=== PATIENT | female | born 1970 | race Caucasian/White ===

== ENCOUNTER 2020-01-04 20:02 | Emergency (ER) | payer OTHER ==
--- OUTSIDE RECORDS SUMMARY | 2020-01-04 20:04 | XMS REPORT | Continuity of Care Document ---
:1970 Author Organization [facility] t Address [address] [place] [address] [address] [place] [address] Care Team Providers Name Role Phone Pob1, [facility] Attending Clinician Unavailable Problems This patient has no known problems. Allergies, Adverse Reactions, Alerts This patient has no known allergies or adverse reactions. Medications This patient has no known medications. Procedures This patient has no known procedures. Encounters Start End Encounter Admission Attending Care Care Encounter Source Date/Time Date/Time Type Type Clinicians Facility Department ID 2019-05-09 2019-05-09 Telephone Pob1, Acute [facility] [id number] 00:00:00 00:00:00 [facility] [id number] [place] [id number] Mirtha [phone] nal [address] One Results This patient has no known results.
[2020-01-04] MEDS ORDERED: LIDOCAINE VISCOUS 2% SOLN 15 ML UDC ONE (21:41)
[2020-01-04] MEDS ORDERED: MAGNES/ALUMIN/SIMET 30ML UCUP ONE (21:41)
[2020-01-04 22:01] LABS: Absolute Lymphocytes (CBC) 1.9 K/uL (0.7-4.9); Hematocrit 39.5 % (36.0-45.0); Lymphocytes % 17.4 % (15.3-44.8); MPV 9.8 fL (7.6-11.3); RBC Red Blood Cell Count 4.62 M/uL (3.86-4.86)
[2020-01-04 22:02] LABS: Protime INR 0.95
[2020-01-04 22:12] LABS: ALT/SGPT 25 U/L (12-78); AST/SGOT 16 U/L (15-37); Albumin 3.9 g/dL (3.4-5.0); Alkaline Phosphatase 112 U/L (45-117); BUN Blood Urea Nitrogen 7 mg/dL (7-18); Bicarbonate 28 mmol/L (21-32); Bilirubin Direct < 0.1 mg/dL (0-0.2); Bilirubin Total 0.2 mg/dL (0.2-1.0); Glucose Level 94 mg/dL (74-106); Lipase 86 U/L (73-393); Magnesium 2.4 mg/dL (1.8-2.4); NT PRO-BNP 54 pg/mL (<125); Potassium 3.6 mmol/L (3.5-5.1); Protein, Total 7.2 g/dL (6.4-8.2); Sodium Level 142 mmol/L (136-145); Troponin (Emerg Dept Use Only) < 0.02 ng/mL (0.0-0.045)
[2020-01-04] MEDS ORDERED: FAMOTIDINE 20 MG/2 ML VIAL IV ONE (22:19)
[2020-01-04 23:20] LABS: Urine Blood TRACE (NEG); Urine Glucose NEGATIVE (NEG); Urine Protein NEGATIVE (NEG)
--- NOTE | 2020-01-05 01:29 | ER ---
Nurse's Notes [facility] Name: Winter Hubbard Age: 49 yrs Sex: Female : 1970 Arrival Date: 01/04/2020 Time: 20:05 Bed 15 Private MD: Diagnosis: Globus Sensation of throat Presentation: 01/03 20:20 Chief complaint: Patient states: Pressure to throat area since last night. States she ll1 took her nighttime pills last night, then ate gumbo. Feels like something might be stuck. 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 Coronavirus screen: Client denies travel out of the [place] in the last 14 days. At this time, the client does not indicate any symptoms associated with coronavirus-19. Ebola Screen: Patient denies travel to an Ebola-affected area in the 21 days before illness onset. Initial Sepsis Screen: Does the patient meet any 2 criteria? HR > 90 bpm. No. Patient's initial sepsis screen is negative. Does the patient have a suspected source of infection? No. Patient's initial sepsis screen is negative. Risk Assessment: Do you want to hurt yourself or someone else? Patient reports no desire to harm self or others. Onset of symptoms was January 03, 2020. 20:20 Method Of Arrival: Ambulatory ll1 20:20 Acuity: AMALIA 3 ll1 Triage Assessment: 21:09 General: Appears uncomfortable, well groomed, Behavior is calm, cooperative. Pain: cr4 Complains of pain in throat Pain does not radiate. Pain currently is 6 out of 10 on a pain scale. Quality of pain is described as dull, Pain began 3 hours ago. Is intermittent, Aggravated by eating. EENT: No deficits noted. Reports. Neuro: No deficits noted. 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 Denies weakness blurred vision. Cardiovascular: No deficits noted. Reports None Denies chest pain, Heart tones S1 S2. Respiratory: No deficits noted. Airway is patent Trachea midline Respiratory effort is even, unlabored, Respiratory pattern is regular. GI: Patient currently denies nausea, vomiting. : Denies burning with urination, cramping urinary frequency. Derm: No deficits noted. Musculoskeletal: No deficits noted. 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 - Social history:: Smoking status: Patient reports the use of cigarette tobacco products, smokes one pack cigarettes per day. Screenin:10 Abuse screen: Denies threats or abuse. Nutritional screening: No deficits noted. cr4 Tuberculosis screening: No symptoms or risk factors identified. Fall Risk None identified. Assessment: 21:09 General: see triage assessment. cr4 21:40 Reassessment: No changes from previously documented assessment. Patient and/or family cr4 updated on plan of care and expected duration. Pain level reassessed. Patient is alert, oriented x 3, equal unlabored respirations, skin warm/dry/pink. . 22:20 Reassessment: Patient and/or family updated on plan of care and expected duration. Pain cr4 level reassessed. Patient is alert, oriented x 3, equal unlabored respirations, skin warm/dry/pink. Patient states feeling better. Cardiovascular: Denies chest pain, diaphoresis, lightheadedness, shortness of breath. GI: Patient currently denies diarrhea, nausea, pain. EENT: Reports continues to report sensation of having something stuck in her throat.. 23:10 Reassessment: Patient and/or family updated on plan of care and expected duration. Pain cr4 level reassessed. Patient is alert, oriented x 3, equal unlabored respirations, skin warm/dry/pink. Patient states feeling better. Respiratory: No deficits noted. 01/04 00:51 Reassessment: Patient and/or family updated on plan of care and expected duration. Pain cr4 level reassessed. Patient states feeling better. patient sleeping easily woken up.. 01:25 Reassessment: Patient states feeling better. Patient states symptoms have improved. cr4 states improvement after CT contrast, Patient up to Br.. Vital Signs: 01/03 20:20 BP 140 / 106; Pulse 93; Resp 16; Temp 97.7; Pulse Ox 98% on R/A; Weight 61.23 kg; ll1 Height 5 ft. 1 in. (154.94 cm); Pain 6/10; 21:09 BP 146 / 88; Pulse 82; Resp 18; Temp 98.4; Pulse Ox 98% ; Pain 4/10; cr4 22:34 BP 119 / 70; Pulse 82; Resp 18; Temp 98.7; Pulse Ox 94% ; Pain 4/10; cr4 01/04 00:48 BP 121 / 57; Pulse 73; Resp 18; Pulse Ox 96% ; Pain 4/10; cr4 01:00 BP 114 / 63; Pulse 73; Resp 16; Temp 98.7; Pulse Ox 94% ; Pain 3/10; cr4 01/03 20:20 Body Mass Index 25.51 (61.23 kg, 154.94 cm) ll1 ED Course: 01/03 20:05 Patient arrived in ED. ag3 20:23 Triage completed. ll1 20:24 Arm band placed on. ll1 21:04 Roldan Jimnéez MD is Attending Physician. 7 21:30 Inserted saline lock: 20 gauge in right antecubital area, using aseptic technique. cr4 22:00 Patient has correct armband on for positive identification. Bed in low position. Call cr4 light in reach. Side rails up X2. 22:00 Lights dimmed. Warm blanket given. cr4 22:09 XRAY Chest (1 view) In Process Unspecified. EDMS 23:29 Zion Burgess, RN is Primary Nurse. jb4 01/04 00:36 CT Soft Tissue Neck W/contr In Process Unspecified. EDMS 00:50 Vicky Trimble, RN is Primary Nurse. cr4 01:00 No provider procedures requiring assistance completed. cr4 01:27 Nargis Moseley MD is Referral Physician. mh7 01:27 Suhail Walsh MD is Referral Physician. mh7 01:40 IV discontinued, intact, bleeding controlled. cr4 03:42 Throat Culture Sent. cr4 Administered Medications: 01/03 21:40 Drug: GI Cocktail without - (Maalox Suspension 30 ml, Lidocaine Liquid 2 % 15 cr4 ml) Route: PO; 22:00 Follow up: Response: No adverse reaction cr4 22:30 Follow up: Response: No adverse reaction; Pain is decreased cr4 22:16 Drug: Pepcid 20 mg Route: IVP; Site: right antecubital; cr4 22:40 Follow up: Response: No adverse reaction cr4 Outcome: 01/04 01:28 Discharge ordered by MD. do 01:40 Discharged to home ambulatory. cr4 01:40 Condition: good 01:40 Discharge instructions given to patient, Instructed on discharge instructions, follow up and referral plans. Demonstrated understanding of instructions, follow-up care. 01:44 Patient left the ED. cr4 Signatures: Dispatcher [employer] Vicky Hua RN RN cr4 Zion Burgess RN RN jb4 Haylee Elizondo Lynsay RN RN ll1 Roldan Jiménez MD MD mh7 Corrections: (The following items were deleted from the chart) 03:35 01:00 Inserted saline lock: 20 gauge in right antecubital area, using aseptic cr4 technique. cr4
--- NOTE | 2020-01-05 01:29 | EDPHYS ---
Physician Documentation [facility] [place], [place] Name: Winter Hubbard Age: 49 yrs Sex: Female : 1970 Arrival Date: 01/04/2020 Time: 20:05 Bed 15 Private MD: BENNY Physician Roldan Jiménez HPI: 01/03 21:50 This 49 yrs old Female presents to ER via Ambulatory with complaints of mh7 Difficulty Swallowing. 21:50 The patient presents with pain with swallowing. The patient describes throat pain as mh7 intermittent. Onset: The symptoms/episode began/occurred yesterday. Severity of symptoms: At their worst the symptoms were moderate, yesterday, in the emergency department the symptoms have improved, moderately. Modifying factors: The symptoms are alleviated by nothing, the symptoms are aggravated by foods, swallowing, Patient's oral intake status: good Denies contact with similarly ill indivduals. Associated signs and symptoms: Pertinent positives: chest pain, , Pertinent negatives chills, cough, diarrhea, dysphagia, earache, fever, flu-like symptoms, headache, nausea, rhinorrhea, shortness of breath, sore throat, vomiting. Patient reports pain in throat and chest area that started yesterday after taking a few bites of gumbo. States that pain is worse with swallowing. She has been able to eat food and swallow liquids. She denies any fever, SOB, nausea, vomiting, abdominal pain.. 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 - Social history:: Smoking status: Patient reports the use of cigarette tobacco products, smokes one pack cigarettes per day. ROS: 21:50 Constitutional: Negative for fever, chills, and weight loss, Eyes: Negative for injury, mh7 pain, redness, and discharge, Neck: Negative for injury, pain, and swelling, Respiratory: Negative for shortness of breath, cough, wheezing, and pleuritic chest pain, Abdomen/GI: Negative for abdominal pain, nausea, vomiting, diarrhea, and constipation, Back: Negative for injury and pain, : Negative for injury, bleeding, discharge, and swelling, MS/Extremity: Negative for injury and deformity, Skin: Negative for injury, rash, and discoloration, Neuro: Negative for headache, weakness, numbness, tingling, and seizure, Psych: Negative for depression, anxiety, suicide ideation, homicidal ideation, and hallucinations, Allergy/Immunology: Negative for hives, rash, and allergies, Endocrine: Negative for neck swelling, polydipsia, polyuria, polyphagia, and marked weight changes, Hematologic/Lymphatic: Negative for swollen nodes, abnormal bleeding, and unusual bruising. Exam: 21:50 Constitutional: This is a well developed, well nourished patient who is awake, alert, mh7 and in no acute distress. Head/Face: Normocephalic, atraumatic. Eyes: Pupils equal round and reactive to light, extra-ocular motions intact. Lids and lashes normal. Conjunctiva and sclera are non-icteric and not injected. Cornea within normal limits. Periorbital areas with no swelling, redness, or edema. ENT: Nares patent. No nasal discharge, no septal abnormalities noted. Tympanic membranes are normal and external auditory canals are clear. Oropharynx with no redness, swelling, or masses, exudates, or evidence of obstruction, uvula midline. Mucous membranes moist. Neck: Trachea midline, no thyromegaly or masses palpated, and no cervical lymphadenopathy. Supple, full range of motion without nuchal rigidity, or vertebral point tenderness. No Meningismus. Chest/axilla: Normal chest wall appearance and motion. Nontender with no deformity. No lesions are appreciated. Cardiovascular: Regular rate and rhythm with a normal S1 and S2. No gallops, murmurs, or rubs. Normal PMI, no JVD. No pulse deficits. Respiratory: Lungs have equal breath sounds bilaterally, clear to auscultation and percussion. No rales, rhonchi or wheezes noted. No increased work of breathing, no retractions or nasal flaring. Abdomen/GI: Soft, non-tender, with normal bowel sounds. No distension or tympany. No guarding or rebound. No evidence of tenderness throughout. Back: No spinal tenderness. No costovertebral tenderness. Full range of motion. Skin: Warm, dry with normal turgor. Normal color with no rashes, no lesions, and no evidence of cellulitis. MS/ Extremity: Pulses equal, no cyanosis. Neurovascular intact. Full, normal range of motion. Neuro: Awake and alert, GCS 15, oriented to person, place, time, and situation. Cranial nerves II-XII grossly intact. Motor strength 5/5 in all extremities. Sensory grossly intact. Cerebellar exam normal. Normal gait. Psych: Awake, alert, with orientation to person, place and time. Behavior, mood, and affect are within normal limits. Vital Signs: 20:20 BP 140 / 106; Pulse 93; Resp 16; Temp 97.7; Pulse Ox 98% on R/A; Weight 61.23 kg; ll1 Height 5 ft. 1 in. (154.94 cm); Pain 6/10; 21:09 BP 146 / 88; Pulse 82; Resp 18; Temp 98.4; Pulse Ox 98% ; Pain 4/10; cr4 22:34 BP 119 / 70; Pulse 82; Resp 18; Temp 98.7; Pulse Ox 94% ; Pain 4/10; cr4 01/04 00:48 BP 121 / 57; Pulse 73; Resp 18; Pulse Ox 96% ; Pain 4/10; cr4 01:00 BP 114 / 63; Pulse 73; Resp 16; Temp 98.7; Pulse Ox 94% ; Pain 3/10; cr4 01/03 20:20 Body Mass Index 25.51 (61.23 kg, 154.94 cm) ll1 MDM: 01:25 Differential diagnosis: Allergic rhinitis, bronchitis, chemical burn, epiglottitis, mh7 gastroesophageal reflux disease, laryngitis, peritonsillar abscess pharyngitis, retropharyngeal abcess upper respiratory infection, uvulitis. Data reviewed: vital signs, nurses notes, lab test result(s), cardiac enzymes, CBC, electrolytes, urinalysis, EKG, radiologic studies, CT scan, plain films. Data interpreted: Pulse oximetry: on room air is 98 %. Interpretation: normal. Counseling: I had a detailed discussion with the patient and/or guardian regarding: the historical points, exam findings, and any diagnostic results supporting the discharge/admit diagnosis, the presence of at least one elevated blood pressure reading (>120/80) during this emergency department visit, lab results, radiology results, the need for outpatient follow up, to return to the emergency department if symptoms worsen or persist or if there are any questions or concerns that arise at home. Response to treatment: the patient's symptoms have resolved after treatment, the patient's blood pressure is in an acceptable range, mental status has returned to baseline, the patient no longer shows bradycardia, the patient is not short of breath, the patient is not tachycardic, the patient's pain is gone, the patient's temperature has normalized, Tolerating PO intake without difficulty. 01:[address] [facility] 01/03 21:23 Order name: Basic Metabolic Panel; Complete Time: 22:47 [facility] 01/03 21:23 Order name: CBC with Diff; Complete Time: 22:47 [facility] 01/03 21:23 Order name: LFT's; Complete Time: 22:47 [facility] 01/03 21:23 Order name: Magnesium; Complete Time: 22:47 [facility] 01/03 21:23 Order name: NT PRO-BNP; Complete Time: 22:47 [facility] 01/03 21:23 Order name: PT-INR; Complete Time: 22:47 [facility] 01/03 21:23 Order name: Troponin (emerg Dept Use Only); Complete Time: 22:47 [facility] 01/03 21:23 Order name: XRAY Chest (1 view) [facility] 01/03 21:57 Order name: Rapid Strep; Complete Time: 22:47 [facility] 01/03 22:00 Order name: Lipase; Complete Time: 22:47 [facility] 01/03 22:43 Order name: Throat Culture [facility] 01/03 23:19 Order name: Urine Dipstick--Ancillary (enter results); Complete Time: 23:24 [facility] 01/03 23:19 Order name: Urine --Ancillary (enter results); Complete Time: 23:24 [facility] 01/03 21:23 Order name: EKG; Complete Time: 21:24 [facility] 01/03 21:23 Order name: Cardiac monitoring [facility] 01/03 21:23 Order name: EKG - Nurse/Tech; Complete Time: 21:31 [facility] 01/03 21:23 Order name: IV Saline Lock; Complete Time: 21:42 [facility] 01/03 21:23 Order name: Labs collected and sent; Complete Time: 03:05 [facility] 01/03 21:23 Order name: O2 Per Protocol; Complete Time: 03:05 [facility] 01/03 21:23 Order name: O2 Sat Monitoring; Complete Time: 21:42 [facility] 01/03 21:23 Order name: Urine Dipstick-Ancillary (obtain specimen); Complete Time: 03:02 [facility] 01/03 21:23 Order name: Urine Test (obtain specimen); Complete Time: 03:02 [facility] 01/03 23:16 Order name: CT Soft Tissue Neck W/contr [facility] Administered Medications: 01/03 21:40 Drug: GI Cocktail without - (Maalox Suspension 30 ml, Lidocaine Liquid 2 % 15 cr4 ml) Route: PO; 22:00 Follow up: Response: No adverse reaction cr4 22:30 Follow up: Response: No adverse reaction; Pain is decreased cr4 22:16 Drug: Pepcid 20 mg Route: IVP; Site: right antecubital; cr4 22:40 Follow up: Response: No adverse reaction cr4 Disposition: 01/05/20 01:28 Discharged to Home. Impression: Globus Sensation of throat. - Condition is Stable. - Discharge Instructions: Dysphagia, Swallowed Foreign Body, Adult, [id number]. - Medication Reconciliation Form, Thank You Letter, Antibiotic Education, Prescription Opioid Use form. - Follow up: Private Physician; When: 1 - 2 days; Reason: Worsening of condition, Recheck today's complaints, Continuance of care, Re-evaluation by your physician. Follow up: Nargis Moseley MD; When: 1 - 2 days; Reason: Worsening of condition, Recheck today's complaints. Follow up: Suhail Walsh MD; When: 1 - 2 days; Reason: Worsening of condition, Recheck today's complaints. - Problem is new. - Symptoms have improved. Signatures: Dispatcher [employer] [facility] Vicky Trimble RN RN cr4 Karuna Rodriguez RN RN ll1 Roldan Jiménez MD MD 7 Corrections: (The following items were deleted from the chart) 22:00 21:57 LIPASE+C.LAB.BRZ ordered. [facility] 01/04 01:44 01:28 01/05/2020 01:28 Discharged to Home. Impression: Globus Sensation of throat. cr4 Condition is Stable. Forms are Medication Reconciliation Form, Thank You Letter, Antibiotic Education, Prescription Opioid Use. Follow up: Private Physician; When: 1 - 2 days; Reason: Worsening of condition, Recheck today's complaints, Continuance of care, Re-evaluation by your physician. Follow up: Nargis Moseley; When: 1 - 2 days; Reason: Worsening of condition, Recheck today's complaints. Follow up: Suhail Walsh; When: 1 - 2 days; Reason: Worsening of condition, Recheck today's complaints. Problem is new. Symptoms have improved. mh7
--- NOTE | 2020-01-05 08:22 | RAD REPORT ---
EXAM DESCRIPTION: Sammy Single View01/04/2020 10:09 pm CLINICAL HISTORY: Chest pain COMPARISON: 2015 FINDINGS: The lungs are moderately hyperaerated. The lungs appear clear of acute infiltrate. The heart is normal size IMPRESSION: COPD without visualization acute abnormality
[2020-01-05 11:36] VITALS: BP 140/106; TEMP 97.7; O2SAT 98
--- NOTE | 2020-01-07 11:22 | RAD REPORT ---
EXAM DESCRIPTION: CT - Soft Tissue Neck W/Contr - 01/05/2020 7:12 am CLINICAL HISTORY: PAIN TECHNIQUE: Contiguous axial images obtained through the neck following the uneventful administration of IV contrast. Coronal and sagittal reformatted images were provided. This exam was performed according to our departmental dose-optimization program, which includes autom ated exposure control, adjustment of the mA and/or kV according to patient size and/or use of iterati ve reconstruction technique. COMPARISON: None available for comparison FINDINGS: Oropharynx: Unremarkable. No significant tonsillar enlargement. No peritonsillar abscess. Hypopharynx: Unremarkable Larynx: Unremarkable. Normal epiglottis. Trachea: Unremarkable Retropharyngeal space: Unremarkable Submandibular/parotid glands: Unremarkable. Normal in size. Thyroid: Unremarkable Bones/joints: Mild to moderate multilevel degenerative changes. Soft tissues: Unremarkable Vessels: Unremarkable Lymph nodes: No pathologically enlarged lymph nodes. Paranasal sinuses: Bilateral maxillary sinus mucous retention cyst/polyps. Minimal left maxillary sin us mucosal thickening. Mastoid air cells: Well-aerated Lung apices: Centrilobular emphysema. IMPRESSION: 1. No acute inflammatory process identified. 2. Other findings as above. Electronically signed by: Evi Valentin MD 01/05/2020 1:02 AM [employer]OCKROOM ASSOCIATE Due to temporary technical issues with the PACS/Fluency reporting system, reports are being signed by the in house radiologist without review as a courtesy to ensure prompt reporting. The interpreting r adiologist is fully responsible for the content of the report.
== END 2020-01-05 01:44 | disposition home or self-care (01) ==
LOC: ER 20:02
DX: F45.8 Other somatoform disorders (principal); F17.210 Nicotine dependence, cigarettes, uncomplicated
CPT/HCPCS: 93005; 87070; 85025; 80048; 36415; 83735; 81025; 85610; 80076; 87081; 81003; 84484; 83690; 83880; 70491; 71045; 96374; 99284; Q9967

== ENCOUNTER 2020-04-17 21:51 | Emergency (ER) | payer OTHER ==
--- OUTSIDE RECORDS SUMMARY | 2020-04-17 21:54 | XMS REPORT | Continuity of Care Document ---
:1970 Author Organization [facility] t Address [address] [place] [address] Care Team Providers Name Role Phone Pob1, [facility] Attending Clinician Unavailable Problems This patient has no known problems. Allergies, Adverse Reactions, Alerts This patient has no known allergies or adverse reactions. Medications This patient has no known medications. Procedures This patient has no known procedures. Encounters Start End Encounter Admission Attending Care Care Encounter Source Date/Time Date/Time Type Type Clinicians Facility Department ID 2019-05-09 2019-05-09 Telephone Pob1, Acute [facility] [id number] 00:00:00 00:00:00 [facility] [id number] [place] [id number] Mirtha [id number] nal [address] One Results This patient has no known results.
[2020-04-17] MEDS ORDERED: ASPIRIN 81 MG CHEWABLE TABLET ONE (22:59)
[2020-04-17] MEDS ORDERED: KETOROLAC 30 MG/ML INJ ONE (22:59)
[2020-04-17] MEDS ORDERED: NA CHLORIDE 0.9% 500 ML ONE (22:59)
[2020-04-17 23:06] LABS: Absolute Lymphocytes (CBC) 2.1 K/uL (0.7-4.9); Basophils % 1.2 % (0-1.3); Hematocrit 35.6 % (36.0-45.0); Lymphocytes % 36.1 % (15.3-44.8); MPV 9.4 fL (7.6-11.3); RBC Red Blood Cell Count 4.18 M/uL (3.86-4.86)
[2020-04-17 23:08] LABS: Protime INR 0.91
[2020-04-17 23:25] LABS: ALT/SGPT 48 U/L (12-78); AST/SGOT 28 U/L (15-37); Albumin 3.5 g/dL (3.4-5.0); Alkaline Phosphatase 129 U/L (45-117); BUN Blood Urea Nitrogen 10 mg/dL (7-18); Bicarbonate 26 mmol/L (21-32); Bilirubin Direct < 0.1 mg/dL (0-0.2); Bilirubin Total 0.1 mg/dL (0.2-1.0); Glucose Level 94 mg/dL (74-106); Magnesium 2.3 mg/dL (1.8-2.4); NT PRO-BNP 150 pg/mL (<125); Potassium 3.4 mmol/L (3.5-5.1); Protein, Total 6.4 g/dL (6.4-8.2); Sodium Level 140 mmol/L (136-145); Troponin (Emerg Dept Use Only) < 0.02 ng/mL (0.0-0.045)
--- NOTE | 2020-04-18 00:42 | EDPHYS ---
Physician Documentation [facility] Name: Winter Hubbard Age: 50 yrs Sex: Female : 1970 Arrival Date: 04/17/2020 Time: 21:53 Bed 23 Private MD: Everardo Anaya HPI: 04/17 22:29 This 50 yrs old Female presents to ER via Ambulatory with complaints of Back cp Pain, Neck Pain. 22:29 The patient presents with pain that is acute, with no known mechanism of injury. The cp symptoms are located in the left scapular area and left subscapular area. Onset: The symptoms/episode began/occurred yesterday. The pain radiates to the left shoulder and left side of chest. 22:30 Patient reports pain started in area of left mid back/left scapula area 2 days ago. cp Patient denies injury and reports pain worse with certain movements with pain wrapping around side of and to front of left chest. 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 - Social history:: Smoking status: Patient reports the use of cigarette tobacco products, smokes one pack cigarettes per day. ROS: 22:30 Constitutional: Negative for body aches, chills, fever, poor PO intake. cp 22:30 Eyes: Negative for injury, pain, redness, and discharge. cp 22:30 ENT: Negative for ear pain, sore throat, difficulty swallowing, difficulty handling secretions. 22:30 Cardiovascular: Positive for chest pain, of the left side of chest, Negative for edema, palpitations. 22:30 Respiratory: Negative for cough, shortness of breath, wheezing. 22:30 Abdomen/GI: Negative for abdominal pain, nausea, vomiting, and diarrhea. 22:30 Back: Positive for pain at rest, pain with movement, of the left scapular area and left subscapular area. 22:30 Skin: Negative for rash. 22:30 Neuro: Negative for altered mental status, headache, syncope, weakness. 22:30 All other systems are negative. Exam: 22:28 ECG was reviewed by the Attending Physician. cp 22:35 Constitutional: The patient appears in no acute distress, alert, awake, cp non-diaphoretic, non-toxic, well developed, well nourished. 22:35 Head/Face: Normocephalic, atraumatic. cp 22:35 Eyes: Periorbital structures: appear normal, Conjunctiva: normal, no exudate, no injection, Sclera: no appreciated abnormality, Lids and lashes: appear normal, bilaterally. 22:35 ENT: External ear(s): are unremarkable, Nose: is normal, Posterior pharynx: Airway: no evidence of obstruction, patent. 22:35 Neck: C-spine: vertebral tenderness, is not appreciated, crepitus, is not appreciated, ROM/movement: is normal, is supple, without pain, no range of motions limitations. 22:35 Chest/axilla: Inspection: normal, Palpation: is normal, no crepitus, no tenderness. 22:35 Cardiovascular: Rate: normal, Rhythm: regular, Pulses: Pulses are 2+ in right radial artery and left radial artery. Edema: is not appreciated, JVD: is not appreciated. 22:35 Respiratory: the patient does not display signs of respiratory distress, Respirations: normal, no use of accessory muscles, no retractions, labored breathing, is not present, Breath sounds: are clear throughout, no decreased breath sounds, no stridor, no wheezing. 22:35 Abdomen/GI: Exam negative for discomfort, distension, guarding, Inspection: abdomen appears normal. 22:35 Back: pain, that is moderate, of the left scapular area and left subscapular area, ROM is painful, with rotation to the right, with rotation to the left, vertebral tenderness, is not appreciated. 22:35 Skin: cellulitis, is not appreciated, no rash present. 22:35 Neuro: Orientation: to person, place \T\ time. Mentation: is normal, Cerebellar function: is grossly normal, Motor: moves all fours, strength is normal, Sensation: is normal. Vital Signs: 21:59 BP 174 / 104; Pulse 94; Resp 17; Temp 98.3; Pulse Ox 99% ; Weight 61.23 kg; Height 5 ll1 ft. 1 in. (154.94 cm); Pain 7/10; 22:29 BP 134 / 83; Pulse 98; Resp 14; Pulse Ox 99% on R/A; vg1 23:30 BP 141 / 82; Pulse 70; Resp 16; Pulse Ox 100% on R/A; vg1 04/18 00:24 BP 126 / 97; Pulse 79; Resp 17 S; Pulse Ox 98% on R/A; bb 04/17 21:59 Body Mass Index 25.51 (61.23 kg, 154.94 cm) ll1 MDM: 04/17 22:20 Patient medically screened. max 22:30 Differential diagnosis: strain, muscle spasm, acute PA, pulmonary embolism, pneumonia. cp 04/18 00:33 Data reviewed: vital signs, nurses notes, lab test result(s), EKG, radiologic studies, cp plain films. 00:33 Test interpretation: by ED physician or midlevel provider: ECG, plain radiologic cp studies. Counseling: I had a detailed discussion with the patient and/or guardian regarding: the historical points, exam findings, and any diagnostic results supporting the discharge/admit diagnosis, lab results, radiology results, the need for outpatient follow up, a family practitioner, to return to the emergency department if symptoms worsen or persist or if there are any questions or concerns that arise at home. Response to treatment: Pain improved with meds. Los suspicion as cardiac cause of pain. EKG normal, negative troponin and patient with tenderness to palpation in left scapular area. Will discharge to home for continued monitoring. 04/17 22:25 Order name: Basic Metabolic Panel cp 04/17 22:25 Order name: CBC with Diff cp 04/17 22:25 Order name: LFT's cp 04/17 22:59 Order name: Basic Metabolic Panel; Complete Time: 23:39 EDMS 04/17 23:40 Interpretation: Normal except: K 3.4; CL 109; CA 8.1. cp 04/17 22:59 Order name: Liver (Hepatic) Function; Complete Time: 23:39 EDMS 04/17 22:59 Order name: Troponin (Emerg Dept Use Only); Complete Time: 23:39 EDMS 04/17 22:59 Order name: NT PRO-BNP; Complete Time: 23:39 EDMS 04/17 23:00 Order name: Magnesium; Complete Time: 23:39 EDMS 04/17 23:00 Order name: CBC with Automated Diff; Complete Time: 23:39 EDMS 04/17 23:00 Order name: Protime (+INR); Complete Time: 23:39 EDMS 04/17 22:25 Order name: EKG; Complete Time: 00:44 cp 04/17 22:25 Order name: Cardiac monitoring; Complete Time: 22:30 cp 04/17 22:25 Order name: EKG - Nurse/Tech; Complete Time: 22:30 cp 04/17 22:25 Order name: IV Saline Lock; Complete Time: 22:58 cp 04/17 22:25 Order name: Labs collected and sent; Complete Time: 22:58 cp 04/18 00:43 Order name: Chest Single View EDMS 04/17 22:25 Order name: O2 Per Protocol; Complete Time: 22:30 cp 04/17 22:25 Order name: O2 Sat Monitoring; Complete Time: 22:30 cp EC/04 22:28 Rate is 85 beats/min. Rhythm is regular. NH interval is normal. QRS interval is normal. cp QT interval is normal. Interpreted by me. Reviewed by me. Administered Medications: 23:04 Drug: Aspirin Chewable Tablet 324 mg Route: PO; vg1 04/18 00:27 Follow up: Response: No adverse reaction bb 04/17 23:04 Drug: NS 0.9% 500 ml Route: IV; Rate: bolus; Site: right antecubital; vg1 23:04 Drug: TORadol - Ketorolac 15 mg Route: IVP; Site: right antecubital; vg1 04/18 00:27 Follow up: Response: No adverse reaction bb 01:02 Drug: Flexeril 10 mg Route: PO; bb 01:03 Follow up: Response: Medication administered at discharge. bb 01:02 Drug: Potassium Effervescent Tablet 25 mEq Route: PO; bb 01:03 Follow up: Response: Medication administered at discharge. bb 01:03 Drug: Lidoderm 5 % (700 mg/patch) 1 patches Route: Topical; Site: affected area; bb 01:03 Follow up: Response: Medication administered at discharge. bb Disposition: 05:52 Co-signature as Attending Physician, Everardo Diaz MD I agree with the assessment and max plan of care. Disposition: 04/18/20 00:34 Discharged to Home. Impression: Other chest pain, Strain of muscle and tendon of back wall of thorax - left. - Condition is Stable. - Discharge Instructions: Nonspecific Chest Pain, Thoracic Strain, Aspirin and Your Heart, Heat Therapy. - Prescriptions for Lidoderm 5 % Topical adhesive patch,medicated - apply 1 patch by TRANSDERMAL route once daily; 1 box. Cyclobenzaprine 10 mg Oral Tablet - take 1 tablet by ORAL route every 8 hours As needed; 20 tablet. Diclofenac Sodium 75 mg Oral Tablet, Delayed Release (E.C.) - take 1 tablet by ORAL route 2 times per day; 20 tablet. - Medication Reconciliation Form, Thank You Letter, Antibiotic Education, Prescription Opioid Use form. - Follow up: Private Physician; When: 2 - 3 days; Reason: Recheck today's complaints. - Problem is new. - Symptoms have improved. Signatures: Dispatcher [employer] EDCT Everardo Diaz MD MD cha Ballard, Brenda, RN RN bb Everardo Zabala PA PA cp Garcia, Victoria, RN RN vg1 Karuna Rodriguez RN RN ll1 Corrections: (The following items were deleted from the chart) 04/17 23:40 23:39 Normal except: K 3.4; CL 109. cp cp 04/18 01: 00:43 Basic Metabolic Panel ordered. EDCT EDCT 01: 00:43 Liver (Hepatic) Function ordered. [facility] EDCT 01: 00:43 MAGNESIUM+C.LAB.BRZ ordered. [facility] EDCT : 00:44 PROBNP+C.LAB.BRZ ordered. [facility] EDCT 01: 00:44 TROPONIN (EMERG DEPT USE ONLY)+C.LAB.BRZ ordered. [facility] EDCT : 00:43 CBC with Automated Diff ordered. [facility] EDCT : 00:44 PROTIME (+INR)+COAG.LAB.BRZ ordered. [facility] EDCT :05 00:34 04/18/2020 00:34 Discharged to Home. Impression: Other chest pain; Strain of bb muscle and tendon of back wall of thorax - left. Condition is Stable. Forms are Medication Reconciliation Form, Thank You Letter, Antibiotic Education, Prescription Opioid Use. Follow up: Private Physician; When: 2 - 3 days; Reason: Recheck today's complaints. Problem is new. Symptoms have improved. cp
--- NOTE | 2020-04-18 00:42 | ER ---
Nurse's Notes [facility] Name: Winter Hubbard Age: 50 yrs Sex: Female : 1970 Arrival Date: 04/17/2020 Time: 21:53 Bed 23 Private MD: Diagnosis: Other chest pain;Strain of muscle and tendon of back wall of thorax-left Presentation: 04/17 21:59 Chief complaint: Patient states: L posterior shoulder pain for 2 days that radiates ll1 into L arm and L lateral chest. + dizzy. Coronavirus screen: Client denies travel out of the [place] in the last 14 days. At this time, the client does not indicate any symptoms associated with coronavirus-19. Ebola Screen: Patient denies travel to an Ebola-affected area in the 21 days before illness onset. Initial Sepsis Screen: Does the patient meet any 2 criteria? HR > 90 bpm. No. Patient's initial sepsis screen is negative. Does the patient have a suspected source of infection? No. Patient's initial sepsis screen is negative. Risk Assessment: Do you want to hurt yourself or someone else? Patient reports no desire to harm self or others. Onset of symptoms was April 16, 2020. 21:59 Method Of Arrival: Ambulatory ll1 21:59 Acuity: AMALIA 3 ll1 RADIOLOGY SPECIAL PROCEDURE TECH: 04/18 01:05 LMP N/A - bb Historical: - Allergies: 04/17 22:01 No Known Allergies; ll1 - PMHx: 22:01 Bipolar disorder; Hypothyroidism; ll1 - PSHx: 22:01 ectopic ; ; ll1 - Immunization history:: Flu vaccine is not up to date. - Social history:: Smoking status: Patient reports the use of cigarette tobacco products, smokes one pack cigarettes per day. Screenin:30 Abuse screen: Denies threats or abuse. Nutritional screening: No deficits noted. vg1 Tuberculosis screening: No symptoms or risk factors identified. Fall Risk No fall in past 12 months (0 pts). No secondary diagnosis (0 pts). IV access (20 points). Ambulatory Aid- None/Bed Rest/Nurse Assist (0 pts). Gait- Normal/Bed Rest/Wheelchair (0 pts) Mental Status- Oriented to own ability (0 pts). Total Troy Fall Scale indicates No Risk (0-24 pts). Assessment: 22:27 General: Appears in no apparent distress. comfortable, Behavior is calm, cooperative. vg1 Pain: Complains of pain in Left posterior shoulder that radiates to the left arm and left lateral chest Pain currently is 0 out of 10 on a pain scale. at worst was 7 out of 10 on a pain scale. Alleviated by rest, Aggravated by increased activity. Neuro: Level of Consciousness is awake, alert, obeys commands, Oriented to person, place, time, situation. Cardiovascular: Patient's skin is warm and dry. Rhythm is sinus rhythm. Respiratory: Airway is patent Respiratory effort is even, unlabored, Respiratory pattern is regular, symmetrical, Breath sounds are clear bilaterally. GI: No signs and/or symptoms were reported involving the gastrointestinal system. : No signs and/or symptoms were reported regarding the genitourinary system. EENT: No signs and/or symptoms were reported regarding the EENT system. Derm: Skin is intact, is healthy with good turgor. Musculoskeletal: Circulation, motion, and sensation intact. 23:39 Reassessment: Patient appears in no apparent distress at this time. No changes from vg1 previously documented assessment. Patient and/or family updated on plan of care and expected duration. Pain level reassessed. Patient is alert, oriented x 3, equal unlabored respirations, skin warm/dry/pink. 04/18 00:23 Reassessment: Patient and/or family updated on plan of care and expected duration. Pain bb level reassessed. Patient is alert, oriented x 3, equal unlabored respirations, skin warm/dry/pink. IV site intact, no erythema or edema noted. Pt awaiting repeat cardiac enzymes. 01:04 Reassessment: Patient is alert, oriented x 3, equal unlabored respirations, skin bb warm/dry/pink. pt verbalized understanding of and agrees to plan of care discharge instructions given pt ambulated with steady gait to exit. Vital Signs: 04/17 21:59 BP 174 / 104; Pulse 94; Resp 17; Temp 98.3; Pulse Ox 99% ; Weight 61.23 kg; Height 5 ll1 ft. 1 in. (154.94 cm); Pain 7/10; 22:29 BP 134 / 83; Pulse 98; Resp 14; Pulse Ox 99% on R/A; vg1 23:30 BP 141 / 82; Pulse 70; Resp 16; Pulse Ox 100% on R/A; vg1 04/18 00:24 BP 126 / 97; Pulse 79; Resp 17 S; Pulse Ox 98% on R/A; bb 04/17 21:59 Body Mass Index 25.51 (61.23 kg, 154.94 cm) ll1 ED Course: 04/17 21:53 Patient arrived in ED. cl3 22:00 Triage completed. ll1 22:01 Arm band placed on. ll1 22:05 Victoria Saenz, ISAAC is Primary Nurse. vg1 22:17 Everardo Zabala PA is PHCP. cp 22:17 Everardo Diaz MD is Attending Physician. cp 22:31 Patient has correct armband on for positive identification. Placed in gown. Bed in low vg1 position. Call light in reach. Side rails up X 1. 22:58 Initial lab(s) drawn, by me, sent to lab. Inserted saline lock: 20 gauge in right vg1 antecubital area, using aseptic technique. Blood collected. 04/18 01:04 Chest Single View In Process Unspecified. EDMS 01:04 No provider procedures requiring assistance completed. IV discontinued, intact, bb bleeding controlled, No redness/swelling at site. Pressure dressing applied. Administered Medications: 04/17 23:04 Drug: Aspirin Chewable Tablet 324 mg Route: PO; vg1 04/18 00:27 Follow up: Response: No adverse reaction bb 04/17 23:04 Drug: NS 0.9% 500 ml Route: IV; Rate: bolus; Site: right antecubital; vg1 23:04 Drug: TORadol - Ketorolac 15 mg Route: IVP; Site: right antecubital; vg1 04/18 00:27 Follow up: Response: No adverse reaction bb 01:02 Drug: Flexeril 10 mg Route: PO; bb 01:03 Follow up: Response: Medication administered at discharge. bb 01:02 Drug: Potassium Effervescent Tablet 25 mEq Route: PO; bb 01:03 Follow up: Response: Medication administered at discharge. bb 01:03 Drug: Lidoderm 5 % (700 mg/patch) 1 patches Route: Topical; Site: affected area; bb 01:03 Follow up: Response: Medication administered at discharge. bb Outcome: 00:34 Discharge ordered by . cp 01:04 Discharged to home ambulatory. bb 01:04 Condition: stable 01:04 Discharge instructions given to patient, Instructed on discharge instructions, follow up and referral plans. medication usage, Demonstrated understanding of instructions, follow-up care, medications, Prescriptions given X 3. 01:05 Patient left the ED. bb Signatures: Dispatcher [employer] EDMS Caitlyn Mccormick RN RN bb Everardo Zabala PA PA cp Lewis, Charde cl3 Victoria Saenz RN RN vg1 Karuna Rodriguez RN RN ll1
[2020-04-18] MEDS ORDERED: POTASSIUM 25 MEQ EFFERV TAB ONE (01:08)
[2020-04-18] MEDS ORDERED: CYCLOBENZAPRINE 10 MG TAB ONE (01:08)
[2020-04-18] MEDS ORDERED: LIDOCAINE 4% PATCH ONE (01:09)
[2020-04-18 01:20] VITALS: TEMP 98.3
[2020-04-18 01:23] VITALS: BP 126/97; O2SAT 98
--- NOTE | 2020-04-18 08:29 | RAD REPORT ---
EXAM DESCRIPTION: RAD - Chest Single View - 04/18/2020 1:04 am CLINICAL HISTORY: LT MID BACK PAIN, CHEST PAIN COMPARISON: December 2019 TECHNIQUE: AP portable chest image was obtained 04/18/2020 1:04 am . FINDINGS: Lungs are clear. Heart and vasculature are normal. No measurable pleural effusion and no p neumothorax. No acute bone abnormality. Patient does have narrowing of the acromial humeral joint spa ce at the lateral margin with soft tissue calcification. No acute aortic findings suspected. IMPRESSION: No acute cardiopulmonary process. Left calcific tendinosis/tendinitis findings are evident but mild fully assessed on portable chest im aging. Correlation is needed to determine if tendon or rotator cuff process could be the source for the lillian ent's pain pattern.
== END 2020-04-18 01:05 | disposition home or self-care (01) ==
LOC: ER 21:51
DX: S29.012A Strain of muscle and tendon of back wall of thorax, initial encounter (principal); F17.210 Nicotine dependence, cigarettes, uncomplicated
CPT/HCPCS: 93005; 85025; 80048; 36415; 83735; 85610; 80076; 84484; 83880; 71045; 96374; 99284; J7040

== ENCOUNTER 2020-07-16 20:01 | Emergency (ER) | payer OTHER ==
--- OUTSIDE RECORDS SUMMARY | 2020-07-16 20:04 | XMS REPORT | Continuity of Care Document ---
:1970 Author Organization [facility] t Address [address] [place] [address] Care Team Providers Name Role Phone ADAN Attending Clinician Unavailable MD Atul ARELLANO Attending Clinician Unavailable Pob[facility], [facility] Attending Clinician Unavailable ADAN Admitting Clinician Unavailable MD Atul ARELLANO Admitting Clinician Unavailable Problems This patient has no known problems. Allergies, Adverse Reactions, Alerts This patient has no known allergies or adverse reactions. Medications This patient has no known medications. Procedures This patient has no known procedures. Encounters Start End Encounter Admission Attending Care Care Encounter Source Date/Time Date/Time Type Type Clinicians Facility Department ID 2020-07-02 2020-07-02 Outpatient [facility] [id number] [place] 00:00:00 00:00:00 [facility]ATEEK 723 [facility] 2020-07-01 2020-07-01 Outpatient ED [facility] [id number] [place] 00:00:00 00:00:00 PRATEEK 533 [facility] 2020-06-26 2020-06-26 Outpatient ED [facility] [id number] [place] 00:00:00 00:00:00 PRATEEK 749 [facility] i 2020-06-26 2020-06-26 Outpatient ED [facility] [id number] [place] 00:00:00 00:00:00 PRATEEK 826 [facility] i 2020-06-26 2020-06-26 Outpatient ED [facility] [id number] [place] 00:00:00 00:00:00 PRATEEK 456 Method i 2020-06-26 2020-06-26 Outpatient [facility] [id number] [place] 00:00:00 00:00:00 PRATEEK 574 Method i 2020-06-26 2020-06-26 Outpatient [facility] [id number] [place] 00:00:00 00:00:00 PRATEEK 307 Method i 2020-06-26 2020-06-26 Outpatient [facility] [id number] [place] 00:00:00 00:00:00 PRATEEK 498 Method i 2019-05-09 2019-05-09 Telephone Pob1, Acute [facility] [id number] 00:00:00 00:00:00 [facility] [id number] [place] [id number] [id number] [place] [address] Results Test Description Test Time Test Comments Results Result Comments Source SARS-CoV-2 (COVID-19) RNA [Presence] in Respiratory sp ecimen by 2020-07-01 18:09:13 TRAY with probe detection Test Item Value Reference Range Interpretation Comme nts SARS-CoV-2 (COVID-19) RNA [Presence] in Respiratory Not detected No t-Detected specimen by TARY with probe detection (test code = 96901-9) Whether patient is employed in a healthcare setting (test code = 30313-6) Whether the patient has symptoms related to condition of interest (test code = 56049-6) Patient was hospitalized because of this condition (test code = 44263-6) Whether the patient was admitted to intensive care unit (ICU) for condition of interest (test code = 30153-3) Whether patient resides in a congregate care setting (test code = 54939-1)
--- NOTE | 2020-07-16 21:15 | RAD REPORT ---
EXAM DESCRIPTION: RAD - Chest Single View - 07/16/2020 8:53 pm CLINICAL HISTORY: near syncope, chest pain COMPARISON: Portable April 17 TECHNIQUE: AP portable chest image was obtained 07/16/2020 8:53 pm . FINDINGS: Lungs are clear. Heart and vasculature are normal. No measurable pleural effusion and no p neumothorax. No acute bony abnormality seen. No acute aortic findings suspected. IMPRESSION: No acute cardiopulmonary process. No significant change from comparison study.
[2020-07-16] MEDS ORDERED: NA CHLORIDE 0.9% 1,000 ML ONE (21:23)
[2020-07-16 21:33] LABS: Absolute Lymphocytes (CBC) 2.1 K/uL (0.7-4.9); Basophils % 0.8 % (0-1.3); Hematocrit 39.6 % (36.0-45.0); Lymphocytes % 23.9 % (15.3-44.8); MPV 9.5 fL (7.6-11.3); RBC Red Blood Cell Count 4.64 M/uL (3.86-4.86)
[2020-07-16] MEDS ORDERED: FENTANYL CITR 100 MCG/2 ML ONE (21:35)
[2020-07-16 21:41] LABS: Protime INR 1.01
[2020-07-16 21:53] LABS: ALT/SGPT 26 U/L (12-78); AST/SGOT 18 U/L (15-37); Albumin 3.9 g/dL (3.4-5.0); Alkaline Phosphatase 103 U/L (45-117); BUN Blood Urea Nitrogen 7 mg/dL (7-18); Bicarbonate 24 mmol/L (21-32); Bilirubin Direct < 0.1 mg/dL (0-0.2); Bilirubin Total 0.3 mg/dL (0.2-1.0); Glucose Level 99 mg/dL (74-106); Magnesium 2.4 mg/dL (1.8-2.4); NT PRO-BNP 96 pg/mL (<125); Potassium 3.4 mmol/L (3.5-5.1); Protein, Total 7.1 g/dL (6.4-8.2); Sodium Level 144 mmol/L (136-145); Troponin (Emerg Dept Use Only) < 0.02 ng/mL (0.0-0.045)
[2020-07-16] MEDS ORDERED: KETOROLAC 30 MG/ML INJ ONE (22:43)
[2020-07-16] MEDS ORDERED: LORazepam 2 MG/ML VIAL ONE (23:18)
--- NOTE | 2020-07-16 23:21 | ER ---
Nurse's Notes [facility] Name: Winter Hubbard Age: 50 yrs Sex: Female : 1970 Arrival Date: 07/16/2020 Time: 20:13 Bed 19 Private MD: Diagnosis: Headache;Anxiety disorder, unspecified Presentation: 07/16 20:10 Chief complaint: EMS states: complaining of neck pain, pressure in the area,feeling hot rr5 and feeling about to pass out started last night. had a neck C6-C7 surgery 2-3 weeks ago. 20:10 Coronavirus screen: Client denies travel out of the [place] in the last 14 days. At this rr5 time, the client does not indicate any symptoms associated with coronavirus-19. Ebola Screen: Patient negative for fever greater than or equal to 101.5 degrees Fahrenheit, and additional compatible Ebola Virus Disease symptoms Patient denies exposure to infectious person. Patient denies travel to an Ebola-affected area in the 21 days before illness onset. Acute neurological deficit: none identified. Initial Sepsis Screen: Does the patient meet any 2 criteria? No. Patient's initial sepsis screen is negative. Does the patient have a suspected source of infection? No. Patient's initial sepsis screen is negative. Risk Assessment: Do you want to hurt yourself or someone else? Patient reports no desire to harm self or others. Onset of symptoms was July 15, 2020. Care prior to arrival: Medication(s) given: Tylenol, taken 1500mg evry 2-3 hours by the patient. 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 - Social history:: Smoking status: Patient reports the use of cigarette tobacco products, smokes one pack cigarettes per day. Screenin:20 Abuse screen: Denies threats or abuse. Denies injuries from another. Nutritional rr5 screening: No deficits noted. Tuberculosis screening: No symptoms or risk factors identified. Fall Risk IV access (20 points). Total Troy Fall Scale indicates No Risk (0-24 pts). Assessment: 20:10 General: Appears in no apparent distress. comfortable, Behavior is calm, cooperative, rr5 appropriate for age. Pain: Complains of pain in head and neck Pain currently is 5 out of 10 on a pain scale. Quality of pain is described as aching, Pain began gradually, Is intermittent. Neuro: Level of Consciousness is awake, alert, obeys commands, Oriented to person, place, time. Neuro: Reports headache. Cardiovascular: Capillary refill < 3 seconds Patient's skin is warm and dry. Respiratory: Airway is patent Respiratory effort is even, unlabored, Respiratory pattern is regular, symmetrical. GI: No signs and/or symptoms were reported involving the gastrointestinal system. : No signs and/or symptoms were reported regarding the genitourinary system. EENT: No signs and/or symptoms were reported regarding the EENT system. Derm: Skin is intact, is healthy with good turgor, Skin temperature is warm Reports feeling hot. Musculoskeletal: Capillary refill < 3 seconds. 21:10 Reassessment: Patient appears in no apparent distress at this time. Patient and/or rr5 family updated on plan of care and expected duration. Pain level reassessed. Patient is alert, oriented x 3, equal unlabored respirations, skin warm/dry/pink. 21:52 Reassessment: Patient appears in no apparent distress at this time. Patient is alert, rr5 oriented x 3, equal unlabored respirations, skin warm/dry/pink. awaiting for results. 22:30 Reassessment: Patient appears in no apparent distress at this time. Patient is alert, rr5 oriented x 3, equal unlabored respirations, skin warm/dry/pink. 23:20 Reassessment: Patient appears in no apparent distress at this time. Patient is alert, rr5 oriented x 3, equal unlabored respirations, skin warm/dry/pink. discharge instruction given and explained without complaints made Patient states feeling better. Patient states symptoms have improved. Vital Signs: 20:10 BP 123 / 73; Pulse 82; Resp 17; Temp 98.7; Pulse Ox 99% ; Weight 61.23 kg; Height 5 ft. rr5 1 in. (154.94 cm); 21:18 BP 133 / 73 Supine; Pulse 70; Resp 16; Pulse Ox 99% ; rr5 21:20 BP 135 / 81 Sitting; Pulse 71; Resp 18; Pulse Ox 98% ; rr5 21:22 BP 130 / 79 Standing; Pulse 76; Resp 15; Pulse Ox 100% ; rr5 22:00 BP 141 / 79; Pulse 73; Resp 15; Pulse Ox 98% ; rr5 22:30 BP 150 / 87; Pulse 70; Resp 19; Pulse Ox 98% ; rr5 23:00 BP 155 / 85; Pulse 79; Resp 17; Pulse Ox 100% ; rr5 20:10 Body Mass Index 25.51 (61.23 kg, 154.94 cm) rr5 ED Course: 20:13 Patient arrived in ED. rr5 20:17 Everardo Zabala PA is PHCP. cp 20:17 Bryce Rondon MD is Attending Physician. cp 20:23 Triage completed. rr5 20:28 Sachin Leija, RN is Primary Nurse. rr5 20:28 Arm band placed on right wrist. rr5 20:30 Patient has correct armband on for positive identification. Bed in low position. Call rr5 light in reach. telemetry monitor on. Pulse ox on. NIBP on. 20:52 XRAY Chest (1 view) In Process Unspecified. EDMS 21:10 Maintain EMS IV. Dressing intact. Good blood return noted. Site clean \T\ dry. Gauge \T\ rr 5 site: g 20 right forearm. 21:30 EKG done, by ED staff, reviewed by Everardo TRENT. rr5 21:45 CT Head C Spine In Process Unspecified. EDMS 23:30 No provider procedures requiring assistance completed. IV discontinued, intact, rr5 bleeding controlled, No redness/swelling at site. Pressure dressing applied. Administered Medications: 21:20 Drug: NS 0.9% 1000 ml Route: IV; Rate: 1 bolus; Site: right forearm; rr5 22:25 Follow up: Response: No adverse reaction; IV Status: Completed infusion; IV Intake: rr5 1000ml 21:22 Drug: fentaNYL (PF) 25 mcg {Note: rass 0.} Route: IVP; Site: right forearm; rr5 22:20 Follow up: Response: No adverse reaction; Pain is decreased; RASS: Alert and Calm (0) rr5 22:38 Drug: TORadol - (ketorolac) 15 mg Route: IVP; Site: right forearm; rr5 23:20 Follow up: Response: No adverse reaction; Pain is decreased rr5 23:15 Drug: Ativan (LORazepam) 1 mg Route: IVP; Site: right forearm; rr5 23:25 Follow up: Response: No adverse reaction; Marked relief of symptoms rr5 Intake: 22:25 IV: 1000ml; Total: 1000ml. rr5 Outcome: 23:20 Discharged to home ambulatory. rr5 23:20 Condition: stable 23:20 Discharge instructions given to patient, Instructed on discharge instructions, follow up and referral plans. medication usage, Demonstrated understanding of instructions, follow-up care, medications, Prescriptions given X 1. 23:21 Discharge ordered by . robert 23:25 Patient left the ED. rr5 Signatures: Dispatcher [employer] EDMS Everardo Zabala PA PA cp Roque, Raymond, RN RN rr5
--- NOTE | 2020-07-16 23:21 | EDPHYS ---
Physician Documentation [facility] Name: Winter Hubbard Age: 50 yrs Sex: Female : 1970 Arrival Date: 07/16/2020 Time: 20:13 Bed 19 Private MD: ED Physician Bryce Rondon HPI: 07/16 20:20 This 50 yrs old Female presents to ER via EMS with complaints of Neck Pain, cp >24Hrs Old. 20:20 The patient or guardian complains of pain. cp 20:20 The symptoms are located at the cervical spine. Onset: The symptoms/episode cp began/occurred last night. Associated signs and symptoms: Pertinent positives: headache, lightheaded, near syncope, general weakness. 20:20 Patient reports having C6-C7 neck surgery 2-3 weeks ago w/o complications. Denies cp fever, denies shortness of breath, denies chest pain. 20:20 Severity of symptoms: in the emergency department the symptoms have improved, while en cp route with EMS. 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 - Social history:: Smoking status: Patient reports the use of cigarette tobacco products, smokes one pack cigarettes per day. ROS: 20:25 Constitutional: Negative for body aches, chills, fever, poor PO intake. cp 20:25 Eyes: Negative for injury, pain, redness, and discharge. cp 20:25 ENT: Negative for ear pain, sore throat, difficulty swallowing, difficulty handling secretions. 20:25 Neck: Positive for pain at rest. 20:25 Cardiovascular: Negative for chest pain, edema, palpitations. 20:25 Respiratory: Negative for cough, shortness of breath, wheezing. 20:25 Abdomen/GI: Negative for abdominal pain, nausea, vomiting, and diarrhea. 20:25 Back: Negative for pain at rest, pain with movement. 20:25 Neuro: Positive for headache, near syncope, weakness, lightheaded, Negative for altered mental status, numbness, syncope. Exam: 20:30 Constitutional: The patient appears in no acute distress, alert, awake, cp non-diaphoretic, non-toxic, well developed, well nourished. 20:30 Head/Face: Normocephalic, atraumatic. cp 20:30 Eyes: Periorbital structures: appear normal, Pupils: equal, round, and reactive to light and accomodation, Extraocular movements: intact throughout, Conjunctiva: normal, no exudate, no injection, Sclera: no appreciated abnormality, Lids and lashes: appear normal, bilaterally. 20:30 ENT: External ear(s): are unremarkable, Nose: is normal, Mouth: Lips: moist, Oral mucosa: moist, Posterior pharynx: Airway: no evidence of obstruction, patent. 20:30 Neck: C-spine: vertebral tenderness, is not appreciated, crepitus, is not appreciated, ROM/movement: Meningeal signs: are not present, nuchal rigidity, is not appreciated. 20:30 Chest/axilla: Inspection: normal. 20:30 Cardiovascular: Rate: normal, Rhythm: regular, Heart sounds: murmur, not appreciated, Edema: is not appreciated, JVD: is not appreciated. 20:30 Respiratory: the patient does not display signs of respiratory distress, Respirations: normal, no use of accessory muscles, no retractions, labored breathing, is not present, Breath sounds: are clear throughout, no decreased breath sounds. 20:30 Abdomen/GI: Inspection: abdomen appears normal, Palpation: abdomen is soft and non-tender, in all quadrants. 20:30 Back: pain, is absent, ROM is normal. 20:30 Skin: cellulitis, is not appreciated, no rash present. 20:30 Neuro: Orientation: to person, place \T\ time. Mentation: is normal, Cerebellar function: Romberg testing is negative, Motor: moves all fours, strength is normal, Sensation: no obvious gross deficits, Gait: is steady, at a normal pace, without difficulty. 21:34 ECG was reviewed by the Attending Physician. cp Vital Signs: 20:10 BP 123 / 73; Pulse 82; Resp 17; Temp 98.7; Pulse Ox 99% ; Weight 61.23 kg; Height 5 ft. rr5 1 in. (154.94 cm); 21:18 BP 133 / 73 Supine; Pulse 70; Resp 16; Pulse Ox 99% ; rr5 21:20 BP 135 / 81 Sitting; Pulse 71; Resp 18; Pulse Ox 98% ; rr5 21:22 BP 130 / 79 Standing; Pulse 76; Resp 15; Pulse Ox 100% ; rr5 22:00 BP 141 / 79; Pulse 73; Resp 15; Pulse Ox 98% ; rr5 22:30 BP 150 / 87; Pulse 70; Resp 19; Pulse Ox 98% ; rr5 23:00 BP 155 / 85; Pulse 79; Resp 17; Pulse Ox 100% ; rr5 20:10 Body Mass Index 25.51 (61.23 kg, 154.94 cm) rr5 MDM: 20:18 Patient medically screened. cp 21:00 Differential diagnosis: C-Spine Fracture Cervical Raiculopathy vertigo, spinal cp stenosis, abscess, cellulitis. 23:20 Data reviewed: vital signs, nurses notes, lab test result(s), EKG, radiologic studies, cp CT scan, plain films. 23:20 Test interpretation: by ED physician or midlevel provider: ECG, plain radiologic cp studies. 23:20 Counseling: I had a detailed discussion with the patient and/or guardian regarding: the cp historical points, exam findings, and any diagnostic results supporting the discharge/admit diagnosis, lab results, radiology results, to return to the emergency department if symptoms worsen or persist or if there are any questions or concerns that arise at home. Response to treatment: the patient's symptoms have markedly improved after treatment, and as a result, I will discharge patient. 07/16 20:33 Order name: Basic Metabolic Panel; Complete Time: 21:55 cp 07/16 21:55 Interpretation: Normal except: K 3.4; CL 112. cp 07/16 20:33 Order name: CBC with Diff; Complete Time: 21:55 cp / 20:33 Order name: LFT's; Complete Time: 21:55 cp / 20:33 Order name: Magnesium; Complete Time: 21:55 cp / 20:33 Order name: NT PRO-BNP; Complete Time: 21:55 cp /02 20:33 Order name: PT-INR; Complete Time: 21:55 cp / 20:33 Order name: Troponin (emerg Dept Use Only); Complete Time: 21:55 cp 07/16 20:33 Order name: XRAY Chest (1 view); Complete Time: 21:55 cp 02 22:33 Interpretation: Report review. cp 07/16 21:14 Order name: CT Head C Spine cp 07/16 23:23 Order name: Urine --Ancillary (enter results) tt3 07/16 23:23 Order name: Urine Dipstick-Ancillary EDMS 07/16 20:18 Order name: Orthostatics; Complete Time: 21:48 cp 02 20:33 Order name: EKG; Complete Time: 20:34 cp 07/16 20:33 Order name: Cardiac monitoring; Complete Time: 21:23 cp 07/16 20:33 Order name: EKG - Nurse/Tech; Complete Time: 21:48 cp 07/16 20:33 Order name: IV Saline Lock; Complete Time: 21:23 cp 07/16 20:33 Order name: Labs collected and sent; Complete Time: 21:23 cp 02 20:33 Order name: O2 Per Protocol; Complete Time: 21:23 cp 07/16 20:33 Order name: O2 Sat Monitoring; Complete Time: 21:23 cp 02 20:33 Order name: Urine Dipstick-Ancillary (obtain specimen); Complete Time: 23:25 cp /02 20:33 Order name: Urine Test (obtain specimen); Complete Time: 23:25 cp EC:34 Rate is 60 beats/min. Rhythm is regular. OK interval is normal. QRS interval is normal. cp QT interval is normal. T waves are Inverted in lead aVR. Interpreted by me. Reviewed by me. Administered Medications: 21:20 Drug: NS 0.9% 1000 ml Route: IV; Rate: 1 bolus; Site: right forearm; rr5 22:25 Follow up: Response: No adverse reaction; IV Status: Completed infusion; IV Intake: rr5 1000ml 21:22 Drug: fentaNYL (PF) 25 mcg {Note: rass 0.} Route: IVP; Site: right forearm; rr5 22:20 Follow up: Response: No adverse reaction; Pain is decreased; RASS: Alert and Calm (0) rr5 22:38 Drug: TORadol - (ketorolac) 15 mg Route: IVP; Site: right forearm; rr5 23:20 Follow up: Response: No adverse reaction; Pain is decreased rr5 23:15 Drug: Ativan (LORazepam) 1 mg Route: IVP; Site: right forearm; rr5 23:25 Follow up: Response: No adverse reaction; Marked relief of symptoms rr5 Disposition: 07/17 01:15 Co-signature as Attending Physician, Bryce Rondon MD. rn Disposition: 07/16/20 23:21 Discharged to Home. Impression: Headache, Anxiety disorder, unspecified. - Condition is Stable. - Discharge Instructions: Panic Attacks, General Headache Without Cause. - Prescriptions for Fiorinal 50- 325-40 mg Oral Capsule - take 1 capsule by ORAL route every 4 hours As needed - not to exceed 6 capsules per day; 20 capsule. - Medication Reconciliation Form, Thank You Letter, Antibiotic Education, Prescription Opioid Use form. - Follow up: Private Physician; When: 2 - 3 days; Reason: Recheck today's complaints. - Problem is new. - Symptoms have improved. Signatures: Dispatcher [employer] EDBryce Michele MD MD rn Page, Corey, PA PA cp Roque, Raymond, RN RN rr5 Corrections: (The following items were deleted from the chart) 07/16 23:25 23:21 07/16/2020 23:21 Discharged to Home. Impression: Headache; Anxiety disorder, rr5 unspecified. Condition is Stable. Forms are Medication Reconciliation Form, Thank You Letter, Antibiotic Education, Prescription Opioid Use. Follow up: Private Physician; When: 2 - 3 days; Reason: Recheck today's complaints. Problem is new. Symptoms have improved. cp
[2020-07-16 23:24] LABS: Urine Blood Trace-intact (Negative); Urine Glucose Negative (Negative); Urine Protein Negative (Negative); Urine Specific Gravity >=1.030 (1.005-1.030)
[2020-07-16 23:34] VITALS: TEMP 98.7
[2020-07-16 23:39] VITALS: BP 130/79; O2SAT 100
[2020-07-17 00:08] LABS: Urine Specific Gravity/Preg >1.030 (1.005-1.030)
--- NOTE | 2020-07-17 07:51 | EKG ---
Test Date: 2020-07-16 Test Time: 21:29:24 Ballet Professor: RR MEASUREMENT RESULTS: Intervals: Rate: 60 NV: 142 QRSD: 76 QT: 454 QTc: 454 [place]: P: 46 NV: 142 QRS: 79 T: 59 INTERPRETIVE STATEMENTS: Normal sinus rhythm Normal ECG Compared to ECG 04/17/2020 22:17:30 No significant changes Electronically Signed On 07-17-20 07:50:23 CDT by Mirza Ray
--- NOTE | 2020-07-17 11:02 | RAD REPORT ---
EXAM DESCRIPTION: CT - Head C Spine Mpr Wo Con - 07/17/2020 6:53 am CLINICAL HISTORY: PAIN. TECHNIQUE: Axial, coronal, and sagittal images through the brain were performed in the absence of in travenous contrast. CT of the cervical spine was performed without contrast. Axial, coronal, and sagittal reconstructions were created and sent to PACS. These exams were performed according to our departmental dose-optimization program which includes use of Automated Exposure Control, adjustment of the mA and/or kV according to patient size and/or use o f iterative reconstruction technique. COMPARISON: None. FINDINGS: CT Head: The brain parenchyma appears unremarkable. There is no intra-axial or extra-axial bleed seen. There i s no mass or mass effect. The ventricles are normal in size shape and configuration. The orbital cont ents appear unremarkable. Mucosal retention cyst in the anterior right maxillary sinus. The remaining visualized paranasal sinu ses and mastoid air cells are patent. No fracture is identified. CT cervical spine: No acute osseous abnormality identified. Discectomy at C6-7, with a disc spacer in place. Straighteni ng of the normal cervical lordosis. Vertebral body height and alignment are maintained. No atlantoden scott interval widening. Atlantoaxial alignment is maintained. C2-C3: Small posterior disc osteophyte complex. No significant central canal or neuroforaminal narrow ing. C3-C4: No significant central canal or neuroforaminal narrowing. C4-C5: Minimal left neuroforaminal narrowing due to uncinate hypertrophy. Tiny posterior disc osteoph yte complex. No significant central canal or right-sided neuroforaminal narrowing. C5-C6: Postsurgical level. No significant central canal or neuroforaminal narrowing. C6-C7: No significant central canal or neuroforaminal narrowing. Paraspinal soft tissues: Moderate centrilobular emphysema. IMPRESSION: 1. No acute intracranial abnormality identified. 2. No acute osseous abnormality identified in the cervical spine. Postsurgical and degenerative max nges as described. Electronically signed by: Tanesha Caro MD 07/16/2020 10:02 PM CDT Due to temporary technical issues with the PACS/Fluency reporting system, reports are being signed by the in house radiologist without review as a courtesy to ensure prompt reporting. The interpreting r adiologist is fully responsible for the content of the report.
== END 2020-07-16 23:25 | disposition home or self-care (01) ==
LOC: ER 20:01
DX: F41.9 Anxiety disorder, unspecified (principal); F17.210 Nicotine dependence, cigarettes, uncomplicated
CPT/HCPCS: 85025; 80048; 36415; 83735; 81025; 85610; 80076; 81003; 84484; 83880; 70450; 72125; 71045; J3010; J7030; 93005; 96361; 96374; 96375; 99284

== ENCOUNTER 2023-01-04 23:59 | Emergency (ER) | payer OTHER ==
[2023-01-05] MEDS ORDERED: methocarbamoL 750 MG TAB ONE (01:48)
[2023-01-05] MEDS ORDERED: DIAZEPAM 5 MG TABLET ONE (01:48)
--- NOTE | 2023-01-05 02:40 | ER ---
Nurse's Notes [facility] Name: Winter Hubbard Age: 52 yrs Sex: Female : 1970 Arrival Date: 01/04/2023 Time: 23:59 Bed 6 Private MD: Diagnosis: Contusion of other specified part of neck;Contusion of back wall of thorax;Acute injury to neck and upper back Presentation: 01/05 00:12 Chief complaint: Patient states: 4-5 days ago my moms dog peed in the floor and I vc1 slipped. I landed mid back. My C6 and C7 has been replaced. I'm have a headache. Coronavirus screen: Vaccine status: Patient reports being unvaccinated. Client denies travel out of the [place] in the last 14 days. At this time, the client does not indicate any symptoms associated with coronavirus-19. Ebola Screen: Patient negative for fever greater than or equal to 101.5 degrees Fahrenheit, and additional compatible Ebola Virus Disease symptoms Patient denies exposure to infectious person. Patient denies travel to an Ebola-affected area in the 21 days before illness onset. No symptoms or risks identified at this time. Risk Assessment: Do you want to hurt yourself or someone else? Patient reports no desire to harm self or others. Onset of symptoms was January 01, 2023. 00:12 Method Of Arrival: Ambulatory vc1 00:12 Acuity: AMALIA 4 vc1 01:30 Initial Sepsis Screen: Does the patient meet any 2 criteria? No. Patient's initial j7 sepsis screen is negative. Does the patient have a suspected source of infection? No. Patient's initial sepsis screen is negative. 01:30 Care prior to arrival: None. Mechanism of Injury: Fall from standing position. j7 Triage Assessment: 00:20 General: Appears in no apparent distress. uncomfortable, Behavior is calm, cooperative, vc1 appropriate for age. Pain: Complains of pain in thoracic area Pain currently is 0.5 out of 10 on a pain scale. Quality of pain is described as aching, dull, pressure. EENT: No deficits noted. No signs and/or symptoms were reported regarding the EENT system. Neuro: Reports headache. Cardiovascular: No deficits noted. Respiratory: Airway is patent Respiratory effort is even, unlabored, Respiratory pattern is regular, symmetrical. GI: No deficits noted. No signs and/or symptoms were reported involving the gastrointestinal system. : No deficits noted. No signs and/or symptoms were reported regarding the genitourinary system. Derm: No deficits noted. No signs and/or symptoms reported regarding the dermatologic system. Musculoskeletal: Reports tightness/pressure "feels like loss of muscle control". 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 - Social history:: Smoking status: Patient reports the use of cigarette tobacco products, smokes one pack cigarettes per day. - Family history:: not pertinent. Screenin:[facility] ED Fall Risk Assessment (Adult) History of falling in the last 3 months, jj7 including since admission Yes- single mechanical fall (1 pt) Confusion or Disorientation No (0 pts) Intoxicated or Sedated No (0 pts) Impaired Gait No (0 pts) Mobility Assist Device Used No (0 pt) Altered Elimination No (0 pt) Score/Fall Risk Level 0 - 2 = Low Risk Oriented to surroundings, Maintained a safe environment, Educated pt \\T\\ family on fall prevention, incl call for assistance when getting out of bed. Abuse screen: Denies injuries from another. Abuse screen: Denies threats or abuse. Nutritional screening: No deficits noted. Tuberculosis screening: No symptoms or risk factors identified. Primary Survey: 01:30 NO uncontrolled hemorrhage observed. A: The client is awake and alert. The airway is jj7 patent. The client is alert. Airway: patent. Breathing/Chest: Spontaneous respiratory effort, equal unlabored respirations, breath sounds clear bilaterally, regular pattern, symmetrical chest rise and fall. Respiratory effort: spontaneous, unlabored, Breath sounds: clear, bilaterally. Respiratory pattern: regular, Chest inspection: symmetrical rise and fall of the chest. Circulation: No external hemorrhage present. Regular and strong central pulse, skin warm/dry/normal color. Disability Client is alert. Exposure/Environment: There is no evidence of uncontrolled external bleeding. A warming method has been applied: A warm blanket has been provided to the patient. 02:30 Reassessment Breathing: Spontaneous respiratory effort, equal unlabored respirations, jj7 breath sounds clear bilaterally, regular pattern with symmetrical chest rise and fall. Respiratory effort Spontaneous Unlabored Circulation: No external hemorrhage noted. Regular and strong central pulse, skin warm/dry/normal color. Disability: Alert. Assessment: 01:30 Reassessment: SEE TRIAGE ASSESSMENT. jj7 02:30 Reassessment: Patient appears in no apparent distress at this time. No changes from [facility] previously documented assessment. Patient and/or family updated on plan of care and expected duration. Pain level reassessed. Patient is alert, oriented x 3, equal unlabored respirations, skin warm/dry/pink. 03:21 Reassessment: Patient appears in no apparent distress at this time. Patient and/or jw7 family updated on plan of care and expected duration. Pain level reassessed. Patient is alert, oriented x 3, equal unlabored respirations, skin warm/dry/pink. Patient states symptoms have improved. Vital Signs: 00:12 Weight 47.63 kg; Height 5 ft. 1 in. ; Pain 1/10; vc1 00:21 BP 153 / 97; Pulse 87; Resp 16; Temp 98.5; Pulse Ox 99% ; vc1 01:44 BP 118 / 67; Pulse 81; Resp 20; Pulse Ox 98% ; jj7 02:51 BP 105 / 77; Pulse 82; Resp 19; Pulse Ox 96% ; jj7 00:12 Body Mass Index 19.84 (47.63 kg, 154.94 cm) vc1 00:12 Pain Scale: Adult vc1 [place] Coma Score: 01:30 Eye Response: spontaneous(4). Motor Response: obeys commands(6). Verbal Response: jj7 oriented(5). Total: 15. Trauma Score (Adult): 01:30 Eye Response: spontaneous(1); Verbal Response: oriented(1); Motor Response: obeys jj7 commands(2); Systolic BP: > 89 mm Hg(4); Respiratory Rate: 10 to 29 per min(4); Davie Score: 15; Trauma Score: 12 ED Course: 00:09 Patient arrived in ED. gm2 00:18 Triage completed. vc1 00:20 Arm band placed on left wrist. vc1 00:26 Elian Ann MD is Attending Physician. sp4 01:30 Patient maintains SpO2 saturation greater than 95% on room air. jj7 01:30 Thermoregulation: warm blanket given to patient. jj7 01:34 Brain Dee RN is Primary Nurse. jj7 01:50 Patient has correct armband on for positive identification. Bed in low position. Call jj7 light in reach. Side rails up X2. 01:50 Warm blanket given. jj7 01:53 CT C Spine In Process Unspecified. EDMS 01:53 CT Thoracic Spine Wo Cont In Process Unspecified. EDMS 01:53 CT Lumbar Spine Wo Con In Process Unspecified. EDMS 01:53 Head Brain Wo Cont In Process Unspecified. EDMS 02:51 No provider procedures requiring assistance completed. Patient did not have IV access jj7 during this emergency room visit. 03:20 Provided Education on: discharge instructions. jw7 Administered Medications: 01:49 Drug: Methocarbamol PO 750 mg PO once Route: PO; jj7 03:04 Follow up: Response: Marked relief of symptoms jj7 01:49 Drug: Diazepam PO 5 mg PO once Route: PO; jj7 03:03 Follow up: Response: Marked relief of symptoms jj7 Medication: 02:51 VIS not applicable for this client. jj7 Intake: 01:30 PO: 0ml; Total: 0ml. jj7 Outcome: 01:30 Discharged to home ambulatory, jj7 02:39 Discharge ordered by . sp4 02:51 Condition: improved jj7 03:20 Discharge instructions given to patient, Instructed on discharge instructions, follow jw7 up and referral plans. medication usage, Demonstrated understanding of instructions, follow-up care, medications, Prescriptions given X 1, 03:22 Patient left the ED. jw7 Signatures: Dispatcher [employer] EDKS Gia Ontiveros RN RN vc1 Kyra Miller RN RN jw7 Johnson, Juwairiyah, Elian Langston RN, MD MD sp4 Sandra Gann gm2 Corrections: (The following items were deleted from the chart) 02:52 02:51 Provided Education on: jj7 jj7
--- NOTE | 2023-01-05 02:40 | EDPHYS ---
Physician Documentation [facility] Name: Winter Hubbard Age: 52 yrs Sex: Female : 1970 Arrival Date: 01/04/2023 Time: 23:59 Bed 6 Private MD: ED Physician Elian Ann HPI: 01/05 00:26 This 52 yrs old Female presents to ER via Ambulatory with complaints of Fall sp4 Injury. 02:29 52-year-old female with history of prior neck surgery C6-7 level, history of bipolar sp4 disorder hypothyroidism as well presents for acute fall 4 days ago with complaint of upper cervical and thoracic spinal discomfort.. Denied any paralysis or numbness. . 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 - Social history:: Smoking status: Patient reports the use of cigarette tobacco products, smokes one pack cigarettes per day. - Family history:: not pertinent. ROS: 02:29 Constitutional: Negative for fever, chills, and weight loss, sp4 02:29 Back: Positive for Positive for her neck and upper thoracic spinal discomfort, Negative for decreased range of motion, 02:37 All other systems are negative, sp4 Exam: 02:37 Constitutional: This is a well developed, well nourished patient who is awake, alert, sp4 and in no acute distress. Head/Face: Normocephalic, atraumatic. Eyes: Pupils equal round and reactive to light, extra-ocular motions intact. Lids and lashes normal. Conjunctiva and sclera are not injected. Cornea within normal limits. Periorbital areas with no swelling, redness, or edema. ENT: Nares patent. No nasal discharge, no septal abnormalities noted. Tympanic membranes are normal and external auditory canals are clear. Oropharynx with no redness, swelling, or masses, exudates, or evidence of obstruction, uvula midline. Mucous membranes moist. Neck: Trachea midline, no thyromegaly or masses palpated, and no cervical lymphadenopathy. Supple, full range of motion without nuchal rigidity, or vertebral point tenderness. Chest/axilla: Normal chest wall appearance and motion. Nontender with no deformity. No lesions are appreciated. Cardiovascular: Regular rate and rhythm with a normal S1 and S2. No gallops, murmurs, or rubs. Normal PMI, no JVD. No pulse deficits. Respiratory: Lungs have equal breath sounds bilaterally, clear to auscultation and percussion. No rales, rhonchi or wheezes noted. No increased work of breathing, no retractions or nasal flaring. Abdomen/GI: Soft, non-tender, with normal bowel sounds. No distension or tympany. No guarding or rebound. No evidence of tenderness throughout. Back: No spinal tenderness. No costovertebral tenderness. Skin: Warm, dry with normal turgor. Normal color with no rashes, no lesions, and no evidence of cellulitis. MS/ Extremity: Pulses equal, no cyanosis. Neurovascular intact. Full, normal range of motion. Neuro: Awake and alert, GCS 15, oriented to person, place, time, and situation. Cranial nerves II-XII grossly intact. Motor strength 5/5 in all extremities. Sensory grossly intact. Psych: Awake, alert, with orientation to person, place and time. Behavior, mood, and affect are within normal limits Vital Signs: 00:12 Weight 47.63 kg; Height 5 ft. 1 in. ; Pain /10; vc1 00:21 BP 153 / 97; Pulse 87; Resp 16; Temp 98.5; Pulse Ox 99% ; vc1 01:44 BP 118 / 67; Pulse 81; Resp 20; Pulse Ox 98% ; jj7 02:51 BP 105 / 77; Pulse 82; Resp 19; Pulse Ox 96% ; jj7 00:12 Body Mass Index 19.84 (47.63 kg, 154.94 cm) vc1 00:12 Pain Scale: Adult vc1 [place] Coma Score: 01:30 Eye Response: spontaneous(4). Motor Response: obeys commands(6). Verbal Response: jj7 oriented(5). Total: 15. Trauma Score (Adult): 01:30 Eye Response: spontaneous(1); Verbal Response: oriented(1); Motor Response: obeys jj7 commands(2); Systolic BP: > 89 mm Hg(4); Respiratory Rate: 10 to 29 per min(4); Davie Score: 15; Trauma Score: 12 MDM: 00:28 Patient medically screened. sp4 02:29 ED course: CT T spine --FINDINGS: Thoracic No fracture. No subluxation. Disc spaces are sp4 preserved. Paraspinal soft tissues are unremarkable. Lumbar No fracture. No subluxation. Disc spaces are preserved. Paraspinal soft tissues are unremarkable. Advanced chronic lung changes. No focal consolidation. Visualized abdomen demonstrates no acute abnormality. Diffuse osteopenia. Vascular calcifications. IMPRESSION: No fracture or subluxation. Advanced chronic lung changes. . ED course: CT head and C spine - IMPRESSION: 1. Straightening of the cervical lordosis. Findings may be positional or due to muscle spasm. 2. No acute intracranial abnormality. 3. No acute cervical spine fracture. 4. Prior C6-7 discectomy. 5. Anterolisthesis of C3 on C4 and C4 on C5 measuring 2 to 3 mm. 6. Advanced apical chronic lung changes. Electronically signed by: Zackary Juarez DO 01/05/2023 02:07 AM. 02:37 Differential diagnosis: abrasion, closed head injury, contusion, fracture, laceration, sp4 multiple trauma, sprain, strain. Data reviewed: vital signs, nurses notes, radiologic studies, CT scan. Consideration of Admission/Observation Escalation of care including admission/observation considered. ED course: CT revealed no acute emergent problems. No signs of spinal fractures. Patient stable for discharge home with p.o. as needed Robaxin. 01/05 00:54 Order name: CT C Spine sp4 01/05 00:55 Order name: CT Thoracic Spine Wo Cont sp4 01/05 00:55 Order name: CT Lumbar Spine Wo Con sp4 01/05 01:25 Order name: Head Brain Wo Cont EDMS Administered Medications: 01:49 Drug: Methocarbamol PO 750 mg PO once Route: PO; jj7 03:04 Follow up: Response: Marked relief of symptoms jj7 01:49 Drug: Diazepam PO 5 mg PO once Route: PO; jj7 03:03 Follow up: Response: Marked relief of symptoms jj7 Disposition Summary: 01/05/23 02:39 Discharge Ordered Notes: Location: Home sp4 Problem: new sp4 Symptoms: have improved sp4 Condition: Stable sp4 Diagnosis - Contusion of other specified part of neck sp4 - Contusion of back wall of thorax sp4 - Acute injury to neck and upper back sp4 Followup: sp4 - With: Private Physician - When: 7 - 10 days - Reason: Recheck today's complaints Discharge Instructions: - Discharge Summary Sheet sp4 - Neck Contusion, [id number] sp4 Forms: - Patient Portal Instructions sp4 Prescriptions: - methocarbamol 750 mg Oral tablet - take 1 tablet ORAL route every 6 hours for 3 days PRN muscle soreness; 30 sp4 tablet; Refills: 0, Product Selection Permitted Signatures: Dispatcher [employer] EDMS Gia Ontiveros RN RN vc1 Brain Dee RN RN jj7 Elian Ann MD MD sp4
[2023-01-05 03:44] VITALS: TEMP 98.5
[2023-01-05 03:47] VITALS: BP 105/77; O2SAT 96
--- NOTE | 2023-01-07 12:36 | RAD REPORT ---
EXAM DESCRIPTION: CT - Spine Lumbar Wo Con - 01/05/2023 6:33 am CLINICAL HISTORY: 52 years Female fall , acute pain COMPARISON: MRI thoracic spine dated 05/14/2020 TECHNIQUE: Multiplanar imaging through the thoracic and lumbar spine without contrast. This exam w as performed according to our departmental dose-optimization program, which includes automated exposu re control, adjustment of the mA and/or kV according to patient size and/or use of iterative reconstr uction technique. DLP: 1623 mGy*cm FINDINGS: Thoracic No fracture. No subluxation. Disc spaces are preserved. Paraspinal soft tissues are unremarkable. Lumbar No fracture. No subluxation. Disc spaces are preserved. Paraspinal soft tissues are unremarkable. Advanced chronic lung changes. No focal consolidation. Visualized abdomen demonstrates no acute abnormality. Diffuse osteopenia. Vascular calcifications. IMPRESSION: No fracture or subluxation. Advanced chronic lung changes. Electronically signed by: Zackary Juarez DO 01/05/2023 02:09 AM FRONT DESK ADMINISTRATOR Due to temporary technical issues with the PACS/Fluency reporting system, reports are being signed by the in house radiologists without review as a courtesy to insure prompt reporting. The interpreting radiologist is fully responsible for the content of the report.
--- NOTE | 2023-01-07 12:41 | RAD REPORT ---
EXAM DESCRIPTION: CT - C Spine Wo Onel - 01/05/2023 6:33 am CLINICAL HISTORY: The patient is 52 years old and is Female; PAIN TECHNIQUE: Axial computed tomography images of the head/brain and cervical spine without intravenous contrast. Sagittal and coronal reformatted images were created and reviewed. This CT exam was pe rformed using one or more of the following dose reduction techniques: automated exposure control, a djustment of the mA and/or kV according to patient size, and/or use of iterative reconstruction techn ique. DLP: 1623 mGy*cm COMPARISON: CT head and cervical spine dated 07/16/2020. FINDINGS: BRAIN: Unremarkable. No hemorrhage. No significant white matter disease. No edema. VENTRICLES: Unremarkable. No ventriculomegaly. SKULL: No acute fracture. SINUSES: Unremarkable as visualized. No acute sinusitis. MASTOID AIR CELLS: Unremarkable as visualized. No mastoid effusion. VERTEBRAE: Straightening of the cervical lordosis. Anterolisthesis of C3 on C4 and C4 on C5 measuring 2 to 3 mm. No acute fracture. DISCS/SPINAL CANAL/NEURAL FORAMINA: Prior C6-7 discectomy. No spinal canal stenosis. SOFT TISSUES: Unremarkable. LUNG APICES: Advanced apical chronic lung changes. IMPRESSION: 1. Straightening of the cervical lordosis. Findings may be positional or due to musc le spasm. 2. No acute intracranial abnormality. 3. No acute cervical spine fracture. 4. Prior C6-7 discectomy. 5. Anterolisthesis of C3 on C4 and C4 on C5 measuring 2 to 3 mm. 6. Advanced apical chronic lung changes. Electronically signed by: Zackary Juarez DO 01/05/2023 02:07 AM CULINARY ARTIST Due to temporary technical issues with the PACS/Fluency reporting system, reports are being signed by the in house radiologists without review as a courtesy to insure prompt reporting. The interpreting radiologist is fully responsible for the content of the report.
--- NOTE | 2023-01-07 13:14 | RAD REPORT ---
EXAM DESCRIPTION: CT - Thoracic Spine W/o Cont - 01/05/2023 6:34 am CLINICAL HISTORY: 52 years Female fall , acute pain COMPARISON: MRI thoracic spine dated 05/14/2020 TECHNIQUE: Multiplanar imaging through the thoracic and lumbar spine without contrast. This exam w as performed according to our departmental dose-optimization program, which includes automated exposu re control, adjustment of the mA and/or kV according to patient size and/or use of iterative reconstr uction technique. DLP: 1623 mGy*cm FINDINGS: Thoracic No fracture. No subluxation. Disc spaces are preserved. Paraspinal soft tissues are unremarkable. Lumbar No fracture. No subluxation. Disc spaces are preserved. Paraspinal soft tissues are unremarkable. Advanced chronic lung changes. No focal consolidation. Visualized abdomen demonstrates no acute abnormality. Diffuse osteopenia. Vascular calcifications. IMPRESSION: No fracture or subluxation. Advanced chronic lung changes. Electronically signed by: Zackary Juarez DO 01/05/2023 02:09 AM LEAD MATERIAL HANDLER Due to temporary technical issues with the PACS/Fluency reporting system, reports are being signed by the in house radiologist without review as a courtesy to ensure prompt reporting. The interpreting r adiologist is fully responsible for the content of the report.
--- NOTE | 2023-01-07 13:28 | RAD REPORT ---
EXAM DESCRIPTION: CT - Head Brain Wo Cont - 01/05/2023 6:33 am CLINICAL HISTORY: The patient is 52 years old and is Female; PAIN TECHNIQUE: Axial computed tomography images of the head/brain and cervical spine without intravenous contrast. Sagittal and coronal reformatted images were created and reviewed. This CT exam was pe rformed using one or more of the following dose reduction techniques: automated exposure control, a djustment of the mA and/or kV according to patient size, and/or use of iterative reconstruction techn ique. DLP: 1623 mGy*cm COMPARISON: CT head and cervical spine dated 07/16/2020. FINDINGS: BRAIN: Unremarkable. No hemorrhage. No significant white matter disease. No edema. VENTRICLES: Unremarkable. No ventriculomegaly. SKULL: No acute fracture. SINUSES: Unremarkable as visualized. No acute sinusitis. MASTOID AIR CELLS: Unremarkable as visualized. No mastoid effusion. VERTEBRAE: Straightening of the cervical lordosis. Anterolisthesis of C3 on C4 and C4 on C5 measuring 2 to 3 mm. No acute fracture. DISCS/SPINAL CANAL/NEURAL FORAMINA: Prior C6-7 discectomy. No spinal canal stenosis. SOFT TISSUES: Unremarkable. LUNG APICES: Advanced apical chronic lung changes. IMPRESSION: 1. Straightening of the cervical lordosis. Findings may be positional or due to musc le spasm. 2. No acute intracranial abnormality. 3. No acute cervical spine fracture. 4. Prior C6-7 discectomy. 5. Anterolisthesis of C3 on C4 and C4 on C5 measuring 2 to 3 mm. 6. Advanced apical chronic lung changes. Electronically signed by: Zackary Juarez DO 01/05/2023 02:07 AM EMPLOYEE COMMUNICATIONS SPECIALIST Due to temporary technical issues with the PACS/Fluency reporting system, reports are being signed by the in house radiologists without review as a courtesy to insure prompt reporting. The interpreting radiologist is fully responsible for the content of the report.
== END 2023-01-05 03:22 | disposition home or self-care (01) ==
LOC: ER 23:59
DX: S10.83XA Contusion of other specified part of neck, initial encounter (principal); S20.229A Contusion of unspecified back wall of thorax, initial encounter; F17.210 Nicotine dependence, cigarettes, uncomplicated
CPT/HCPCS: 70450; 72125; 72128; 72131; 99285

== ENCOUNTER 2023-01-15 01:12 | Emergency (ER) | payer OTHER ==
--- OUTSIDE RECORDS SUMMARY | 2023-01-15 01:15 | XMS REPORT | Continuity of Care Document ---
:1970 Author Organization [facility] t Address [address] [place] [address] [place] [address] Care Team Providers Name Role Phone Da SilvaCasey Saul Primary Care Physician LORAINE CARTAGENA Attending Clinician Unavailable Loraine Cartagena DO Attending Clinician Pob, [facility] Lab Main Attending Clinician Unavailable Patricio Frances MD Attending Clinician PATRICIO FRANCES Attending Clinician Unavailable Doctor Unassigned, [place] Attending Clinician Unavailable PRATEEK ARELLANO Attending Clinician Unavailable MD PRATEEK ARELLANO Attending Clinician Unavailable Pob1, Acute [facility] Attending Clinician Unavailable PRATEEK ARELLANO Admitting Clinician Unavailable MD PRATEEK ARELLANO Admitting Clinician Unavailable Payers Payer Name Policy Type Policy Number Effective Date Expiration Date S julio c MEDICARE PART A [id number] 2004 \\T\\ B 00:00:00 Problems Condition Condition Condition Status Onset Resolution Last Treating Co mments Source Name Details Category Date Date Treatment Clinician Date Fixation 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-14 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 00:00: Hospit a 00 l Cervical Cervical Disease Active [facility] di spondylosi spondylosi 5-13 st s with s with 00:00: Hospita myelopathy myelopathy 00 l and and radiculopa radiculopa thy thy HNP HNP Disease Active [facility] (herniated (herniated 5-13 st nucleus nucleus 00:00: Hospita pulposus) pulposus) 00 l with with myelopathy myelopathy , cervical , cervical Tobacco Tobacco Disease Active [facility] abuse abuse 5-13 st disorder disorder 00:00: Hospit a 00 l History of History of Disease Active M ethodi substance substance 5-13 st abuse abuse 00:00: Hospita 00 l Allergies, Adverse Reactions, Alerts Allergy Allergy Status Severity Reaction(s) Onset Inactive Treating Comm ents Source Name Type Date Date Clinician NO KNOWN Drug Active Univers ALLERGIE Class ity of S [facility] Family History Family Member Diagnosis Comments Start Date Stop Date Source Paternal grandmother Cancer [facility] Natural sister Mental illness [facility] Natural sister Seizures Natural father Hepatitis Natural father Mental illness [facility] Natural father Seizures Natural father Ulcers Maternal grandmother Cancer [facility] Natural mother Arthritis Natural mother Diverticulitis [facility] Natural mother Mental illness [facility] Social History Social Habit Start Date Stop Date Quantity Comments Source Gender identity Universit y of [facility] History of tobacco Smokes tobacco Me thodist use daily Hospital Sexual orientation [facility] Alcohol intake 2020-07-03 2020-07-03 Current drinker [facility] dist 00:00:00 00:00:00 of alcohol Hospital (finding) History of Social 2020-07-03 2020-07-[address] function 00:00:00 00:00:00 [facility] Cigarettes smoked 2020-06-25 2020-06-[address] current (pack per 00:00:00 00:00:00 Hospita l day) - Reported Cigarette 2020-06-25 2020-06-25 [facility] pack-years 00:00:00 00:00:00 Hospital Alcohol Comment 2020-06-25 2020-06-25 on occasions or [facility] Tobacco use and 2017-12-15 2017-12-15 Smokeless Universit y of exposure 00:00:00 00:00:00 tobacco non-user [facility] Sex Assigned At [birth year] [facility] 00:00:00 00:00:00 Hospital Smoking Status Start Date Stop Date Source Smokes tobacco daily 2020-06-25 00:00:00 [facility] Smoker 2017-12-15 00:00:00 [facility] Medications Ordered Filled Start Stop Current Ordering Indication Dosage Frequency Signature Comments Components Source Medication Medication Date Date Medication? Clinician (SIG) Name Name amoxicillin 2023- No [id number] 875mg Take 1 Univers 875 mg 8-10 08-18 tablet by ity of tablet 00:00: 04:59 mouth in [place] 00 :00 the Medical morning Branch and 1 tablet in the evening. Do all this for 7 days. bupropion Yes 450mg QD Take 450 Met hodi HCl 5-[address] (WELLBUTRIN 18:21: mouth Hospi ta ORAL) 24 daily. l CARBAMAZEPI Yes 200mg QD Take 200 M ethodi NE ORAL 5-[address] 18:21: mouth Hospita 24 every l evening. Dose unknown risperidone Yes 1mg QD Take 1 mg M ethodi (RISPERDAL 5-[address] ORAL) 18:21: nightly. Hospita 24 l LORAZepam Yes 1mg Q.5D Take 1 mg Met hodi (ATIVAN) 1 5-[address] MG tablet 18:21: (two) Hospita 24 times a l day as needed for anxiety. solifenacin Yes 10mg QD Take 10 mg Method[facility] (VESICARE) 5-[address] 10 MG 18:21: daily. Hospita tablet 24 l levothyroxi Yes 75ug QD Take 75 Met hodi ne 5-[address] (SYNTHROID) 18:21: mouth Hospi ta 75 mcg 24 daily. l tablet LORazepam Yes [id number] 1mg Take 1 Univers mg tablet 4-21 tablet by ity o f 00:00: mouth as [place] 00 needed for Medical Anxiety or Branch Agitation. LORazepam Yes [id number] 1mg Take 1 Univers mg tablet 4-21 tablet by ity o f 00:00: mouth as [place] 00 needed for Medical Anxiety or Branch Agitation. LORazepam Yes [id number] 1mg Take 1 Univers mg tablet 4-21 tablet by ity o f 00:00: mouth as [place] 00 needed for Medical Anxiety or Branch Agitation. LORazepam Yes [id number] 1mg Take 1 Univers mg tablet 4-21 tablet by ity o f 00:00: mouth as [place] 00 needed for Medical Anxiety or Branch Agitation. buPROPion Yes [id number] 150mg Take 1 U nivers XL 3-20 tablet by ity of (WELLBUTRIN 00:00: mouth [place] XL) 150 mg 00 daily. Medical 24 hr Branch tablet risperiDONE Yes [id number] 1mg Take 1 Univers 1 mg tablet 3-20 tablet by ity of 00:00: mouth [place] 00 daily. Medical Branch buPROPion Yes [id number] 300mg Take 1 U nivers XL 300 mg 3-20 tablet by ity o f 24 hr 00:00: mouth [place] tablet 00 daily. Medical Branch buPROPion Yes [id number] 150mg Take 1 U nivers XL 3-20 tablet by ity of (WELLBUTRIN 00:00: mouth [place] XL) 150 mg 00 daily. Medical 24 hr Branch tablet risperiDONE Yes [id number] 1mg Take 1 Univers 1 mg tablet 3-20 tablet by ity of 00:00: mouth [place] 00 daily. Medical Branch buPROPion Yes [id number] 300mg Take 1 U nivers XL 300 mg 3-20 tablet by ity o f 24 hr 00:00: mouth [place] tablet 00 daily. Medical Branch buPROPion Yes [id number] 150mg Take 1 U nivers XL 3-20 tablet by ity of (WELLBUTRIN 00:00: mouth [place] XL) 150 mg 00 daily. Medical 24 hr Branch tablet risperiDONE Yes [id number] 1mg Take 1 Univers 1 mg tablet 3-20 tablet by ity of 00:00: mouth [place] 00 daily. Medical Branch buPROPion Yes [id number] 300mg Take 1 Univers XL 300 mg 3-20 tablet by ity o f 24 hr 00:00: mouth [place] tablet 00 daily. Medical Branch buPROPion Yes [id number] 150mg Take 1 Univers XL 3-20 tablet by ity of (WELLBUTRIN 00:00: mouth [place] XL) 150 mg 00 daily. Medical 24 hr Branch tablet risperiDONE Yes [id number] 1mg Take 1 Univers 1 mg tablet 3-20 tablet by ity of 00:00: mouth [place] 00 daily. Medical Branch buPROPion Yes [id number] 300mg Take 1 U nivers XL 300 mg 3-20 tablet by ity o f 24 hr 00:00: mouth [place] tablet 00 daily. Medical Branch VESICARE 10 2017-02 Yes 10mg Take 10 mg Univers mg tablet 0-09 by mouth ity of 00:00: daily. Medical Branch carBAMazepi 2017-02 Yes 200mg Take 200 U nivers ne 200 mg 0-09 mg by ity of tablet 00:00: mouth [place] 00 daily. Medical Branch VESICARE 10 2017-02 Yes 10mg Take 10 mg Univers mg tablet 0-09 by mouth ity of 00:00: daily. Medical Branch carBAMazepi 2017-02 Yes 200mg Take 200 U nivers ne 200 mg 0-09 mg by ity of tablet 00:00: mouth [place] 00 daily. Medical Branch VESICARE 10 2017-02 Yes 10mg Take 10 mg Univers mg tablet 0-09 by mouth ity of 00:00: daily. Medical Branch carBAMazepi 2017-02 Yes 200mg Take 200 U nivers ne 200 mg 0-09 mg by ity of tablet 00:00: mouth [place] 00 daily. Medical Branch VESICARE 10 2017-02 Yes 10mg Take 10 mg Univers mg tablet 0-09 by mouth ity of 00:00: daily. Medical Branch carBAMazepi 2017-02 Yes 200mg Take 200 U nivers ne 200 mg 0-09 mg by ity of tablet 00:00: mouth [place] 00 daily. Medical Branch levothyroxi Yes 50ug Take 50 Uni vers ne 50 mcg 8-10 mcg by ity of tablet 00:00: mouth [place] 00 every Medical morning. Branch levothyroxi Yes 50ug Take 50 Uni vers ne 50 mcg 8-10 mcg by ity of tablet 00:00: mouth [place] 00 every Medical morning. Branch levothyroxi Yes 50ug Take 50 Uni vers ne 50 mcg 8-10 mcg by ity of tablet 00:00: mouth [place] 00 every Medical morning. Branch levothyroxi Yes 50ug Take 50 Uni vers ne 50 mcg 8-10 mcg by ity of tablet 00:00: mouth [place] 00 every Medical morning. Branch Vital Signs Vital Name Observation Time Observation Value Comments Source Systolic blood 2022-09-23 20:52:00 154 mm[Hg] Univer sity of pressure [facility] Diastolic blood 2022-09-23 20:52:00 79 mm[Hg] Unive rsity of pressure [facility] Heart rate 2022-09-23 20:52:00 84 /min [facility] Body temperature 2022-09-23 20:52:00 36.94 Odette [facility] Respiratory rate 2022-09-23 20:52:00 16 /min [facility] Body height 2022-09-23 20:52:00 154.9 cm [facility] Body weight 2022-09-23 20:52:00 49.896 kg [facility] BMI 2022-09-23 20:52:00 20.78 kg/m2 [facility] Oxygen saturation in 2022-09-23 20:52:00 97 /min [facility] Arterial blood by [facility] Pulse oximetry Branch Procedures Procedure Date / Time Performed Performing Clinician [facility] e ASSIGNMENT OF BENEFITS 2022-09-23 21:05:44 Doctor Unassigned, No [facility] NOTICE OF PRIVACY 2022-09-23 20:50:25 Doctor Unassigned, No Univ [facility] PRACTICES [facility] CONSENT/REFUSAL FOR 2022-09-23 20:49:46 Doctor [facility]assigned, No [facility] Medical [place] TREATMENT PHYSICIAN ORDERS 2022-06-19 05:01:00 Doctor Unassigned, No Unive [facility] Plan of Care Planned Activity Planned Date Details Comments Source Future Scheduled 2022-12-11 Screening [facility] Test 20:43:28 malignant neoplasm of colon (procedure) [code = 783059411] Future Scheduled 2022-12-11 [facility] Test 20:43:28 malignant neoplasm of colon (procedure) [code = 790320170] Future Scheduled 2022-12-11 [facility] Test 20:43:28 malignant neoplasm of colon (procedure) [code = 928630126] Future Scheduled 2022-12-11 COVID-19 VACCINE (#1) [facility] Test 20:43:28 [code = COVID-19 VACCINE (#1)] Future Scheduled 2022-12-11 Pneumococcal Vaccine: [facility] Test 20:43:28 Pediatrics (0 to 5 Years) and At-Risk Patients (6 to 64 Years) (1 - PCV) [code = Pneumococcal Vaccine: Pediatrics (0 to 5 Years) and At-Risk Patients (6 to 64 Years) (1 - PCV)] Future Scheduled 2022-12-11 Hepatitis C screening [facility] Test 20:43:28 (procedure) [code = 670062445] Future Scheduled 2022-12-11 Screening for Test 20:43:28 malignant neoplasm of cervix (procedure) [code = 349666417] Future Scheduled 2022-12-11 BREAST CANCER Test 20:43:28 SCREENING [code = BREAST CANCER SCREENING] Future Scheduled 2022-12-11 Screening for Test 20:43:28 malignant neoplasm of colon (procedure) [code = 858869736] Future Scheduled 2022-12-11 Screening for Test 20:43:28 malignant neoplasm of colon (procedure) [code = 759149167] Future Scheduled 2022-12-11 SHINGLES VACCINES (1 Met [facility] Test 20:43:28 of 2) [code = SHINGLES VACCINES (1 of 2)] Future Scheduled 2022-12-11 INFLUENZA VACCINE (#1) [facility] Test 20:43:28 [code = INFLUENZA VACCINE (#1)] Encounters Start End Encounter Admission Attending Care Care Encounter Source Date/Time Date/Time Type Type Clinicians Facility Department ID 2022-09-23 2022-09-23 Emergency X [facility] ERT [id number] Univers 15:55:00 16:23:00 LORAINE galvin [facility] 2022-09-23 2022-09-23 Emergency Mitzi [facility] [id number] Univers 15:55:00 16:23:00 Loraine KUHN 350.1.13.10 kamar [facility] 4.2.7.2.686 [facility] [id number] [address] 2022-06-19 2022-06-19 Hand Lacer Jeanette Guillory Lab Main [facility] 1.2.8 40.114 [id number] Univers 11:45:00 12:00:00 Visit Patricio Frances 350.1.13.10 ity of [facility] 4[place]2.[place].2.686 [place] PROF[place] [phone] Ar dical [address] 2022-06-19 2022-06-19 Outpatient R YVROSE, [facility] [id number] [facility] 11:45:00 11:45:00 PATRICIO ity [facility] 2022-06-19 2022-06-19 Orders Doctor MCCULLOUGH [id number] [id number] [facility] 00:00:00 00:00:00 Only Unassigned, DEEPAK 350.1.13.10 ity of [facility] 4.2.7.2.686 Lucian as [id number] [address] 2020-07-28 2020-07-28 Outpatient ARELLANO, [facility] [id number] [place] 00:00:00 00:00:00 PRATEEK 270 Method i 2020-07-28 2020-07-28 Outpatient ARELLANO, [facility] [id number] [place] 00:00:00 00:00:00 PRATEEK 440 Method i 2020-07-02 2020-07-02 Outpatient ARELLANO, [place] [address] [id number] [place] 00:00:00 00:00:00 PRATEEK 723 Method i 2020-07-01 2020-07-01 Outpatient ARELLANO, [facility] [id number] [place] 00:00:00 00:00:00 PRATEEK 533 Method i 2020-06-26 2020-06-26 Outpatient ARELLANO, [facility] [id number] [place] 00:00:00 00:00:00 PRATEEK [address] 2020-06-26 2020-06-26 Outpatient ARELLANO, [facility] [id number] [place] 00:00:00 00:00:00 PRATEEK [address] 2020-06-26 2020-06-26 Outpatient ARELLANO, [facility] [id number] [place] 00:00:00 00:00:00 PRATEEK [address] 2020-06-26 2020-06-26 Outpatient ARELLANO, [facility] [id number] [place] 00:00:00 00:00:00 PRATEEK [address] 2020-06-26 2020-06-26 Outpatient DOVER, [facility] [id number] [place] 00:00:00 00:00:00 PRATEEK [address] 2020-06-26 2020-06-26 Outpatient ARELLANO, [facility] [id number] [place] 00:00:00 00:00:00 PRATEEK [address] 2019-05-09 2019-05-09 Telephone Pob1, Acute [facility] 1.2.840.114 [id number] 00:00:00 00:00:00 [facility] 350.1.13.10 [place] 4.2.7.2.686 Professio [phone] nal [address] 2019-05-09 2019-05-09 Telephone Pob1, Acute [facility] 1.2.840.114 [id number] [facility] 00:00:00 00:00:00 [facility] 350.1.13.10 ity of [place] 4.2.7.2.686 Lucian as Professio [phone] Ar dical nal [address] [place] [address] Results Test Description Test Time Test Comments Results Result Comments Source SARS-CoV-2 (COVID-19) RNA [Presence] in Respiratory sp ecimen by 2020-07-01 18:09:13 TRAY with probe detection Test Item Value Reference Range Interpretation Comme nts SARS-CoV-2 (COVID-19) RNA [Presence] in Respiratory Not detected No t-Detected specimen by TRAY with probe detection (test code = 24328-3) Whether patient is employed in a healthcare setting (test code = 01223-1) Whether the patient has symptoms related to condition of interest (test code = 53379-8) Patient was hospitalized because of this condition (test code = 71945-5) Whether the patient was admitted to intensive care unit (ICU) for condition of interest (test code = 63765-4) Whether patient resides in a congregate care setting (test code = 35777-7) RIMA WHEELER Notes Date/Time Note Provider Source 2022-09-23 16:22:06 [id number]:22:06Formatting of [facility] this note might be different from the original.Pt discharged home following erp eval. Given all education and information regarding prescriptions; pain management and follow up specialty importance. Pt verbalized understanding. Ambulatory to pov with family. 96648-9Rbakodkzk department SxwiZP8064-87-97R07:23:24[facility] [id number] .2.274393|[id number] for patient shfm76819-3KudxDONJMHKIKS[address]TXTX[address] 43KXFOYCIREFLSHCTQVPIMWZ5689-93-62 T16:23:241.2.840.630146.1.72.3.15| 1.2.840.228366.1.13.104.2.7.2.7278 [id number] 2022-09-23 15:51:21 0784-00-08X27:51:21Formatting of Jone dykes RN [facility] this note might be different from the original.Pt to ed via pov. Alert and ambulatory. Vss. 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 0/10 pain in triage. 80898-3Kmpeeneep department Triage lupgPR3815-96-09T84:53:36[facility] Triage [id number] .2.857509|[id number] for patient yany00141-8Rtcdixyei department [id number] A Paul RN[id number] 29TSFOAITYKMVENQUNHPUNOG7011-26-91 T15:53:361.2.840.678510.1.72.3.15| 1.2.840.531261.1.13.104.2.7.2.7278 [id number] 2022-09-23 15:49:00 1659-86-90H97:49:00Formatting of [facility] Health this note is different from the original.Images from the original note were not included.[facility] Emergency Department NotePatient Name: Winter Dai of : 1970 52 year old femaleTreatment Room: [facility] ED [facility] Record Number: [id number] Care Physician: Casey Hughes BarrPatient Escorted by: Family [5]Mode of Arrival: Personal means [1]EMS Treatment Prior to ED Arrival: Travel and Exposure Screening:SymptomsDoes patient have any of these symptoms?: (not recorded)Exposure ScreeningHas patient had contact with someone with a communicable disease in the last month?: (not recorded)Diseases exposed to:: (not recorded)Is Patient ?: (not recorded)Exposure Date: (not recorded)Chief Complaint:Chief Complaint Patient presents with Tooth Pain History of Present Illness:The patient presents from home for evaluation for pain to her left upper tooth for the past 2 or 3 days. She denies any injury or trauma. No fevers or chills. She is been using oregano oil as well as clove oil to help with her pain and currently has no pain. She has not seen a dentist in a while. She does smoke cigarettes. No history of diabetes.Here for evaluation.Past Medical History/Immunizations:History reviewed. No pertinent past medical history.Tetanus received in last 5 years: UnknownChildhood immunizations: Up-to-date Allergies:No Known AllergiesPast Social History:Tobacco Use Smoker, Current Status Unknown; 1 pack/day for 35.00 years; Types: Cigarettes Smokeless Tobacco: Never used smokeless tobacco. Past Surgical History:History reviewed. No pertinent surgical history.Review of Systems: Review of Systems Constitutional: Negative for chills and fever. HENT: Positive for dental problem. Respiratory: Negative for cough. Cardiovascular: Negative for chest pain. Gastrointestinal: Negative for abdominal pain. Genitourinary: Negative for dysuria. Musculoskeletal: Negative for arthralgias, neck pain and neck stiffness. Neurological: Negative for dizziness. Psychiatric/Behavioral: Negative for agitation. Hematological: Positive for adenopathy. Physical Exam: ED Triage Vitals [09/23/22 1552] Weight 49.9 kg (110 lb) Actual or estimated Actual Height 1.549 m (5' 1") BP (!) 154/79 Pulse 84 Resp 16 Temp 36.9 ?C (98.5 ?F) Temp source Oral SpO2 97 % Measured on Room air Physical ExamVitals and nursing note reviewed. Constitutional: Appearance: Normal appearance. She is normal weight. HENT: Head: Normocephalic and atraumatic. Nose: Nose normal. Mouth/Throat: Dentition: Abnormal dentition. Dental caries present. Pharynx: Uvula midline. Pulmonary: Effort: Pulmonary effort is normal. Abdominal: General: There is no distension. Musculoskeletal: General: Normal range of motion. Cervical back: Normal range of motion and neck supple. Skin: General: Skin is warm and dry. Neurological: General: No focal deficit present. Mental Status: She is alert. Radiology:No orders to display Lab Results:Lab Results - No data to displayEKG:If EKG completed, see Procedure Note. Orders and Treatments:No orders of the defined types were placed in this encounter.Orders Placed This Encounter Medications amoxicillin 875 mg tablet First Provider Eval:ED Events Date/Time Event User Comments 09/23/221548 Medical Screening Begins LORAINE CARTAGENA DO -- 09/23/221548 First Provider Evaluation LORAINE CARTAGENA DO -- No notes of EC Admission Criteria type on file.ED COURSEDiagnosis/Impression as of 09/23/22 1606 Pain, dental Procedures: ProceduresMDM:Medical Decision MakingThe patient presents from home for evaluation for pain to her left upper tooth for the past 2 to 3 days. She denies any injury or trauma. No fevers or chills. No history of diabetes. She does smoke cigarettes. She has been using clove oil as well as oregano oil with help of her pain at home.Vital signs are stable here in the ER.She has poor dentition throughout.Her left upper first molar has tenderness with percussion as well as a chip that is missing.Will treat for dental infection.Recommend she stop smoking and follow-up with a dentist within 1 week.She remained stable here in ER and is okay for discharge home with PCP follow-up.Problems Addressed:Pain, dental: acute illness or injuryRiskPrescription drug management. Flowsheet Documentation: Scoring Tools: No data recorded Disposition/Condition:ED Disposition ED Disposition Disch - Home Condition Stable Comment -- Discharge Medications:Patient's Medications START taking these medications AMOXICILLIN 875 MG TABLET Take 1 tablet by mouth in the morning and 1 tablet in the evening. Do all this for 7 days. CONTINUE taking these medications which have NOT CHANGED BUPROPION XL (WELLBUTRIN XL) 150 MG 24 HR TABLET Take 1 tablet by mouth daily. BUPROPION XL 300 MG 24 HR TABLET Take 1 tablet by mouth daily. CARBAMAZEPINE 200 MG TABLET Take 200 mg by mouth daily. LEVOTHYROXINE 50 MCG TABLET Take 50 mcg by mouth every morning. LORAZEPAM 1 MG TABLET Take 1 tablet by mouth as needed for Anxiety or Agitation. RISPERIDONE 1 MG TABLET Take 1 tablet by mouth daily. VESICARE 10 MG TABLET Take 10 mg by mouth daily. START taking Modified Medications as Prescribed No medications on file STOP taking these medications No medications on file Follow-up:Electronically signed by: Loraine Cartagena DO09/23/22 1606 05354-7Mflhoxgsr Emergency department JjjhYJ1740-11-95H48:06:52Physician Emergency department [id number] .2.370557|[id number] for patient sjfk70560-6Xalgvvgim department NoteLNUTMB[address] Ul[id number] 52DNAKWZSSQDXYVRQJELNGIC1260-32-04 T16:06:521.2.840.398521.1.72.3.15| 1.2.840.556060.1.13.104.2.7.2.7278 [id number]
--- NOTE | 2023-01-15 03:58 | EDPHYS ---
Physician Documentation [facility] Name: Winter Hubbard Age: 52 yrs Sex: Female : 1970 Arrival Date: 01/15/2023 Time: 01:12 Bed 7 Private MD: BENNY Physician Eduardo Ríos HPI: 01/15 05:44 This 52 yrs old Female presents to ER via Ambulatory with complaints of METALLIC TASTE. rt 05:44 Patient presents to the ED with multiple complaints which she believes stems from a rt spine surgery about 2 years ago in which she states that she was vaccinated for COVID against her well while she was under anesthesia. She reports pain to that area since then. She reports having post-COVID symptoms. She is also concerned that she may be intermittently exposed to fentanyl because her son is abusing fentanyl. States that she has metallic taste in her mouth which she states may be from an abscessed tooth, she does have follow-up appointment with dentist scheduled. She is concerned for having mold exposure. Symptoms are mild in severity, no other aggravating or alleviating factors.. 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 Flu vaccine is not up to date. - Social history:: Smoking status: Patient reports the use of cigarette tobacco products, smokes one pack cigarettes per day. Patient uses street drugs, marijuana, Patient/guardian denies using alcohol, IV drugs. - Family history:: not pertinent. ROS: 05:44 Constitutional: Negative for fever, chills, and weight loss, ENT: Negative for injury, rt pain, and discharge, Cardiovascular: Negative for chest pain, palpitations, and edema, Respiratory: Negative for shortness of breath, cough, wheezing, and pleuritic chest pain, Abdomen/GI: Negative for abdominal pain, nausea, vomiting, diarrhea, and constipation, MS/Extremity: Negative for injury and deformity, Skin: Negative for injury, rash, and discoloration, Exam: 05:44 Constitutional: This is a well developed, well nourished patient who is awake, alert, rt and in no acute distress. Chest/axilla: Normal chest wall appearance and motion. Nontender with no deformity. No lesions are appreciated. Cardiovascular: Regular rate and rhythm with a normal S1 and S2. No gallops, murmurs, or rubs. Normal PMI, no JVD. No pulse deficits. Respiratory: Lungs have equal breath sounds bilaterally, clear to auscultation and percussion. No rales, rhonchi or wheezes noted. No increased work of breathing, no retractions or nasal flaring. Abdomen/GI: Soft, non-tender, with normal bowel sounds. No distension or tympany. No guarding or rebound. No evidence of tenderness throughout. Skin: Warm, dry with normal turgor. Normal color with no rashes, no lesions, and no evidence of cellulitis. MS/ Extremity: Pulses equal, no cyanosis. Neurovascular intact. Full, normal range of motion. 05:44 ENT: Multiple dental caries noted, right TM is clear, cerumen impaction noted to the left TM.. Vital Signs: 01:42 BP 151 / 73; Pulse 79; Resp 16 S; Temp 97.8(O); Pulse Ox 98% on R/A; Weight 47.63 kg; jw7 Height 5 ft. 1 in. ; Pain 0/10; 04:06 BP 135 / 79; Pulse 80; Resp 18; Temp 97.8(O); Pulse Ox 98% on R/A; nw1 01:42 Body Mass Index 19.84 (47.63 kg, 154.94 cm) [facility] 01:42 Pain Scale: Adult jw7 MDM: 02:02 Patient medically screened. rt 05:58 Differential Diagnosis Dental caries, dental infection. Data reviewed: vital signs, rt nurses notes. Counseling: I had a detailed discussion with the patient and/or guardian regarding the historical points, exam findings, and any diagnostic results supporting the discharge/admit diagnosis, the need for outpatient follow up. Administered Medications: No medications were administered Disposition Summary: 01/15/23 03:58 Discharge Ordered Notes: Location: Home rt Problem: new rt Symptoms: have improved rt Condition: Stable rt Diagnosis - Dental caries, unspecified rt Followup: rt - With: Private Physician - When: 2 - 3 days - Reason: Discharge Instructions: - Discharge Summary Sheet rt - Dental Caries, Adult rt Forms: - Medication Reconciliation Form rt - Thank You Letter rt - Antibiotic Education rt - Prescription Opioid Use rt - Patient Portal Instructions rt - Leadership Thank You Letter rt Prescriptions: - Ativan 1 mg Oral tablet - take 1 tablet ORAL route every 8 hours As needed; 3 tablet; Refills: 0, Product rt Selection Permitted - Augmentin 875-125 mg Oral Tablet - take 1 tablet ORAL route every 12 hours for 10 days; 20 tablet; Refills: 0, rt Product Selection Permitted Signatures: Kyra Miller RN RN jw7 Eduardo Ríos MD MD rt
--- NOTE | 2023-01-15 03:58 | ER ---
Nurse's Notes [facility] Name: Winter Hubbard Age: 52 yrs Sex: Female : 1970 Arrival Date: 01/15/2023 Time: 01:12 Bed 7 Private MD: Diagnosis: Dental caries, unspecified Presentation: 01/15 01:42 Chief complaint:. Coronavirus screen: At this time, the client does not indicate any [facility] symptoms associated with coronavirus-19. Ebola Screen: No symptoms or risks identified at this time. Initial Sepsis Screen: Does the patient meet any 2 criteria? No. Patient's initial sepsis screen is negative. Does the patient have a suspected source of infection? No. Patient's initial sepsis screen is negative. Risk Assessment: Do you want to hurt yourself or someone else? Patient reports no desire to harm self or others. Onset of symptoms was January 15, 2023. 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 Flu vaccine is not up to date. - Social history:: Smoking status: Patient reports the use of cigarette tobacco products, smokes one pack cigarettes per day. Patient uses street drugs, marijuana, Patient/guardian denies using alcohol, IV drugs. - Family history:: not pertinent. Screenin:33 [facility] ED Fall Risk Assessment (Adult) History of falling in the last 3 months, nw1 including since admission No falls in past 3 months (0 pts) Confusion or Disorientation Yes (5 pts) Intoxicated or Sedated No (0 pts) Impaired Gait No (0 pts) Mobility Assist Device Used No (0 pt) Altered Elimination No (0 pt) Score/Fall Risk Level 3 or more points = High Risk Maintained a safe environment, Educated pt \T\ family on fall prevention, incl call for assistance when getting out of bed, Assessed \T\ reinforced patient's understanding of fall precautions, Provided non-skid footwear, Hourly rounding (assess needs \T\ fall precautionary measures) done. Abuse screen: Denies threats or abuse. Denies injuries from another. Pt states she believes son has been doing drugs and believes its in the air of her house and that she has inhaled some of the drugs, Pt states that that she has a metallic taste in her mouth. Nutritional screening: No deficits noted. Tuberculosis screening: No symptoms or risk factors identified. Assessment: 02:33 General: Appears Behavior is anxious, restless. Pain: Denies pain. Neuro: Level of nw1 Consciousness is awake, alert, obeys commands, Oriented to person, place, time, Concession Manager are equal bilaterally Moves all extremities. Full function Gait is steady, Speech is normal. Respiratory: Airway is patent Trachea midline Respiratory effort is even, unlabored, Respiratory pattern is regular, symmetrical. GI: No signs and/or symptoms were reported involving the gastrointestinal system. Abdomen is flat, Bowel sounds present X 4 quads. Abd is soft and non tender X 4 quads. Derm: No signs and/or symptoms reported regarding the dermatologic system. Skin is intact, is healthy with good turgor, Skin is dry. Musculoskeletal: No signs and/or symptoms reported regarding the musculoskeletal system. Capillary refill < 3 seconds, Range of motion: intact in all extremities. Vital Signs: 01:42 BP 151 / 73; Pulse 79; Resp 16 S; Temp 97.8(O); Pulse Ox 98% on R/A; Weight 47.63 kg; jw7 Height 5 ft. 1 in. ; Pain 0/10; 04:06 BP 135 / 79; Pulse 80; Resp 18; Temp 97.8(O); Pulse Ox 98% on R/A; nw1 01:42 Body Mass Index 19.84 (47.63 kg, 154.94 cm) jw7 01:42 Pain Scale: Adult [facility] ED Course: 01:13 Patient arrived in ED. ag3 01:18 Eduardo Ríos MD is Attending Physician. rt 01:48 Arm band placed on. jw7 02:05 Leila Parsons, ISAAC is Primary Nurse. nw1 02:33 Patient has correct armband on for positive identification. Bed in low position. Call nw1 light in reach. Side rails up X2. Provided Education on: POC. Door closed. Noise minimized. 02:33 No provider procedures requiring assistance completed. nw1 03:40 Patient did not have IV access during this emergency room visit. nw1 04:06 Triage completed. nw1 Administered Medications: No medications were administered Medication: 02:33 VIS not applicable for this client. nw1 Outcome: 03:58 Discharge ordered by MD. rt 04:04 Discharged to home ambulatory, nw1 04:04 Condition: stable 04:04 Discharge instructions given to patient, Instructed on discharge instructions, follow up and referral plans. medication usage, Demonstrated understanding of instructions, follow-up care, medications, Prescriptions given X 2, 04:23 Patient left the ED. nw1 Signatures: Haylee Elizondo Jodi RN RN jw7 Eduardo Ríos MD MD rt Leila Parsons, ISAAC RN nw1 Corrections: (The following items were deleted from the chart) 01:48 01:38 Chief complaint: jw7 jw7
[2023-01-15 04:36] VITALS: TEMP 97.8; O2SAT 98
[2023-01-15 04:38] VITALS: BP 135/79
== END 2023-01-15 04:23 | disposition home or self-care (01) ==
LOC: ER 01:12
DX: K02.9 Dental caries, unspecified (principal); F17.210 Nicotine dependence, cigarettes, uncomplicated
CPT/HCPCS: 99283

== ENCOUNTER → 2023-03-18 | Emergency (ER) | payer OTHER ==
[~2023-03-18] MED LIST: LORAZEPAM 1 MG TABLET ONE
[2023-03-18 05:20] LABS: Absolute Lymphocytes (CBC) 1.5 K/uL (0.7-4.9); Lymphocytes % 20.1 % (15.3-44.8); MCV 85.1 fL (80-100); MPV 9.2 fL (7.6-11.3); Platelets 214 thou/uL (152-406); RBC Red Blood Cell Count 4.46 M/uL (3.86-4.86)
[2023-03-18 05:37] LABS: Albumin 3.8 g/dL (3.4-5.0); Bilirubin Direct 0.2 mg/dL (0-0.2); Bilirubin Indirect, Calculated 0.5 mg/dL (0.2-0.8); Bilirubin Total 0.7 mg/dL (0.2-1.0); Magnesium 2.3 mg/dL (1.6-2.4); Potassium 3.2 mEq/L (3.5-5.1); Protein, Total 6.9 g/dL (6.4-8.2); Troponin High Sensitivity 3.9 pg/mL (<58.9)
--- NOTE | 2023-03-18 06:11 | ER ---
Nurse's Notes [facility] Name: Winter Hubbard Age: 52 yrs Sex: Female : 1970 Arrival Date: 03/18/2023 Time: 04:33 Bed 8 Private MD: Diagnosis: Shortness of breath Presentation: 03/18 04:36 Chief complaint: EMS states: 52 year old female. reports shortness of breath and mid as9 epigastric pressure. patient thinks that she got worms in her stomach. Coronavirus screen: Vaccine status: Patient reports being unvaccinated. Ebola Screen: No symptoms or risks identified at this time. Initial Sepsis Screen: Does the patient meet any 2 criteria? No. Patient's initial sepsis screen is negative. Does the patient have a suspected source of infection? No. Patient's initial sepsis screen is negative. Risk Assessment: Do you want to hurt yourself or someone else? Patient reports no desire to harm self or others. Onset of symptoms was March 18, 2023. 04:36 Method Of Arrival: EMS: [facility] as9 04:36 Acuity: AMALIA 3 as9 Triage Assessment: 04:36 General: Appears comfortable, Behavior is cooperative, anxious. Pain: Denies pain. as9 Neuro: Level of Consciousness is awake, alert, obeys commands, Oriented to person, place, time, situation. Neuro: Cardiovascular: Capillary refill < 3 seconds Patient's skin is warm and dry. Respiratory: Airway is patent Respiratory effort is even, unlabored, Respiratory pattern is regular, symmetrical. GI: Abdomen is round non-distended. GI: Reports worms/parasite in her stomach. : No signs and/or symptoms were reported regarding the genitourinary system. Derm: Skin is pink, warm \T\ dry. Musculoskeletal: Circulation, motion, and sensation intact. Range of motion: intact in all extremities. Historical: - Allergies: 04:42 No Known Allergies; as9 - PMHx: 04:42 Bipolar disorder; COPD; Hypothyroidism; Anxiety; as9 - PSHx: 04:42 C6 and C7 surgery; section; tubal ligation; as9 - Immunization history:: Adult Immunizations not up to date. - Social history:: Smoking status: Patient reports the use of cigarette tobacco products, smokes one pack cigarettes per day. - Family history:: not pertinent. Screenin:47 [facility] ED Fall Risk Assessment (Adult) History of falling in the last 3 months, as9 including since admission No falls in past 3 months (0 pts) Confusion or Disorientation No (0 pts) Intoxicated or Sedated No (0 pts) Impaired Gait No (0 pts) Mobility Assist Device Used No (0 pt) Altered Elimination No (0 pt) Score/Fall Risk Level 0 - 2 = Low Risk Oriented to surroundings, Maintained a safe environment, Hourly rounding (assess needs \T\ fall precautionary measures) done. Abuse screen: Denies threats or abuse. Denies injuries from another. Nutritional screening: No deficits noted. Tuberculosis screening: No symptoms or risk factors identified. Assessment: 04:36 General: see triage assessment. as9 05:00 Reassessment: pt. refused IV . IV removed. as9 06:00 Reassessment: Patient and/or family updated on plan of care and expected duration. Pain ha1 level reassessed. Patient is alert, oriented x 3, equal unlabored respirations, skin warm/dry/pink. Patient states symptoms have improved. Vital Signs: 04:36 BP 142 / 61; Pulse 69; Resp 18; Temp 98; Pulse Ox 97% on R/A; Weight 68.04 kg; Height 5 as9 ft. 3 in. ; 06:00 BP 135 / 71; Pulse 81; Resp 19; Pulse Ox 95% on R/A; ha1 04:36 Body Mass Index 26.57 (68.04 kg, 160.02 cm) as9 ED Course: 04:36 Patient arrived in ED. as9 04:36 Arm band placed on left wrist. as9 04:40 Eduardo Ríos MD is Attending Physician. rt 04:42 Triage completed. as9 04:45 Inserted saline lock: 22 gauge in right antecubital area, using aseptic technique. as9 Blood collected. 04:47 Patient has correct armband on for positive identification. Bed in low position. Call as9 light in reach. Side rails up X 1. 05:00 IV discontinued, intact, bleeding controlled, No redness/swelling at site. Pressure as9 dressing applied. 05:25 Basic Metabolic Panel Sent. 9 05:25 CBC with Diff Sent. 9 05:25 LFT's Sent. 05:25 Magnesium Sent. as9 05:25 Troponin HS Sent. 05:32 XRAY Chest (1 view) In Process Unspecified. EDMS 06:00 Provided Education on: anxiety management . ha1 06:44 No provider procedures requiring assistance completed. ha1 Administered Medications: 05:34 Drug: LORazepam PO 1 mg PO once Route: PO; ha1 06:00 Follow up: Response: No adverse reaction ha1 Medication: 04:48 VIS not applicable for this client. Outcome: 06:11 Discharge ordered by . rt 06:44 Discharged to home ambulatory, ha 06:44 Condition: stable 06:44 Discharge instructions given to patient, Instructed on discharge instructions, follow up and referral plans. Demonstrated understanding of instructions, follow-up care, 06:46 Patient left the ED. ha1 Signatures: Dispatcher [employer] EDMS Virginia Paz, RN RN ha1 Eduardo Ríos MD MD rt Dinh Acharya RN RN as9
--- NOTE | 2023-03-18 06:11 | EDPHYS ---
Physician Documentation [facility] Name: Winter Hubbard Age: 52 yrs Sex: Female : 1970 Arrival Date: 03/18/2023 Time: 04:33 Bed 8 Private MD: ED Physician Eduardo Ríos HPI: 03/18 05:31 This 52 yrs old Female presents to ER via EMS with complaints of Shortness of breath. rt 05:31 Patient presents to the ED stating that she felt like she was suffocating earlier rt today. This is subsequently resolved. The patient states that she is currently taking ivermectin for what she presumes is a parasitic infection. Stated that several days ago, she did cough up some mucus and has difficulty and coughing up her phlegm. She continues to smoke. Denies other acute complaints, symptoms are mild in severity, no other aggravating or elevating factors. Historical: - Allergies: 04:42 No Known Allergies; as9 - PMHx: 04:42 Bipolar disorder; COPD; Hypothyroidism; Anxiety; as9 - PSHx: 04:42 C6 and C7 surgery; section; tubal ligation; as9 - Immunization history:: Adult Immunizations not up to date. - Social history:: Smoking status: Patient reports the use of cigarette tobacco products, smokes one pack cigarettes per day. - Family history:: not pertinent. ROS: 05:31 Constitutional: Negative for fever, chills, and weight loss, Cardiovascular: Negative rt for chest pain, palpitations, and edema, Abdomen/GI: Negative for abdominal pain, nausea, vomiting, diarrhea, and constipation, MS/Extremity: Negative for injury and deformity, Skin: Negative for injury, rash, and discoloration, Neuro: Negative for headache, weakness, numbness, tingling, and seizure, 05:31 Respiratory: Positive for cough, shortness of breath, Exam: 05:31 Constitutional: This is a well developed, well nourished patient who is awake, alert, rt and in no acute distress. Head/Face: Normocephalic, atraumatic. Chest/axilla: Normal chest wall appearance and motion. Nontender with no deformity. No lesions are appreciated. Cardiovascular: Regular rate and rhythm with a normal S1 and S2. No gallops, murmurs, or rubs. Normal PMI, no JVD. No pulse deficits. Respiratory: Lungs have equal breath sounds bilaterally, clear to auscultation and percussion. No rales, rhonchi or wheezes noted. No increased work of breathing, no retractions or nasal flaring. Abdomen/GI: Soft, non-tender, with normal bowel sounds. No distension or tympany. No guarding or rebound. No evidence of tenderness throughout. Skin: Warm, dry with normal turgor. Normal color with no rashes, no lesions, and no evidence of cellulitis. MS/ Extremity: Pulses equal, no cyanosis. Neurovascular intact. Full, normal range of motion. Neuro: Awake and alert, GCS 15, oriented to person, place, time, and situation. Cranial nerves II-XII grossly intact. Motor strength 5/5 in all extremities. Sensory grossly intact. Cerebellar exam normal. Normal gait. 05:31 ECG was reviewed by the Attending Physician. Vital Signs: 04:36 BP 142 / 61; Pulse 69; Resp 18; Temp 98; Pulse Ox 97% on R/A; Weight 68.04 kg; Height 5 as9 ft. 3 in. ; 06:00 BP 135 / 71; Pulse 81; Resp 19; Pulse Ox 95% on R/A; ha1 04:36 Body Mass Index 26.57 (68.04 kg, 160.02 cm) as9 MDM: 04:41 Patient medically screened. rt 06:11 Differential Diagnosis Pneumonia, pneumothorax, panic attack, CHF, COPD. Data reviewed: rt vital signs, nurses notes. I considered the following discharge prescriptions or medication management in the emergency department Medications were administered in the Emergency Department. See MAR. Independent interpretation of the following test(s) in the Emergency Department X-Ray: My interpretation is No pneumonia seen on interpretation of x-ray images. Test considered but Not performed: CT: Low suspicion for PE, CT angiogram not indicated. Care significantly affected by the following chronic conditions: Chronic Obstructive Pulmonary Disease. Counseling: I had a detailed discussion with the patient and/or guardian regarding the historical points, exam findings, and any diagnostic results supporting the discharge/admit diagnosis, lab results, radiology results, the need for outpatient follow up. 03/18 05:00 Order name: Basic Metabolic Panel; Complete Time: 05:50 rt 03/18 05:00 Order name: CBC with Diff; Complete Time: 05:50 rt 02/02 05:00 Order name: LFT's; Complete Time: 05:50 rt 03/18 05:00 Order name: Magnesium; Complete Time: 05:50 rt 03/18 05:00 Order name: Troponin HS; Complete Time: 05:50 rt 03/18 05:00 Order name: XRAY Chest (1 view) rt 03/18 05:00 Order name: EKG; Complete Time: 05:00 rt 03/18 05:00 Order name: Cardiac monitoring; Complete Time: 05:25 rt 02 05:00 Order name: EKG - Nurse/Tech; Complete Time: 05:25 rt 02 05:00 Order name: IV Saline Lock; Complete Time: 05:25 rt 02 05:00 Order name: Labs collected and sent; Complete Time: 05:25 rt 02 05:00 Order name: O2 Per Protocol; Complete Time: 05:25 rt 02 05:00 Order name: O2 Sat Monitoring; Complete Time: 05:25 rt EC:31 Rate is 60 beats/min. Rhythm is regular, Normal Sinus Rhythm with No ectopy. QRS [place] rt is Normal. LA interval is normal. QRS interval is normal. QT interval is normal. No Q waves. T waves are Normal. No ST changes noted. Interpreted by me. Administered Medications: 05:34 Drug: LORazepam PO 1 mg PO once Route: PO; ha1 06:00 Follow up: Response: No adverse reaction ha1 Disposition Summary: 03/18/23 06:11 Discharge Ordered Notes: Location: Home rt Problem: new rt Symptoms: have improved rt Condition: Stable rt Diagnosis - Shortness of breath rt Followup: rt - With: Private Physician - When: Today - Reason: Discharge Instructions: - Discharge Summary Sheet rt - Shortness of Breath, Adult rt Forms: - Medication Reconciliation Form rt - Thank You Letter rt - Antibiotic Education rt - Prescription Opioid Use rt - Patient Portal Instructions rt - Leadership Thank You Letter rt Signatures: Dispatcher [employer] Virginia Marroquin, RN RN ha1 Eduardo Ríos MD MD rt Dinh Acharya RN RN as9
[2023-03-18 07:19] VITALS: BP 135/71; TEMP 98; O2SAT 95
--- NOTE | 2023-03-18 17:29 | RAD REPORT ---
EXAM DESCRIPTION: Chest Single View CLINICAL HISTORY: DYSPNEA COMPARISON: None TECHNIQUE: Single AP view of the chest. FINDINGS: Lung volumes adequate. Cardiac silhouette is normal in size. No pneumothorax. No large pleural effusion. No focal consolidation. No acute bony finding. Partially visualized cervical spine hardware. Surgical clips project over the midline thoracic inlet. IMPRESSION: No acute cardiopulmonary findings. Electronically signed by: Eric Haque MD 03/18/2023 05:52 AM ERP PROJECT MANAGER Due to temporary technical issues with the PACS/Fluency reporting system, reports are being signed by the in house radiologists without review as a courtesy to insure prompt reporting. The interpreting radiologist is fully responsible for the content of the report.
--- NOTE | 2023-03-21 15:11 | EKG ---
Test Date: 2023-03-18 Test Time: 05:13:30 Librarian Head: MEASUREMENT RESULTS: Intervals: Rate: 60 CO: 134 QRSD: 78 QT: 474 QTc: 474 [place]: P: 51 CO: 134 QRS: 93 T: 74 INTERPRETIVE STATEMENTS: Normal sinus rhythm Normal ECG Compared to ECG 07/16/2020 21:29:24 No significant changes Electronically Signed On 03-21-23 15:02:46 THAW SHED HEATER TENDER by Koffi Ochoa
== END ==
LOC: ER 04:33
DX: R06.02 Shortness of breath (principal); J44.9 Chronic obstructive pulmonary disease, unspecified; F17.210 Nicotine dependence, cigarettes, uncomplicated
CPT/HCPCS: 36415; 71045; 80048; 80076; 83735; 84484; 85025; 93005

== ENCOUNTER → 2023-04-12 | Emergency (ER) | payer OTHER ==
--- NOTE | 2023-04-12 13:01 | ER ---
Nurse's Notes [facility] Name: Winter Hubbard Age: 53 yrs Sex: Female : 1970 Arrival Date: 04/12/2023 Time: 11:59 Bed 13 Private MD: Diagnosis: Sinus inflammation, possible mold exposure Presentation: 04/12 12:10 Chief complaint: Patient states: "I think I have mold in my house and my head feels as6 really hot and I've been having sinus issues". Coronavirus screen: At this time, the client does not indicate any symptoms associated with coronavirus-19. Ebola Screen: No symptoms or risks identified at this time. Initial Sepsis Screen: Does the patient meet any 2 criteria? No. Patient's initial sepsis screen is negative. Does the patient have a suspected source of infection? No. Patient's initial sepsis screen is negative. Risk Assessment: Do you want to hurt yourself or someone else? Patient reports no desire to harm self or others. Onset of symptoms was April 12, 2023. 12:10 Acuity: AMALIA 3 as6 12:10 Method Of Arrival: Ambulatory as6 Triage Assessment: 12:12 General: Appears in no apparent distress. Behavior is calm, cooperative. Pain: as6 Complains of pain in head. 13:11 GI: Reports. 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 - Social history:: Smoking status: Patient reports the use of cigarette tobacco products, smokes one pack cigarettes per day. Screenin:18 [facility] ED Fall Risk Assessment (Adult) Score/Fall Risk Level 0 - 2 = Low Risk. Abuse as6 screen: Denies threats or abuse. Denies injuries from another. Nutritional screening: No deficits noted. Tuberculosis screening: No symptoms or risk factors identified. Assessment: 13:10 GI: Abdomen is non-distended. ap3 Vital Signs: 12:10 BP 137 / 107; Pulse 94; Resp 18 S; Temp 98.6(TE); Pulse Ox 97% on R/A; as6 ED Course: 12:01 Patient arrived in ED. mg5 12:05 Padmaja Machado MD is Attending Physician. sp3 12:10 Arm band placed on. as6 12:11 Triage completed. as6 12:18 Bed in low position. Call light in reach. Side rails up X 1. as6 12:39 Lou Flores, RN is Primary Nurse. nj1 13:10 No provider procedures requiring assistance completed. Patient did not have IV access ap3 during this emergency room visit. 13:11 Provided Education on: discharge instructions. ap3 Administered Medications: No medications were administered Medication: 12:18 VIS not applicable for this client. as6 Outcome: 13:01 Discharge ordered by . sp3 13:10 Discharged to home ambulatory, ap3 13:10 Condition: good 13:10 Discharge instructions given to patient, Instructed on discharge instructions, follow up and referral plans. Demonstrated understanding of instructions, follow-up care, 13:11 Patient left the ED. ap3 Signatures: Sara Chicas, RN RN ap3 Padmaja Machado MD MD sp3 Vahe Billings RN RN as6 Lou Flores, RN RN josephine Rohini Chang mg5
--- NOTE | 2023-04-12 13:02 | EDPHYS ---
Physician Documentation [facility] Name: Winter Hubbard Age: 53 yrs Sex: Female : 1970 Arrival Date: 04/12/2023 Time: 11:59 Bed 13 Private MD: ED Physician Padmaja Machado HPI: 04/12 12:57 This 53 yrs old Female presents to ER via Ambulatory with complaints of Nausea, Doesn't sp3 Feel Right - Brain Feels Hot. 12:57 53-year-old female with history of bipolar, COPD, anxiety now presents to the ED with sp3 chief complaint wanting to get testing done for mold. 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 She denies any fever, chest pain, shortness of breath, cough, abdominal pain, nausea, vomiting, diarrhea, or any other signs or symptoms on ROS at this time.. 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 - Social history:: Smoking status: Patient reports the use of cigarette tobacco products, smokes one pack cigarettes per day. ROS: 12:59 Constitutional: Negative for fever, chills, and weight loss, Eyes: Negative for injury, sp3 pain, redness, and discharge, Neck: Negative for injury, pain, and swelling, Cardiovascular: Negative for chest pain, palpitations, and edema, Respiratory: Negative for shortness of breath, cough, wheezing, and pleuritic chest pain, Abdomen/GI: Negative for abdominal pain, nausea, vomiting, diarrhea, and constipation, Back: Negative for injury and pain, MS/Extremity: Negative for injury and deformity, Skin: Negative for injury, rash, and discoloration, Neuro: Negative for headache, weakness, numbness, tingling, and seizure, Psych: Negative for depression, anxiety, suicide ideation, homicidal ideation, and hallucinations, 12:59 All other systems are negative, Exam: 12:59 Constitutional: This is a well developed, well nourished patient who is awake, alert, sp3 and in no acute distress. Head/Face: Normocephalic, atraumatic. Eyes: Pupils equal round and reactive to light, extra-ocular motions intact. Lids and lashes normal. Conjunctiva and sclera are non-icteric and not injected. Cornea within normal limits. Periorbital areas with no swelling, redness, or edema. ENT: Nares patent. No nasal discharge, no septal abnormalities noted. External auditory canals are clear. Oropharynx with no redness, swelling, or masses, exudates, or evidence of obstruction, uvula midline. Mucous membranes moist. Neck: Trachea midline, no thyromegaly or masses palpated, and no cervical lymphadenopathy. Supple, full range of motion without nuchal rigidity, or vertebral point tenderness. No Meningismus. Chest/axilla: Normal chest wall appearance and motion. Nontender with no deformity. No lesions are appreciated. Cardiovascular: Regular rate and rhythm with a normal S1 and S2. No gallops, murmurs, or rubs. Normal PMI, no JVD. No pulse deficits. Respiratory: Lungs have equal breath sounds bilaterally, clear to auscultation and percussion. No rales, rhonchi or wheezes noted. No increased work of breathing, no retractions or nasal flaring. Abdomen/GI: Soft, non-tender, with normal bowel sounds. No distension or tympany. No guarding or rebound. No evidence of tenderness throughout. Back: No spinal tenderness. No costovertebral tenderness. Full range of motion. Skin: Warm, dry with normal turgor. Normal color with no rashes, no lesions, and no evidence of cellulitis. MS/ Extremity: Pulses equal, no cyanosis. Neurovascular intact. Full, normal range of motion. Neuro: Awake and alert, GCS 15, oriented to person, place, time, and situation. Cranial nerves II-XII grossly intact. Motor strength 5/5 in all extremities. Sensory grossly intact. Cerebellar exam normal. Normal gait. Psych: Awake, alert, with orientation to person, place and time. Behavior, mood, and affect are within normal limits. Vital Signs: 12:10 BP 137 / 107; Pulse 94; Resp 18 S; Temp 98.6(TE); Pulse Ox 97% on R/A; as6 MDM: 12:23 Patient medically screened. sp3 12:59 Data reviewed: vital signs, nurses notes, old medical records. ED course: 53-year-old sp3 female who is here for allergy testing for mold. I explained to her that that is not something we do in the ED. Patient has no medical emergency at this time. I will place her on Zithromax to calm her fears and treat any possible sinusitis symptoms that she may have. I did not get into her existing treatment plan with her "functional doctor" but I did mention that it is unlikely that she received the COVID-vaccine without her consent and that the COVID-vaccine does not cause the symptoms that she is having.. Administered Medications: No medications were administered Disposition Summary: 04/12/23 13:01 Discharge Ordered Notes: Location: Home sp3 Condition: Stable sp3 Diagnosis - Sinus inflammation, possible mold exposure sp3 Followup: sp3 - With: Private Physician - When: Upon discharge from the Emergency Department - Reason: Continuance of care Discharge Instructions: - Discharge Summary Sheet sp3 - Sinusitis, Adult sp3 Forms: - Medication Reconciliation Form sp3 - Thank You Letter sp3 - Antibiotic Education sp3 - Prescription Opioid Use sp3 - Patient Portal Instructions sp3 - Leadership Thank You Letter sp3 Prescriptions: - Zithromax Z-Kvng 250 mg Oral Tablet - take 1 tablet ORAL route as directed for 5 days Day 1 - take two (2) tablets sp3 one time. Day 2, 3, 4 , 5 take one (1) tablet once daily.; 6 tablet; Refills: 0, Product Selection Permitted Signatures: Padmaja Machado MD MD sp3 Vahe Billings RN RN as6
[2023-04-12 13:47] VITALS: BP 137/107; TEMP 98.6; O2SAT 97
== END ==
LOC: ER 11:59
DX: J01.90 Acute sinusitis, unspecified (principal); F17.210 Nicotine dependence, cigarettes, uncomplicated

== ENCOUNTER 2023-05-21 13:44 | Emergency (ER) | payer OTHER ==
--- NOTE | 2023-05-21 14:38 | ER ---
Nurse's Notes [facility] Name: Winter Hubbard Age: 53 yrs Sex: Female : 1970 Arrival Date: 05/21/2023 Time: 13:44 Bed 16 Private MD: Diagnosis: Rash and other nonspecific skin eruption Presentation: 05/20 14:15 Chief complaint: Chief complaint: Chief complaint: Patient states: "Everything started nj since i was vaccinated, COVID vaccine. It is a bioweapon. Told by a doctor she has amnesia and long covid symptoms". "I've been better recently", starts speaking about shingles and pneumonia vaccine. Complains of being sick to stomach Tuesday, "last few days I have been feeling tingling and burning under my skin just like when i had the COVID vaccine". Concerned about shingles. Coronavirus screen: Vaccine status: Patient reports receiving the 2nd dose of the covid vaccine. Ebola Screen: Patient denies travel to an Ebola-affected area in the 21 days before illness onset. Initial Sepsis Screen: Does the patient meet any 2 criteria? No. Patient's initial sepsis screen is negative. Does the patient have a suspected source of infection? No. Patient's initial sepsis screen is negative. Risk Assessment: Do you want to hurt yourself or someone else? Patient reports no desire to harm self or others. Onset of symptoms was May 2023. 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 - Infectious Disease History:: Denies. - Social history:: Smoking status: Patient reports the use of cigarette tobacco products, smokes two packs cigarettes per day. Screenin:44 [facility] ED Fall Risk Assessment (Adult) History of falling in the last 3 months, me1 including since admission No falls in past 3 months (0 pts) Confusion or Disorientation No (0 pts) Intoxicated or Sedated No (0 pts) Impaired Gait No (0 pts) Mobility Assist Device Used No (0 pt) Altered Elimination No (0 pt) Score/Fall Risk Level 0 - 2 = Low Risk Maintained a safe environment, Provided non-skid footwear, Hourly rounding (assess needs \\T\\ fall precautionary measures) done. Abuse screen: Denies threats or abuse. Nutritional screening: No deficits noted. Tuberculosis screening: No symptoms or risk factors identified. Assessment: 14:44 General: Appears well groomed, well developed, well nourished, Behavior is cooperative, me1 anxious, Reports feels like shes fixing to have a panic attack and has already taken her anxiety meds. Asked to speak to the Dr again. KALEY Guillen notified of request. Pain: Denies pain. Neuro: Level of Consciousness is awake, alert, obeys commands, Oriented to person, place, time, situation, Appropriate for age. Cardiovascular: Capillary refill < 3 seconds Patient's skin is warm and dry. Respiratory: Airway is patent Respiratory effort is even, unlabored, Respiratory pattern is regular, symmetrical. GI: No signs and/or symptoms were reported involving the gastrointestinal system. : No signs and/or symptoms were reported regarding the genitourinary system. EENT: No signs and/or symptoms were reported regarding the EENT system. Derm: Skin is intact, is healthy with good turgor, Skin is pink, warm \\T\\ dry. Musculoskeletal: No signs and/or symptoms reported regarding the musculoskeletal system. Vital Signs: 14:15 BP 119 / 70; Pulse 94; Resp 16; Temp 98(TE); Pulse Ox 98% ; Weight 47.63 kg; Height 5 nj1 ft. 1 in. ; 14:47 BP 122 / 80; Pulse 80; Resp 16; Pulse Ox 98% on R/A; me1 15:15 BP 129 / 85; Pulse 83; Resp 16; Pulse Ox 95% on R/A; me1 14:15 Body Mass Index 19.84 (47.63 kg, 154.94 cm) [facility] ED Course: 13:46 Patient arrived in ED. rg4 14:12 Rosario Yang F[facility]-C [facility]. kb 14:12 Everardo Diaz MD is Attending Physician. kb 14:30 Triage completed. nj1 14:30 Arm band placed on right wrist. nj1 14:34 Melyssa Tidwell, RN is Primary Nurse. me1 14:44 Patient has correct armband on for positive identification. Bed in low position. Call me1 light in reach. Side rails up X2. Provided Education on: POC. Verbalized understanding. . 14:44 No provider procedures requiring assistance completed. Patient did not have IV access me1 during this emergency room visit. Administered Medications: 15:22 Drug: Ondansetron Oral Disintegrating Tablet Oral Disintegrating Tablet 4 mg PO once me1 Route: PO; 15:31 Follow up: Response: No adverse reaction me1 Medication: 14:44 VIS not applicable for this client. me1 Outcome: 14:37 Discharge ordered by . beto 15:30 Discharged to home ambulatory, with family, me1 15:30 Condition: stable 15:30 Discharge instructions given to patient, family, Instructed on discharge instructions, follow up and referral plans. medication usage, Demonstrated understanding of instructions, follow-up care, medications, Prescriptions given X 1, 15:31 Patient left the ED. me1 Signatures: Rosario Yang, SPICE MILLER-C SPICE MILLER-Jessica Uribe rg4 Lou Flores, RN RN nj1 Melyssa Tidwell, RN RN me1 Corrections: (The following items were deleted from the chart) 14:32 14:15 BP 119 / 70; Pulse 94bpm; Resp 16bpm; Pulse Ox 98%; Temp 98F Temporal; nj1 nj1 14:36 14:15 Chief complaint: Patient states: "Everything started since i was vaccinated, me1 COVID vaccine. It is a bioweapon. Told by a doctor she has amnesia and long covid symptoms". "I've been better recently", starts speaking about shingles and pneumonia vaccine. Complains of being sick to stomach Tuesday, "last few days I have been feeling tingling and burning under my skin just like when i had the COVID vaccine". Concerned about shingles. Chief complaint: Patient states: "Everything started since i was vaccinated, COVID vaccine. It is a bioweapon. Told by a doctor she has amnesia and long covid symptoms". "I've been better recently", starts speaking about shingles and pneumonia vaccine. Complains of being sick to stomach Tuesday, "last few days I have been feeling tingling and burning under my skin just like when i had the COVID vaccine". Concerned about shingles. Chief complaint: Patient states: "Everything started since i was vaccinated, COVID vaccine. It is a bioweapon. Told by a doctor she has amnesia and long covid symptoms". "I've been better recently", starts speaking about shingles and pneumonia vaccine. Complains of being sick to stomach Tuesday, "last few days I have been feeling tingling and burning under my skin just like when i had the COVID vaccine". Concerned about shingles. nj1
--- NOTE | 2023-05-21 14:38 | EDPHYS ---
Physician Documentation [facility] Name: Winter Hubbard Age: 53 yrs Sex: Female : 1970 Arrival Date: 05/21/2023 Time: 13:44 Bed 16 Private MD: Everardo Anaya HPI: 05/20 17:12 This 53 yrs old Female presents to ER via Wheelchair with complaints of Personal Issue. kb 17:12 Pt is a 53 year old female who presents for rash that she noticed just area captain. States a kb friend of hers had the shingles vaccine a few days ago, states they were together afterwards and she believes the viral shedding from the vaccine did something to her. States she was feeling nauseous within 10 minutes of being around her friend on Tuesday and has not felt quite right since then. states she noticed a rash to right shoulder just area captain and started to panic. Reports she took an ativan and came here. States she believes she has shingles because she was around her friend that had the vaccine. States she has been to multiple dr's because of similar issues she has been having after being given the covid vaccine while she was in surgery and they had prescribed her ivermectin which has always worked in the past. . 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 - Infectious Disease History:: Denies. - Social history:: Smoking status: Patient reports the use of cigarette tobacco products, smokes two packs cigarettes per day. ROS: 17:10 Constitutional: As per HPI kb Exam: 17:10 Head/Face: Normocephalic, atraumatic. ENT: Moist Mucous membranes Cardiovascular: kb Regular rate Respiratory: Respirations even and unlabored. No increased work of breathing. Talking in full sentences Abdomen/GI: Soft, non-tender. No distention Skin: Warm, dry with normal turgor. Normal color. MS/ Extremity: Pulses equal, no cyanosis. Neurovascular intact. Full, normal range of motion. Neuro: Awake and alert, GCS 15, oriented to person, place, time, and situation. Moves all extremities. Normal gait. 17:10 Constitutional: The patient appears alert, awake, anxious, 17:10 Psych: Behavior/mood is cooperative, anxious, Affect is animated, Oriented to person, place, time, Vital Signs: 14:15 BP 119 / 70; Pulse 94; Resp 16; Temp 98(TE); Pulse Ox 98% ; Weight 47.63 kg; Height 5 nj1 ft. 1 in. ; 14:47 BP 122 / 80; Pulse 80; Resp 16; Pulse Ox 98% on R/A; me1 15:15 BP 129 / 85; Pulse 83; Resp 16; Pulse Ox 95% on R/A; me1 14:15 Body Mass Index 19.84 (47.63 kg, 154.94 cm) nj1 MDM: 14:12 Patient medically screened. kb 17:10 Differential diagnosis: shingles, anxiety, psychosis, paranoia. Data reviewed: vital kb signs, nurses notes. Test considered but Not performed: Labs: cbc, cmp considered but pt states if we put an IV in her it would trigger a panic attack. States she really just needs the ivermectin because that is what has worked for her in the past. Counseling: I had a detailed discussion with the patient and/or guardian regarding the historical points, exam findings, and any diagnostic results supporting the discharge/admit diagnosis, the need for outpatient follow up, a family practitioner, to return to the emergency department if symptoms worsen or persist or if there are any questions or concerns that arise at home. 17:17 ED course: No rash visible on exam.. kb Administered Medications: 15:22 Drug: Ondansetron Oral Disintegrating Tablet Oral Disintegrating Tablet 4 mg PO once me1 Route: PO; 15:31 Follow up: Response: No adverse reaction me1 Disposition Summary: 05/21/23 14:37 Discharge Ordered Notes: Location: Home kb Condition: Stable kb Diagnosis - Rash and other nonspecific skin eruption kb Followup: kb - With: Emergency Department - When: As needed - Reason: Worsening of condition Followup: kb - With: Private Physician - When: 2 - 3 days - Reason: Recheck today's complaints, Continuance of care, Re-evaluation by your physician Discharge Instructions: - Discharge Summary Sheet kb - Rash, Adult, [id number] kb Forms: - Medication Reconciliation Form kb - Thank You Letter kb - Antibiotic Education kb - Prescription Opioid Use kb - Patient Portal Instructions kb - Leadership Thank You Letter kb Prescriptions: - ivermectin 3 mg Oral tablet - take 3 tablet ORAL route once as a single dose, repeat dose in 1 week; 6 kb tablet; Refills: 0, Product Selection Permitted Signatures: Rosario Yang FNP-C FNP-Ckb Jac[place], Norma RN RN nj1 Melyssa Tidwell, RN RN me1
[2023-05-21] MEDS ORDERED: ONDANSETRON 4 MG (ODT) TAB ONE (15:21)
[2023-05-21 19:11] VITALS: BP 129/85; TEMP 98; O2SAT 95
== END 2023-05-21 15:31 | disposition home or self-care (01) ==
LOC: ER 13:44
DX: R21 Rash and other nonspecific skin eruption (principal); F17.210 Nicotine dependence, cigarettes, uncomplicated
CPT/HCPCS: 99283; Q0162

== ENCOUNTER 2024-01-12 16:36 | Emergency (ER) | payer OTHER ==
--- NOTE | 2024-01-12 17:26 | ER ---
Nurse's Notes [facility] Name: Winter Hubbard Age: 53 yrs Sex: Female : 1970 Arrival Date: 01/12/2024 Time: 16:36 Bed 21 Private MD: Diagnosis: Contact with and (suspected) exposure to mold (toxic) Presentation: 01/11 17:08 Chief complaint: Patient states: headache and left ear pain of unknown start time. ap3 patient reports the pain is starts after she is in her apartment. Coronavirus screen: At this time, the client does not indicate any symptoms associated with coronavirus-19. Ebola Screen: No symptoms or risks identified at this time. 17:08 Method Of Arrival: Ambulatory ap3 17:09 Initial Sepsis Screen: Does the patient meet any 2 criteria? No. Patient's initial ap3 sepsis screen is negative. Does the patient have a suspected source of infection? No. Patient's initial sepsis screen is negative. Risk Assessment: Do you want to hurt yourself or someone else? Patient reports no desire to harm self or others. Onset of symptoms is unknown. 17:09 Acuity: AMALIA 4 ap3 Triage Assessment: 17:10 Headache History: The patient has had previous headaches and this one is similar to ap3 previous episodes. General: Appears in no apparent distress. Behavior is calm, cooperative, appropriate for age. Pain: Complains of pain in head, and ear Pain currently is 6 out of 10 on a pain scale. Pain began gradually. Pain: Also complains of no other associated symptoms. EENT: Reports ear pain. Neuro: Level of Consciousness is awake, alert, obeys commands, Oriented to person, place, time, situation, Appropriate for age. Cardiovascular: Patient's skin is warm and dry. Respiratory: Airway is patent Respiratory effort is even, unlabored, Respiratory pattern is regular, symmetrical. Historical: - Allergies: 17:10 No Known Allergies; ap3 - PMHx: 17:10 Anxiety; Bipolar disorder; COPD; Hypothyroidism; ruptured disc c6 and c7 ap3 (Hypothyroidism); - PSHx: 17:10 C6 and C7 surgery; section; tubal ligation; ap3 - Immunization history:: Adult Immunizations up to date. - Infectious Disease History:: Denies. - Social history:: Smoking status: Patient reports the use of cigarette tobacco products, smokes one pack cigarettes per day. Screenin:00 [facility] ED Fall Risk Assessment (Adult) History of falling in the last 3 months, me1 including since admission No falls in past 3 months (0 pts) Confusion or Disorientation No (0 pts) Intoxicated or Sedated No (0 pts) Impaired Gait No (0 pts) Mobility Assist Device Used No (0 pt) Altered Elimination No (0 pt) Score/Fall Risk Level 0 - 2 = Low Risk Maintained a safe environment, Provided non-skid footwear, Hourly rounding (assess needs \T\ fall precautionary measures) done. 17:11 Abuse screen: Denies threats or abuse. Nutritional screening: No deficits noted. ap3 Tuberculosis screening: No symptoms or risk factors identified. Assessment: 17:00 General: Appears in no apparent distress. well groomed, well developed, well nourished, me1 Behavior is calm, cooperative, appropriate for age, Reports headache and left ear pain of unknown start time. patient reports the pain is starts after she is in her apartment. Pain: Complains of pain in left ear Pain does not radiate. Pain currently is 4 out of 10 on a pain scale. Quality of pain is described as aching, Pain began gradually, Is continuous. Neuro: Level of Consciousness is awake, alert, obeys commands, Oriented to person, place, time, situation, Appropriate for age. Cardiovascular: Patient's skin is warm and dry. Respiratory: Airway is patent Respiratory effort is even, unlabored, Respiratory pattern is regular, symmetrical. GI: No signs and/or symptoms were reported involving the gastrointestinal system. : No signs and/or symptoms were reported regarding the genitourinary system. EENT: Reports pain in left ear. Derm: Skin is intact, is healthy with good turgor, Skin is pink, warm \T\ dry. Musculoskeletal: No signs and/or symptoms reported regarding the musculoskeletal system. Vital Signs: 17:08 BP 146 / 94; Pulse 97; Resp 16; Temp 98.2; Pulse Ox 97% on R/A; Weight 48.53 kg; Height ap3 5 ft. 1 in. ; Pain 6/10; 17:08 Body Mass Index 20.22 (48.53 kg, 154.94 cm) ap3 17:08 Pain Scale: Adult ap3 ED Course: 16:43 Patient arrived in ED. im 16:44 Kathia Ying PA-C is PHCP. sb4 16:44 Eduardo Ríos MD is Attending Physician. sb4 17:00 Provided Education on: POC. Verbalized understanding. . me1 17:00 No provider procedures requiring assistance completed. Patient did not have IV access me1 during this emergency room visit. 17:09 Triage completed. ap3 17:11 Arm band placed on right wrist. ap3 17:11 Patient has correct armband on for positive identification. Bed in low position. Call ap3 light in reach. Side rails up X 1. Pulse ox on. NIBP on. Administered Medications: No medications were administered Medication: 17:00 VIS not applicable for this client. me1 Outcome: 17:26 Discharge ordered by . sb4 17:33 Patient left the ED. aa5 Signatures: Mary Diane RN RN aa5 Sara Chicas RN RN ap3 Kathia Ying PA-C PA-C sb4 Gladys Pedraza Melyssa Tidwell, RN RN me1 Corrections: (The following items were deleted from the chart) 17:27 17:08 Chief complaint: Patient states: headache and left ear pain of unknown start me1 time. patient reports the pain is starts after she is in her apartment. ap3
--- NOTE | 2024-01-12 17:26 | EDPHYS ---
Physician Documentation [facility] Name: Winter Hubbard Age: 53 yrs Sex: Female : 1970 Arrival Date: 01/12/2024 Time: 16:36 Bed 21 Private MD: ED Physician Eduardo Ríos HPI: 01/11 18:58 This 53 yrs old Female presents to ER via Ambulatory with complaints of Headache, Ear sb4 Pain. 19:27 Patient presents today with extensive story regarding mold exposure in her apartment. sb4 States that when she is in contact with the mold, she experiences fatigue, memory loss, joint pain, sinus congestion, cough. But when she is away from it, her symptoms resolved. States that she was exposed to it yesterday and now is experiencing headache and ear fullness. States that she has already seen her primary care for this and has had blood work done. Historical: - Allergies: 17:10 No Known Allergies; ap3 - PMHx: 17:10 Anxiety; Bipolar disorder; COPD; Hypothyroidism; ruptured disc c6 and c7 ap3 (Hypothyroidism); - PSHx: 17:10 C6 and C7 surgery; section; tubal ligation; ap3 - Immunization history:: Adult Immunizations up to date. - Infectious Disease History:: Denies. - Social history:: Smoking status: Patient reports the use of cigarette tobacco products, smokes one pack cigarettes per day. ROS: 19:27 Constitutional: Negative for fever, chills, and weight loss, sb4 19:27 ENT: Positive for ear pain, 19:27 Neuro: Positive for headache, 19:27 All other systems are negative, Exam: 19:29 Constitutional: This is a well developed, well nourished patient who is awake, alert, sb4 and in no acute distress. Head/Face: Normocephalic, atraumatic. Eyes: Extra-ocular motions intact. Periorbital areas with no swelling, redness, or edema. ENT: Mucous membranes moist. Cardiovascular: Regular rate and rhythm with a normal S1 and S2. Respiratory: No increased work of breathing, no retractions or nasal flaring. Abdomen/GI: Soft, non-tender, no distension. Skin: Warm, dry with normal turgor. Normal color with no rashes, no lesions, and no evidence of cellulitis. 19:29 ENT: TM's: fluid levels, on the left, Vital Signs: 17:08 BP 146 / 94; Pulse 97; Resp 16; Temp 98.2; Pulse Ox 97% on R/A; Weight 48.53 kg; Height ap3 5 ft. 1 in. ; Pain 6/10; 17:08 Body Mass Index 20.22 (48.53 kg, 154.94 cm) ap3 17:08 Pain Scale: Adult ap3 MDM: 16:45 Medical Screening Exam initiated sb4 19:29 Data reviewed: vital signs, nurses notes, and as a result, I will discharge patient. sb4 Counseling: I had a detailed discussion with the patient and/or guardian regarding the historical points, exam findings, and any diagnostic results supporting the discharge/admit diagnosis, the need for outpatient follow up, for definitive care, to return to the emergency department if symptoms worsen or persist or if there are any questions or concerns that arise at home. Administered Medications: No medications were administered Disposition: 18:44 Co-signature as Attending Physician, Eduardo Ríos MD I reviewed the patient's care rt provided by the Advanced Practice Provider and agree with the diagnosis and treatment plan. 20:01 Co-signature as Attending Physician, Eduardo Ríos MD I reviewed the patient's care rt provided by the Advanced Practice Provider and agree with the diagnosis and treatment plan. Disposition Summary: 01/12/24 17:26 Discharge Ordered Notes: Location: Home sb4 Problem: an ongoing problem sb4 Symptoms: are unchanged sb4 Condition: Stable sb4 Diagnosis - Contact with and (suspected) exposure to mold (toxic) sb4 Followup: sb4 - With: Private Physician - When: As needed - Reason: Recheck today's complaints, Re-evaluation by your physician Discharge Instructions: - Discharge Summary Sheet sb4 - Allergies, Adult, [id number] sb4 - Otitis Media With Effusion, Adult sb4 Forms: - Patient Portal Instructions sb4 - Leadership Thank You Letter sb4 Prescriptions: - Afrin (oxymetazoline) 0.05 % Nasal spray, non-aerosol - spray 2 spray INTRANASAL route every 12 hours for 3 days; 1 Applicator; sb4 Refills: 0, Product Selection Permitted - Loratadine 10 mg Oral Tablet - take 1 tablet ORAL route once daily; 14 tablet; Refills: 0, Product Selection sb4 Permitted Signatures: Sara Chicas RN RN ap3 Kathia Ying PA-C PA-C sb4 Eduardo Ríos MD MD rt Melyssa Tidwell, RN RN me1
[2024-01-12 18:13] VITALS: BP 146/94; TEMP 98.2; O2SAT 97
== END 2024-01-12 17:33 | disposition home or self-care (01) ==
LOC: ER 16:36
DX: Z77.120 Contact with and (suspected) exposure to mold (toxic) (principal); R51.9 Headache, unspecified; F17.210 Nicotine dependence, cigarettes, uncomplicated
CPT/HCPCS: 99282

== ENCOUNTER 2024-01-28 06:29 | Emergency (ER) | payer OTHER ==
--- NOTE | 2024-01-28 07:46 | EDPHYS ---
Physician Documentation [facility] Name: Winter Hubbard Age: 53 yrs Sex: Female : 1970 Arrival Date: 01/28/2024 Time: 06:29 Bed DIS1 Private MD: ED Physician El Patricio HPI: 01/27 07:40 This 53 yrs old Female presents to ER via Ambulatory with complaints of Hand Pain - BL bo1 Rash and cuts. 07:40 The patient or guardian reports Lesion to the left 5th digit from mold exposure. bo1 07:41 Pt alleges exposure to mold in an apt. She has broken lease and moved out based on the bo1 serological IGE mold report that shows an elevation of one of the listed mold types. Pt has shown the result from the test on her mobile phone. Her PCP has clinic hours today at 8am.. Historical: - Allergies: 07:09 No Known Allergies; iw - PMHx: 07:09 Anxiety; Bipolar disorder; COPD; Hypothyroidism; ruptured disc c6 and c7 iw (Hypothyroidism); - PSHx: 07:09 C6 and C7 surgery; section; tubal ligation; iw - Immunization history:: Adult Immunizations not up to date. - Infectious Disease History:: Denies. - Social history:: Smoking status: Patient reports the use of cigarette tobacco products, smokes one pack cigarettes per day. Vital Signs: 07:10 BP 132 / 79; Pulse 71; Resp 16; Temp 98.5; Pulse Ox 100% on R/A; Weight 47.63 kg; iw Height 5 ft. 2 in. ; 07:56 BP 152 / 76; Pulse 79; Resp 15; Pulse Ox 99% ; ko1 07:10 Body Mass Index 19.20 (47.63 kg, 157.48 cm) iw MDM: 07:16 Medical Screening Exam initiated bo1 07:43 Differential diagnosis: Possible mold exposure vs other dermatitis. ED course: Pt will bo1 be discharged to her PCP for F/U and review of the IGE results for further action if needed. Pt has already distanced herself and daughter from the alleged exposure source.. 07:44 Data reviewed: vital signs. bo1 Administered Medications: No medications were administered Disposition Summary: 01/28/24 07:45 Discharge Ordered Notes: Location: Home bo1 Problem: chronic bo1 Symptoms: are unchanged bo1 Condition: Stable bo1 Diagnosis - Allergy, unspecified bo1 Followup: bo1 - With: Private Physician - When: Today - Reason: Re-evaluation by your physician Discharge Instructions: - Discharge Summary Sheet bo1 - Allergies, Adult bo1 Forms: - Medication Reconciliation Form bo1 - Antibiotic Education bo1 - Prescription Opioid Use bo1 - Patient Portal Instructions bo1 - Leadership Thank You Letter bo1 Signatures: Damaris Parsons RN RN iw El Patricio MD MD bo1
--- NOTE | 2024-01-28 07:46 | ER ---
Nurse's Notes [facility] Name: Winter Hubbard Age: 53 yrs Sex: Female : 1970 Arrival Date: 01/28/2024 Time: 06:29 Bed DIS1 Private MD: Diagnosis: Allergy, unspecified Presentation: 01/27 07:05 Chief complaint: Patient states: hand lesions X 1 week , aching joints, nausea , iw headache X year. Coronavirus screen: At this time, the client does not indicate any symptoms associated with coronavirus-19. Ebola Screen: No symptoms or risks identified at this time. Initial Sepsis Screen: Does the patient meet any 2 criteria? No. Patient's initial sepsis screen is negative. Does the patient have a suspected source of infection? No. Patient's initial sepsis screen is negative. Risk Assessment: Do you want to hurt yourself or someone else? Patient reports no desire to harm self or others. Onset of symptoms was 2022. 07:05 Method Of Arrival: Ambulatory iw 07:05 Acuity: AMALIA 4 iw Triage Assessment: 07:56 General: Appears in no apparent distress. Behavior is appropriate for age. Pain: ko1 Complains of pain in generalized. Historical: - Allergies: 07:09 No Known Allergies; iw - PMHx: 07:09 Anxiety; Bipolar disorder; COPD; Hypothyroidism; ruptured disc c6 and c7 iw (Hypothyroidism); - PSHx: 07:09 C6 and C7 surgery; section; tubal ligation; iw - Immunization history:: Adult Immunizations not up to date. - Infectious Disease History:: Denies. - Social history:: Smoking status: Patient reports the use of cigarette tobacco products, smokes one pack cigarettes per day. Screenin:56 [facility] ED Fall Risk Assessment (Adult) History of falling in the last 3 months, ko1 including since admission No falls in past 3 months (0 pts) Confusion or Disorientation No (0 pts) Intoxicated or Sedated No (0 pts) Impaired Gait No (0 pts) Mobility Assist Device Used No (0 pt) Altered Elimination No (0 pt) Score/Fall Risk Level 0 - 2 = Low Risk Oriented to surroundings, Maintained a safe environment, Educated pt \T\ family on fall prevention, incl call for assistance when getting out of bed, Assessed \T\ reinforced patient's understanding of fall precautions, Hourly rounding (assess needs \T\ fall precautionary measures) done. Abuse screen: Denies threats or abuse. Denies injuries from another. Nutritional screening: No deficits noted. Tuberculosis screening: No symptoms or risk factors identified. Vital Signs: 07:10 BP 132 / 79; Pulse 71; Resp 16; Temp 98.5; Pulse Ox 100% on R/A; Weight 47.63 kg; iw Height 5 ft. 2 in. ; 07:56 BP 152 / 76; Pulse 79; Resp 15; Pulse Ox 99% ; ko1 07:10 Body Mass Index 19.20 (47.63 kg, 157.48 cm) iw ED Course: 06:34 Patient arrived in ED. ra3 07:06 Triage completed. iw 07:10 Arm band placed on. iw 07:16 El Patricio MD is Attending Physician. bo1 07:17 Ahsan Pearson, RN is Primary Nurse. bp 07:56 Patient has correct armband on for positive identification. Provided Education on: ko1 discharge. 07:56 No provider procedures requiring assistance completed. Patient did not have IV access ko1 during this emergency room visit. Administered Medications: No medications were administered Medication: 07:56 VIS not applicable for this client. ko1 Outcome: 07:45 Discharge ordered by . bo1 07:56 Discharged to home ambulatory, with family, ko1 07:56 Condition: stable 07:56 Discharge instructions given to patient, family, Instructed on discharge instructions, follow up and referral plans. Demonstrated understanding of instructions, follow-up care, 07:58 Patient left the ED. ko1 Signatures: Damaris Parsons RN RN Ahsan Pearson RN Rosa Benson RN RN ko1 Alva, Ruby ra3 El Patricio MD MD bo1
[2024-01-28 08:01] VITALS: TEMP 98.5
[2024-01-28 08:03] VITALS: BP 152/76; O2SAT 99
== END 2024-01-28 07:58 | disposition home or self-care (01) ==
LOC: ER 06:29
DX: R21 Rash and other nonspecific skin eruption (principal); M79.642 Pain in left hand; M79.641 Pain in right hand; T78.40XA Allergy, unspecified, initial encounter
CPT/HCPCS: 99282

== ENCOUNTER 2024-03-21 18:31 | Emergency (ER) | payer OTHER ==
[2024-03-21] MEDS ORDERED: LORAZEPAM 1 MG TABLET ONE (19:37)
--- NOTE | 2024-03-21 20:45 | RAD REPORT ---
EXAMINATION: ONE VIEW CHEST XR CLINICAL INDICATION: Female, 53 years old.,DYSPNEA TECHNIQUE: Frontal chest projection is submitted. Examination is limited by patient positioning and t echnique. COMPARISON: 01/04/2024 FINDINGS: The lungs are diffusely emphysematous but grossly clear. No pneumothorax or sizable effusion. The he art is normal in size. Mediastinal contours are unremarkable. IMPRESSION: No acute intrathoracic abnormalities.
--- NOTE | 2024-03-21 20:47 | EDPHYS ---
Physician Documentation [facility] Name: Winter Hubbard Age: 53 yrs Sex: Female : 1970 Arrival Date: 03/21/2024 Time: 18:31 Bed IW6 Private MD: BENNY Physician Everardo Diaz HPI: 03/21 21:43 This 53 yrs old Female presents to ER via EMS with complaints of Anxiety, Shortness Of kb Breath. 21:43 Pt is a 53 year old female who presents for shortness of breath that started this kb morning. States she has this reaction to mold and her apartment is filled with it. States she has had to move several times due to mold infestations and all of her belongings now have mold. States benadryl normally helps, but it wasn't helping today. Historical: - Allergies: 19:13 No Known Allergies; cm10 - PMHx: 19:13 Anxiety; Bipolar disorder; COPD; Hypothyroidism; ruptured disc c6 and c7 cm10 (Hypothyroidism); - PSHx: 19:13 C6 and C7 surgery; section; tubal ligation; cm10 - Immunization history:: Adult Immunizations up to date. - Infectious Disease History:: Denies. - Social history:: Smoking status: Patient reports the use of cigarette tobacco products, smokes one pack cigarettes per day. ROS: 21:42 Constitutional: As per HPI kb Exam: 21:42 Constitutional: This is a well developed, well nourished patient who is awake, alert, kb and in no acute distress. Head/Face: Normocephalic, atraumatic. ENT: Moist Mucous membranes Cardiovascular: Regular rate Respiratory: Respirations even and unlabored. No increased work of breathing. Talking in full sentences Abdomen/GI: Soft, non-tender. No distention Skin: Warm, dry with normal turgor. Normal color. MS/ Extremity: Pulses equal, no cyanosis. Neurovascular intact. Full, normal range of motion. Neuro: Awake and alert, GCS 15, oriented to person, place, time, and situation. 21:42 Constitutional: The patient appears anxious, Vital Signs: 19:12 BP 134 / 65; Pulse 57; Resp 15; Temp 98.1(O); Pulse Ox 97% ; Weight 45.36 kg; Height 5 cm10 ft. 1 in. ; Pain 0/10; 21:04 BP 131 / 69; Pulse 64; Resp 16 S; Temp 97.5(O); Pulse Ox 98% on R/A; lg3 19:12 Body Mass Index 18.89 (45.36 kg, 154.94 cm) cm10 19:12 Pain Scale: Adult cm10 MDM: 18:37 Medical Screening Exam initiated max 21:42 Differential diagnosis: anxiety, allergic reaction, COPD. Data reviewed: vital signs, kb nurses notes. Historians other than the Patient: EMS: [facility]. Counseling: I had a detailed discussion with the patient and/or guardian regarding the historical points, exam findings, and any diagnostic results supporting the discharge/admit diagnosis, radiology results, the need for outpatient follow up, a family practitioner, to return to the emergency department if symptoms worsen or persist or if there are any questions or concerns that arise at home. 03/21 18:38 Order name: Chest Single View XRAY; Complete Time: 20:46 kb Administered Medications: 20:16 Drug: LORazepam PO 1 mg PO once Route: PO; lg3 21:07 Follow up: Response: No adverse reaction; Marked relief of symptoms; Anxiety decreased lg3 Disposition Summary: 03/21/24 20:47 Discharge Ordered Notes: Location: Home kb Condition: Stable kb Diagnosis - Anxiety disorder, unspecified kb - Dyspnea kb Followup: kb - With: Private Physician - When: 2 - 3 days - Reason: Recheck today's complaints, Continuance of care, Re-evaluation by your physician Followup: kb - With: Emergency Department - When: As needed - Reason: Worsening of condition Discharge Instructions: - Discharge Summary Sheet kb - Shortness of Breath, Adult, [id number] kb - Panic Attack, [id number] kb Forms: - Medication Reconciliation Form kb - Antibiotic Education kb - Prescription Opioid Use kb - Patient Portal Instructions kb - Leadership Thank You Letter kb Signatures: Dispatcher [employer] EDRosario Webster, INDUSTRIAL ENG-C INDUSTRIAL ENG-Everardo Medeiros MD MD cha Able, Lacie, RN RN lg3 Alisson Hdz RN RN cm10 Corrections: (The following items were deleted from the chart) 18:39 18:38 BASIC METABOLIC PANEL+C.LAB.BRZ ordered. EDCO EDMS 18:39 18:38 CBC+H.LAB.BRZ ordered. EDMS EDMS 18:39 18:38 HEPATIC FUNCTION+C.LAB.BRZ ordered. EDMS EDMS 18:39 18:38 MAGNESIUM+C.LAB.BRZ ordered. EDMS EDMS 18:39 18:38 PROBNP+C.LAB.BRZ ordered. EDMS EDMS 18:39 18:38 PROTIME (+INR)+COAG.LAB.BRZ ordered. EDMS EDMS 18:39 18:38 Troponin High Sensitivity+C.LAB.BRZ ordered. EDMS EDMS 18:39 18:39 Chest Single View+RAD.RAD.BRZ ordered. EDMS EDMS 18:39 18:39 Urinalysis+U.LAB.BRZ ordered. EDMS EDMS 20:16 18:38 EKG - Nurse/Tech ordered. max lg3 21:02 18:38 Cardiac monitoring ordered. max lg3 21:02 18:38 IV Saline Lock ordered. max lg3 21:02 18:38 Labs collected and sent ordered. max lg3 21:02 18:38 Oxygen Per Protocol ordered. max lg3 21:02 18:38 O2 Sat Monitoring ordered. max lg3
--- NOTE | 2024-03-21 20:47 | ER ---
Nurse's Notes [facility] Name: Winter Hubbard Age: 53 yrs Sex: Female : 1970 Arrival Date: 03/21/2024 Time: 18:31 Bed IW6 Private MD: Diagnosis: Anxiety disorder, unspecified;Dyspnea Presentation: 03/21 19:12 Chief complaint: EMS states: Called to patient's home for allergic reaction. Pt states cm10 that she is having an allergic reaction to mold. Pt states that she felt like her throat was closing. Pt reports taking Benadryl. Pt currently speaking in complete sentence in triage. Respirations even and unlabored. Coronavirus screen: Client denies travel out of the [place] in the last 14 days. Ebola Screen: Patient denies travel to an Ebola-affected area in the 21 days before illness onset. Initial Sepsis Screen: Does the patient meet any 2 criteria? No. Patient's initial sepsis screen is negative. Does the patient have a suspected source of infection? No. Patient's initial sepsis screen is negative. Risk Assessment: Do you want to hurt yourself or someone else? Patient reports no desire to harm self or others. Onset of symptoms was March 21, 2024. 19:12 Method Of Arrival: EMS: [facility] cm10 19:12 Acuity: AMALIA 3 cm10 Triage Assessment: 19:14 General: Appears in no apparent distress. comfortable, Behavior is calm, cooperative. cm10 Pain: Denies pain. Neuro: No deficits noted. Level of Consciousness is awake, alert, obeys commands, Oriented to person, place, time, situation, Appropriate for age. Respiratory: No deficits noted. Airway is patent Respiratory effort is even, unlabored, Respiratory pattern is regular, symmetrical. Historical: - Allergies: 19:13 No Known Allergies; cm10 - PMHx: 19:13 Anxiety; Bipolar disorder; COPD; Hypothyroidism; ruptured disc c6 and c7 cm10 (Hypothyroidism); - PSHx: 19:13 C6 and C7 surgery; section; tubal ligation; cm10 - Immunization history:: Adult Immunizations up to date. - Infectious Disease History:: Denies. - Social history:: Smoking status: Patient reports the use of cigarette tobacco products, smokes one pack cigarettes per day. Screenin:04 [facility] ED Fall Risk Assessment (Adult) History of falling in the last 3 months, lg3 including since admission No falls in past 3 months (0 pts) Confusion or Disorientation No (0 pts) Intoxicated or Sedated No (0 pts) Impaired Gait No (0 pts) Mobility Assist Device Used No (0 pt) Altered Elimination No (0 pt) Score/Fall Risk Level 0 - 2 = Low Risk Oriented to surroundings, Maintained a safe environment, Educated pt \T\ family on fall prevention, incl call for assistance when getting out of bed, Assessed \T\ reinforced patient's understanding of fall precautions. Abuse screen: Denies threats or abuse. Denies injuries from another. Nutritional screening: No deficits noted. Tuberculosis screening: No symptoms or risk factors identified. Assessment: 21:04 General: Appears in no apparent distress. Behavior is anxious, fussy, restless. Pain: lg3 Denies pain. Neuro: Sanchez Agitation-Sedation Scale (RASS): +1 Restless Level of Consciousness is awake, alert, obeys commands, Oriented to person, place, time, situation. Cardiovascular: No deficits noted. Capillary refill < 3 seconds Clubbing of nail beds is absent JVD is absent Patient's skin is warm and dry. Rhythm is regular. Respiratory: No deficits noted. Airway is patent Respiratory effort is even, unlabored, Respiratory pattern is regular, symmetrical, Breath sounds are clear bilaterally. GI: No deficits noted. Abdomen is flat, non-distended. : No signs and/or symptoms were reported regarding the genitourinary system. EENT: No deficits noted. No signs and/or symptoms were reported regarding the EENT system. Derm: No deficits noted. Skin is intact, is healthy with good turgor, Skin is dry, Skin is normal, Skin temperature is warm. Musculoskeletal: No deficits noted. Circulation, motion, and sensation intact. Range of motion: intact in all extremities. Vital Signs: 19:12 BP 134 / 65; Pulse 57; Resp 15; Temp 98.1(O); Pulse Ox 97% ; Weight 45.36 kg; Height 5 cm10 ft. 1 in. ; Pain 0/10; 21:04 BP 131 / 69; Pulse 64; Resp 16 S; Temp 97.5(O); Pulse Ox 98% on R/A; lg3 19:12 Body Mass Index 18.89 (45.36 kg, 154.94 cm) cm10 19:12 Pain Scale: Adult cm10 ED Course: 18:32 Patient arrived in ED. viviana 18:37 Everardo Diaz MD is Attending Physician. max 18:38 [facility]C [facility] kb 19:05 Chest Single View XRAY In Process Unspecified. EDMS 19:13 Triage completed. cm10 19:14 Arm band placed on right wrist. Patient placed in waiting room. cm10 21:04 Patient has correct armband on for positive identification. lg3 21:04 No provider procedures requiring assistance completed. Patient did not have IV access lg3 during this emergency room visit. Administered Medications: 20:16 Drug: LORazepam PO 1 mg PO once Route: PO; lg3 21:07 Follow up: Response: No adverse reaction; Marked relief of symptoms; Anxiety decreased lg3 Medication: 21:04 VIS not applicable for this client. lg3 Outcome: 20:47 Discharge ordered by . kb 21:04 Discharged to home ambulatory, lg3 21:04 Condition: stable 21:04 Discharge instructions given to patient, Instructed on discharge instructions, follow up and referral plans. Demonstrated understanding of instructions, follow-up care, 21:07 Patient left the ED. lg3 Signatures: Dispatcher [employer] EDLA Rosario Yang FNP-C FNP-Everardo Medeiros MD MD cha Able, Lacie, RN RN lg3 Reina Winter jj6 Alisson Hdz, RN RN cm10
[2024-03-21 21:34] VITALS: BP 131/69; TEMP 97.5; O2SAT 98
== END 2024-03-21 21:07 | disposition home or self-care (01) ==
LOC: ER 18:31
DX: F41.9 Anxiety disorder, unspecified (principal); F17.210 Nicotine dependence, cigarettes, uncomplicated
CPT/HCPCS: 71045

== ENCOUNTER 2024-03-27 21:47 | Emergency (ER) | payer OTHER ==
--- NOTE | 2024-03-27 22:18 | ER ---
Nurse's Notes [facility] Name: Winter Hubbard Age: 53 yrs Sex: Female : 1970 Arrival Date: 03/27/2024 Time: 21:47 Bed Waiting Private MD: Diagnosis: Rash and other nonspecific skin eruption Presentation: 03/27 22:10 Chief complaint: Patient states: im bruising all over my legs, i cant carry my bags, i lg3 have a molds allergy, delfina been exposed to it, delfina taken Benadryl, i cant wear my clothes, my veins are popping up, my joints ache, delfina lost 6 pounds since yesterday. Coronavirus screen: Client denies travel out of the [place] in the last 14 days. At this time, the client does not indicate any symptoms associated with coronavirus-19. Ebola Screen: No symptoms or risks identified at this time. Risk Assessment: Do you want to hurt yourself or someone else? Patient reports no desire to harm self or others. Onset of symptoms is unknown. 22:10 Method Of Arrival: Ambulatory lg3 22:10 Acuity: AMALIA 5 lg3 Triage Assessment: 22:13 General: Appears in no apparent distress. Behavior is anxious, restless. Pain: lg3 Complains of pain in all over. EENT: No deficits noted. Neuro: Sanchez Agitation-Sedation Scale (RASS): +1 Restless Level of Consciousness is awake, alert, obeys commands, Oriented to person, place. Cardiovascular: No deficits noted. Capillary refill < 3 seconds Clubbing of nail beds is absent JVD is absent Patient's skin is warm and dry. Respiratory: No deficits noted. Airway is patent Respiratory effort is even, unlabored, Respiratory pattern is regular, symmetrical. GI: No deficits noted. Abdomen is flat, non-distended. : No signs and/or symptoms were reported regarding the genitourinary system. Derm: Skin is intact, is healthy with good turgor, Skin is dry, Skin is normal, Skin temperature is warm patient reports all over rash. no rash noted at this time. Musculoskeletal: No deficits noted. Circulation, motion, and sensation intact. Range of motion: intact in all extremities. 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 - Infectious Disease History:: Denies. - Social history:: Smoking status: Patient denies any tobacco usage or history of. Patient/guardian denies using alcohol, street drugs. Screenin:16 [facility] ED Fall Risk Assessment (Adult) History of falling in the last 3 months, lg3 including since admission No falls in past 3 months (0 pts) Confusion or Disorientation No (0 pts) Intoxicated or Sedated No (0 pts) Impaired Gait No (0 pts) Mobility Assist Device Used No (0 pt) Altered Elimination No (0 pt) Score/Fall Risk Level 0 - 2 = Low Risk Oriented to surroundings, Maintained a safe environment, Educated pt \T\ family on fall prevention, incl call for assistance when getting out of bed, Assessed \T\ reinforced patient's understanding of fall precautions. Abuse screen: Denies threats or abuse. Denies injuries from another. Nutritional screening: No deficits noted. Tuberculosis screening: No symptoms or risk factors identified. Assessment: 22:16 General: see triage assessment. lg3 Vital Signs: 22:10 lg3 22:10 pt refused vitals at this time lg3 ED Course: 21:49 Patient arrived in ED. im 21:53 Jose David Johnson MD is Attending Physician. ec2 22:13 Triage completed. lg3 22:13 Arm band placed on right wrist. lg3 22:16 Patient has correct armband on for positive identification. lg3 22:16 No provider procedures requiring assistance completed. Patient did not have IV access lg3 during this emergency room visit. Administered Medications: 22:20 Drug: Dexamethasone IM 10 mg IM once Route: IM; Site: right deltoid; lg3 22:21 Follow up: Response: No adverse reaction; Medication administered at discharge. lg3 Medication: 22:16 VIS not applicable for this client. lg3 Outcome: 22:17 Discharge ordered by . ec2 22:21 Discharged to home ambulatory, lg3 22:21 Condition: stable 22:21 Discharge instructions given to patient, Instructed on discharge instructions, follow up and referral plans. Demonstrated understanding of instructions, follow-up care, 22:21 Patient left the ED. lg3 Signatures: Donna Mccoy RN RN lg3 Gladys Pedraza Edwin, MD MD ec2
--- NOTE | 2024-03-27 22:18 | EDPHYS ---
Physician Documentation [facility] Name: Winter Hubbard Age: 53 yrs Sex: Female : 1970 Arrival Date: 03/27/2024 Time: 21:47 Bed Waiting Private MD: ED Physician Jose David Johnson HPI: 03/27 22:18 This 53 yrs old Female presents to ER via Ambulatory with complaints of mold ec2 exposure. 22:18 Patient arrives today for skin eruption. Patient reports that she has been experiencing ec2 some skin irritation throughout her body. reports that she been having occasional rashes throughout the body for the past 2-3 years. Reports concern for mold exposure. reports no difficulty breathing or other concerns. 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 - Infectious Disease History:: Denies. - Social history:: Smoking status: Patient denies any tobacco usage or history of. Patient/guardian denies using alcohol, street drugs. ROS: 22:22 Constitutional: as per hpi ec2 Exam: 22:22 Constitutional: GEN: NAD Head: atraumatic Eyes: EOMI Ears: External ears are ec2 normal. CV: regular rate LUNGS: no respiratory distress ABD: non-distended SKIN: Skin irritation noted throughout, consistent with patient frequently scratching herself no cellulitis appreciated MSK: no evidence of trauma Vital Signs: 22:10 lg3 22:10 pt refused vitals at this time lg3 MDM: 22:08 Medical Screening Exam initiated ec2 22:23 Data reviewed: vital signs, nurses notes. ED course: Patient arrives today for mole ec2 concerns. Examination is unrevealing. Will give patient Decadron for reported skin irritation. Will discharge home. No evidence of cellulitis, no evidence of infectious process. Administered Medications: 22:20 Drug: Dexamethasone IM 10 mg IM once Route: IM; Site: right deltoid; lg3 22:21 Follow up: Response: No adverse reaction; Medication administered at discharge. lg3 Disposition Summary: 03/27/24 22:17 Discharge Ordered Notes: Location: Home ec2 Condition: Stable ec2 Diagnosis - Rash and other nonspecific skin eruption ec2 Followup: ec2 - With: Private Physician - When: - Reason: Re-evaluation by your physician Discharge Instructions: - Discharge Summary Sheet ec2 - Rash, Adult ec2 Forms: - Medication Reconciliation Form ec2 - Antibiotic Education ec2 - Prescription Opioid Use ec2 - Patient Portal Instructions ec2 - Leadership Thank You Letter ec2 Signatures: Donna Mccoy RN RN lg3 Jose David Johnson MD MD ec2
[2024-03-27] MEDS ORDERED: dexAMETHasone 10 MG/ML VIAL ONE (22:19)
== END 2024-03-27 22:21 | disposition home or self-care (01) ==
LOC: ER 21:47
DX: R21 Rash and other nonspecific skin eruption (principal)
CPT/HCPCS: J1100

== ENCOUNTER 2024-04-03 09:34 | Emergency (ER) | payer OTHER ==
--- NOTE | 2024-04-03 09:50 | EDPHYS ---
Physician Documentation [facility] Name: Winter Hubbard Age: 53 yrs Sex: Female : 1970 Arrival Date: 04/03/2024 Time: 09:34 Bed IW1 Private MD: ED Physician Padmaja Machado HPI: 04/03 09:46 This 53 yrs old Female presents to ER via Unassigned with complaints of allergic sp3 reaction. 09:46 53-year-old female with history of anxiety and "mold allergy" now presents to the ED sp3 with chief complaint rash on feet, "blood veins popping", and general itchiness. Patient states this happens when she is exposed to a certain type of mold which has happened in the past. She states that the current place that she is residing has this type of mold in the HVAC system. She is currently actively seeking different place to stay including hotel room. She activated EMS today for the symptoms above which they transported her without incident and without any intervention with normal vital signs as reported by them. Review of systems negative for headache, neck pain, chest pain, shortness of breath, abdominal pain, vomiting, diarrhea, bleeding, syncope, known sick contacts, travel history, or any other signs or symptoms on ROS at this time.. Historical: - PMHx: 10:15 Anxiety; Bipolar disorder; COPD; Hypothyroidism; ruptured disc c6 and c7 iw (Hypothyroidism); - PSHx: 10:15 C6 and C7 surgery; section; tubal ligation; iw ROS: 09:47 Constitutional: Negative for fever, chills, and weight loss, Eyes: Negative for injury, sp3 pain, redness, and discharge, ENT: Negative for injury, pain, and discharge, Neck: Negative for injury, pain, and swelling, Cardiovascular: Negative for chest pain, palpitations, and edema, Respiratory: Negative for shortness of breath, cough, wheezing, and pleuritic chest pain, Abdomen/GI: Negative for abdominal pain, nausea, vomiting, diarrhea, and constipation, Back: Negative for injury and pain, MS/Extremity: Negative for injury and deformity, Neuro: Negative for headache, weakness, numbness, tingling, and seizure, Psych: Negative for depression, anxiety, suicide ideation, homicidal ideation, and hallucinations, Endocrine: Negative for neck swelling, polydipsia, polyuria, polyphagia, and marked weight changes, Hematologic/Lymphatic: Negative for swollen nodes, abnormal bleeding, and unusual bruising, 09:47 All other systems are negative, Exam: 09:48 Constitutional: This is a well developed, well nourished patient who is awake, alert, sp3 and in no acute distress. Head/Face: Normocephalic, atraumatic. Eyes: Pupils equal round and reactive to light, extra-ocular motions intact. Lids and lashes normal. Conjunctiva and sclera are non-icteric and not injected. Cornea within normal limits. Periorbital areas with no swelling, redness, or edema. Neck: Trachea midline, no thyromegaly or masses palpated, and no cervical lymphadenopathy. Supple, full range of motion without nuchal rigidity, or vertebral point tenderness. No Meningismus. Chest/axilla: Normal chest wall appearance and motion. Nontender with no deformity. No lesions are appreciated. Cardiovascular: Regular rate and rhythm with a normal S1 and S2. No gallops, murmurs, or rubs. Normal PMI, no JVD. No pulse deficits. Respiratory: Lungs have equal breath sounds bilaterally, clear to auscultation and percussion. No rales, rhonchi or wheezes noted. No increased work of breathing, no retractions or nasal flaring. Abdomen/GI: Soft, non-tender, with normal bowel sounds. No distension or tympany. No guarding or rebound. No evidence of tenderness throughout. Back: No spinal tenderness. No costovertebral tenderness. Full range of motion. MS/ Extremity: Pulses equal, no cyanosis. Neurovascular intact. Full, normal range of motion. Neuro: Awake and alert, GCS 15, oriented to person, place, time, and situation. Cranial nerves II-XII grossly intact. Motor strength 5/5 in all extremities. Sensory grossly intact. Cerebellar exam normal. Normal gait. Psych: Awake, alert, with orientation to person, place and time. Behavior, mood, and affect are within normal limits. 09:48 Skin: Mild redness on bilateral feet noted. Patient has no signs of anaphylaxis, oral involvement, tongue involvement, airway compromise, wheezing, or any other physical exam abnormalities at this time.. Vital Signs: 10:15 BP 136 / 104; Pulse 58; Resp 16; Temp 97.6; Pulse Ox 100% on R/A; iw MDM: 09:40 Medical Screening Exam initiated sp3 09:48 Data reviewed: vital signs, nurses notes, old medical records. ED course: 53-year-old sp3 female with allergic mold allergy with mild rash on the feet. And med/tele suspicious of significant allergic reaction, anaphylaxis or any other critical process. Will administer intramuscular Solu-Medrol and Benadryl and safely discharge patient home on p.o. prednisone with follow-up to PCP.. Administered Medications: 10:27 Not Given (Physician Discretion): methylprednisolone sodium [id number] mg IM once iw 10:28 Not Given (Physician Discretion): [id number] mg IM once iw 10:32 Drug: predniSONE PO 60 mg PO once Route: PO; iw 10:35 Follow up: Response: No adverse reaction iw 10:32 Drug: diphenhydrAMINE PO 25 mg PO once Route: PO; iw 10:35 Follow up: Response: No adverse reaction iw Disposition Summary: 04/03/24 09:49 Discharge Ordered Notes: Location: Home sp3 Condition: Stable sp3 Diagnosis - Allergic reaction sp3 Followup: sp3 - With: Private Physician - When: Upon discharge from the Emergency Department - Reason: Continuance of care Discharge Instructions: - Discharge Summary Sheet sp3 - Hives sp3 Forms: - Medication Reconciliation Form sp3 - Antibiotic Education sp3 - Prescription Opioid Use sp3 - Patient Portal Instructions sp3 - Leadership Thank You Letter sp3 Prescriptions: - Prednisone 20 mg Oral Tablet - take 2 tablets ORAL route once daily for 5 days; 10 tablet; Refills: 0, Product sp3 Selection Permitted Signatures: Damaris Parsons RN RN iw Padmaja Machado MD MD sp3
[2024-04-03] MEDS ORDERED: predniSONE 20 MG TAB ONE (10:25)
[2024-04-03] MEDS ORDERED: DIPHENHYDRAMINE 25 MG TAB/CAP ONE (10:25)
--- NOTE | 2024-04-03 10:33 | ER ---
Nurse's Notes [facility] Name: Winter Hubbard Age: 53 yrs Sex: Female : 1970 Arrival Date: 04/03/2024 Time: 09:34 Bed IW1 Private MD: Diagnosis: Allergic reaction Presentation: 04/03 10:14 Chief complaint: Patient states: sores from mold spores on foot. Coronavirus screen: At iw this time, the client does not indicate any symptoms associated with coronavirus-19. 10:14 Method Of Arrival: Ambulatory iw 10:14 Acuity: AMALIA 5 iw 10:15 Ebola Screen: No symptoms or risks identified at this time. Initial Sepsis Screen: Does iw the patient meet any 2 criteria? No. Patient's initial sepsis screen is negative. Does the patient have a suspected source of infection? No. Patient's initial sepsis screen is negative. Risk Assessment: Do you want to hurt yourself or someone else? Patient reports no desire to harm self or others. Onset of symptoms was April 03, 2024. Triage Assessment: 10:15 General: Appears in no apparent distress. Behavior is cooperative, anxious. iw Historical: - PMHx: 10:15 Anxiety; Bipolar disorder; COPD; Hypothyroidism; ruptured disc c6 and c7 iw (Hypothyroidism); - PSHx: 10:15 C6 and C7 surgery; section; tubal ligation; iw Screenin:15 [facility] ED Fall Risk Assessment (Adult) History of falling in the last 3 months, iw including since admission No falls in past 3 months (0 pts) Confusion or Disorientation No (0 pts) Intoxicated or Sedated No (0 pts) Impaired Gait No (0 pts) Mobility Assist Device Used No (0 pt) Altered Elimination No (0 pt) Score/Fall Risk Level 0 - 2 = Low Risk Oriented to surroundings. Abuse screen: Denies threats or abuse. Nutritional screening: No deficits noted. Tuberculosis screening: No symptoms or risk factors identified. Assessment: 10:15 General: Appears in no apparent distress. Behavior is anxious. Pain: Denies pain. iw Neuro: Level of Consciousness is awake, alert, obeys commands, Oriented to person, place, time, situation, Moves all extremities. Vital Signs: 10:15 BP 136 / 104; Pulse 58; Resp 16; Temp 97.6; Pulse Ox 100% on R/A; iw ED Course: 09:40 Patient arrived in ED. sp3 09:40 Padmaja Machado MD is Attending Physician. sp3 10:14 Damaris Parsons RN is Primary Nurse. iw 10:15 Triage completed. iw 10:15 Arm band placed on. iw 10:31 No provider procedures requiring assistance completed. Patient did not have IV access iw during this emergency room visit. Administered Medications: 10:27 Not Given (Physician Discretion): methylprednisolone sodium [id number] mg IM once iw 10:28 Not Given (Physician Discretion): [id number] mg IM once iw 10:32 Drug: predniSONE PO 60 mg PO once Route: PO; iw 10:35 Follow up: Response: No adverse reaction iw 10:32 Drug: diphenhydrAMINE PO 25 mg PO once Route: PO; iw 10:35 Follow up: Response: No adverse reaction iw Medication: 10:15 VIS not applicable for this client. iw Outcome: 09:49 Discharge ordered by MD. sp3 10:32 Discharged to home ambulatory, iw 10:32 Condition: good 10:32 Discharge instructions given to patient, Instructed on discharge instructions, follow up and referral plans. medication usage, Demonstrated understanding of instructions, follow-up care, medications, Prescriptions given X 1, 10:33 Patient left the ED. iw Signatures: Damaris Parsons RN RN iw Padmaja Machado MD MD sp3 Corrections: (The following items were deleted from the chart) 10:15 10:15 Pulse 58bpm; Resp 16bpm; Pulse Ox 100% RA; Temp 97.6F; iw iw
[2024-04-03 10:42] VITALS: BP 136/104; TEMP 97.6; O2SAT 100
== END 2024-04-03 10:33 | disposition home or self-care (01) ==
LOC: ER 09:34
DX: L50.9 Urticaria, unspecified (principal)
CPT/HCPCS: J7512

== ENCOUNTER 2024-10-10 21:56 | Emergency (ER) | payer OTHER ==
--- NOTE | 2024-10-10 23:30 | EDPHYS ---
Physician Documentation [facility] Name: Winter Hubbard Age: 54 yrs Sex: Female : 1970 Arrival Date: 10/10/2024 Time: 21:56 Bed IW3 Private MD: ED Physician Nick Pratt HPI: 10/10 23:24 This 54 yrs old Female presents to ER via Ambulatory with complaints of Patient states kb she was exposed to "poisons within the home.". 23:24 Pt is a 54 year old female who presents for mold poisoning that started a couple of kb days ago. STates she cleaned her apartment with hydrogen peroxide and vinegar as well as her clothes with borax. Has had the redness since then. No shortness of breath, resp distress. Historical: - Allergies: 22:48 No Known Allergies; vc1 - Home Meds: 22:48 None [Active]; vc1 - PMHx: 22:48 Anxiety; Bipolar disorder; COPD; Hypothyroidism; ruptured disc c6 and c7 vc1 (Hypothyroidism); psychiatric issues; Psychosis; - PSHx: 22:48 C6 and C7 surgery; section; tubal ligation; vc1 - Immunization history:: Client reports having NOT received the Covid vaccine. - Infectious Disease History:: Denies. - Social history:: Smoking status: Patient reports the use of cigarette tobacco products, smokes one pack cigarettes per day. ROS: 23:24 Constitutional: As per HPI kb Exam: 23:24 Constitutional: This is a well developed, well nourished patient who is awake, alert, kb and in no acute distress. Head/Face: Normocephalic, atraumatic. ENT: Moist Mucous membranes Respiratory: Respirations even and unlabored. No increased work of breathing. Talking in full sentences MS/ Extremity: Pulses equal, no cyanosis. Neurovascular intact. Full, normal range of motion. Neuro: Awake and alert, GCS 15, oriented to person, place, time, and situation. 23:24 Skin: erythema to bilateral hands. Vital Signs: 22:45 BP 156 / 74; Pulse 88; Resp 16; Temp 98.4; Pulse Ox 100% ; Weight 49.9 kg; Height 5 ft. vc1 1 in. ; 22:45 Body Mass Index 20.78 (49.90 kg, 154.94 cm) vc1 MDM: 23:16 Medical Screening Exam initiated kb 23:24 Data reviewed: vital signs, nurses notes. kb 23:27 Differential diagnosis: allergic reaction, chemical exposure. Counseling: I had a kb detailed discussion with the patient and/or guardian regarding the historical points, exam findings, and any diagnostic results supporting the discharge/admit diagnosis, the need for outpatient follow up, a family practitioner, to return to the emergency department if symptoms worsen or persist or if there are any questions or concerns that arise at home. Administered Medications: 23:43 Drug: Ondansetron PO 4 mg PO once Route: PO; vc1 23:44 Follow up: Response: Medication administered at discharge. vc1 23:43 Drug: Dexamethasone IM 10 mg IM once Route: IM; Site: right deltoid; vc1 23:43 Follow up: Response: Medication administered at discharge. vc1 23:43 Drug: LORazepam PO 1 mg PO once Route: PO; vc1 23:43 Follow up: Response: Medication administered at discharge. vc1 Disposition: 10/11 07:33 I reviewed the patient's care provided by the Advanced Practice Provider and agree with tw7 the diagnosis and treatment plan. Disposition Summary: 10/10/24 23:30 Discharge Ordered Notes: Location: Home kb Condition: Stable kb Diagnosis - Anxiety disorder, unspecified kb - Irritant contact dermatitis due to detergents kb Followup: kb - With: Emergency Department - When: As needed - Reason: Worsening of condition Followup: kb - With: Private Physician - When: 2 - 3 days - Reason: Recheck today's complaints, Continuance of care, Re-evaluation by your physician Discharge Instructions: - Discharge Summary Sheet kb - Contact Dermatitis, [place] kb - Generalized Anxiety Disorder, Adult kb Forms: - Medication Reconciliation Form kb - Antibiotic Education kb - Prescription Opioid Use kb - Patient Portal Instructions kb - Leadership Thank You Letter kb Prescriptions: - ondansetron 4 mg Oral Tablet,disintegrating - take 1 tablet ORAL route every 6 hours as needed for nausea and vomiting; 12 kb tablet; Refills: 0, Product Selection Permitted Signatures: Rosario Yang FNP-C FNP-Ckb Calcote, Vanessa, RN RN vc1 Nick Pratt MD MD tw7
--- NOTE | 2024-10-10 23:30 | ER ---
Nurse's Notes [facility] Name: Winter Hubbard Age: 54 yrs Sex: Female : 1970 Arrival Date: 10/10/2024 Time: 21:56 Bed IW3 Private MD: Diagnosis: Anxiety disorder, unspecified;Irritant contact dermatitis due to detergents Presentation: 10/10 22:45 Chief complaint: Patient states: having an allergic reaction to bilateral arms. vc1 Coronavirus screen: Client denies travel out of the [place] in the last 14 days. At this time, the client does not indicate any symptoms associated with coronavirus-19. Ebola Screen: Patient negative for fever greater than or equal to 101.5 degrees Fahrenheit, and additional compatible Ebola Virus Disease symptoms Patient denies exposure to infectious person. Patient denies travel to an Ebola-affected area in the 21 days before illness onset. No symptoms or risks identified at this time. Initial Sepsis Screen: Does the patient meet any 2 criteria? No. Patient's initial sepsis screen is negative. Does the patient have a suspected source of infection? No. Patient's initial sepsis screen is negative. Risk Assessment: Do you want to hurt yourself or someone else? Patient reports no desire to harm self or others. Onset of symptoms was October 10, 2024. 22:45 Method Of Arrival: Ambulatory vc1 22:45 Acuity: AMALIA 5 vc1 22:47 Note Pt states she took a drink of cola and tasted poison and hugged mom and spelt vc1 poison. Triage Assessment: 23:45 General: Appears in no apparent distress. slender, Behavior is cooperative, anxious. vc1 Pain: Denies pain. EENT: No deficits noted. No signs and/or symptoms were reported regarding the EENT system. Neuro: Level of Consciousness is awake, alert, obeys commands, Oriented to person, place. Cardiovascular: Heart tones S1 S2 present Capillary refill < 3 seconds Patient's skin is warm and dry. Respiratory: Airway is patent Respiratory effort is even, unlabored, Respiratory pattern is regular, symmetrical, Breath sounds are clear bilaterally. GI: No deficits noted. No signs and/or symptoms were reported involving the gastrointestinal system. : No deficits noted. No signs and/or symptoms were reported regarding the genitourinary system. Derm: Skin is intact, is healthy with good turgor, Skin is dry, Skin is normal, Skin temperature is warm. Musculoskeletal: Circulation, motion, and sensation intact. Range of motion: intact in all extremities. Historical: - Allergies: 22:48 No Known Allergies; vc1 - Home Meds: 22:48 None [Active]; vc1 - PMHx: 22:48 Anxiety; Bipolar disorder; COPD; Hypothyroidism; ruptured disc c6 and c7 vc1 (Hypothyroidism); psychiatric issues; Psychosis; - PSHx: 22:48 C6 and C7 surgery; section; tubal ligation; vc1 - Immunization history:: Client reports having NOT received the Covid vaccine. - Infectious Disease History:: Denies. - Social history:: Smoking status: Patient reports the use of cigarette tobacco products, smokes one pack cigarettes per day. Screenin:46 [facility] ED Fall Risk Assessment (Adult) History of falling in the last 3 months, vc1 including since admission No falls in past 3 months (0 pts) Confusion or Disorientation No (0 pts) Intoxicated or Sedated No (0 pts) Impaired Gait No (0 pts) Mobility Assist Device Used No (0 pt) Altered Elimination No (0 pt) Score/Fall Risk Level 0 - 2 = Low Risk Oriented to surroundings, Maintained a safe environment, Educated pt \T\ family on fall prevention, incl call for assistance when getting out of bed, Assessed \T\ reinforced patient's understanding of fall precautions, Hourly rounding (assess needs \T\ fall precautionary measures) done. Abuse screen: Denies threats or abuse. Nutritional screening: No deficits noted. Tuberculosis screening: No symptoms or risk factors identified. Vital Signs: 22:45 BP 156 / 74; Pulse 88; Resp 16; Temp 98.4; Pulse Ox 100% ; Weight 49.9 kg; Height 5 ft. vc1 1 in. ; 22:45 Body Mass Index 20.78 (49.90 kg, 154.94 cm) vc1 ED Course: 21:58 Patient arrived in ED. jj6 22:47 Triage completed. vc1 22:49 Arm band placed on no arm band on patient, placed arm band on right wrist. vc1 23:16 Rosario Yang FNP-C is [facility]. kb 23:16 Nick Pratt MD is Attending Physician. kb 23:46 No provider procedures requiring assistance completed. Patient did not have IV access vc1 during this emergency room visit. Administered Medications: 23:43 Drug: Ondansetron PO 4 mg PO once Route: PO; vc1 23:44 Follow up: Response: Medication administered at discharge. vc1 23:43 Drug: Dexamethasone IM 10 mg IM once Route: IM; Site: right deltoid; vc1 23:43 Follow up: Response: Medication administered at discharge. vc1 23:43 Drug: LORazepam PO 1 mg PO once Route: PO; vc1 23:43 Follow up: Response: Medication administered at discharge. vc1 Medication: 23:47 VIS not applicable for this client. vc1 Outcome: 23:30 Discharge ordered by MD. pérez 23:46 Discharged to home ambulatory, vc1 23:46 Condition: stable 23:46 Discharge instructions given to patient, Instructed on discharge instructions, follow up and referral plans. medication usage, Demonstrated understanding of instructions, follow-up care, medications, Prescriptions given X 1, 23:47 Patient left the ED. vc1 Signatures: Rosario Yang FNP-C FNP-Reina Seals [id number] Gia Ontiveros, RN RN vc1
[2024-10-10] MEDS ORDERED: ONDANSETRON 4 MG (ODT) TAB ONE (23:34)
[2024-10-10] MEDS ORDERED: LORAZEPAM 1 MG TABLET ONE (23:34)
[2024-10-11 09:26] VITALS: BP 156/74; TEMP 98.4; O2SAT 100
== END 2024-10-10 23:47 | disposition home or self-care (01) ==
LOC: ER 21:56
DX: F41.9 Anxiety disorder, unspecified (principal); L24.0 Irritant contact dermatitis due to detergents; F17.210 Nicotine dependence, cigarettes, uncomplicated
CPT/HCPCS: 96372; 99284; Q0162; J1100